=== PATIENT | male | born 1950 | race Caucasian/White ===

== ENCOUNTER 2023-05-09 11:20 | Outpatient (AMB) | payer MEDICARE, SELFPAY ==
--- NOTE | 2023-05-09 11:30 | MHC.PC.OV ---
Vital Signs 05/09/23 11:36 Height 6 ft 3.39 in Weight 189 lb BMI 23.4 BP 140/90 H Blood Pressure Location Lt brachial Position Sitting Pulse 77 Pulse Source Pulse Oximeter Pulse Oximetry (%) 99 Oxygen Delivery Method Room Air Intake Visit Reasons: high bp est. care Intake Note: Patient is a new patient here to establish care for HTN,Paroxysmal atrial fibrillation. Transferring care from Wilman Cramer MD from [facility]. 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: No Accompanied by: Self / Same As Patient Allergies LUCRECIA Inhibitors Allergy (Intermediate, Verified 05/09/23 12:02) Hyperkalemia Medication List - Last Reconciled 05/09/23 by Talha Hanson PA-C albuterol sulfate 90 mcg/actuation (Ventolin HFA) 2 puffs inhalation Q6H PRN 30 days aspirin (Adult Aspirin Regimen) 81 mg PO DAILY 90 days cholecalciferol (vitamin D3) 250 mcg PO DAILY ezetimibe (Zetia) 10 mg PO DAILY magnesium oxide 500 mg PO BID omega-3 fatty acids 1,000 mg PO BID rosuvastatin 10 mg PO DAILY 90 days telmisartan 80 mg PO DAILY 90 days ursodiol (BASIA Forte) 500 mg PO BEDTIME Tobacco use date assessed: 05/09/23 Fall risk assessment: No Falls in past year Last assessed Fall Risk: 05/09/23 Dental Screening Dental Screen Date: 05/09/23 Did you have a dental visit in the last 12 months?: Yes Did you have a dental problem in the last 6 months where you did not have access to dental care?: No Was dental information given to patient?: Patient has dentist HPI high bp est. care HPI Details Patient is a 73-year-old male here today for a new patient establish care visit./ Patient has a past medical history significant for hypertension, Congestive heart failure, asthma, hyperlipidemia Patient's previous PCP was Rub[facility]. He would like to establish care with local structural steel erector due to his dilated aorta and atherosclerotic heart disease. He continues on statin therapy and totally certain all for blood pressure control. Blood pressure slightly elevated today in office any attributes this to his recently traveling internationally. He otherwise denies any chest discomfort, palpitations. Does report mild headache at times. [facility] Medical History (Updated 05/09/23 @ 12:14 by Talha Hanson PA-C) Chronic prostatitis Social History Housing: House Patient Tobacco Use Status: Never used Tobacco e-Cigarette/Vaping Use: Never Used service: No Current occupational status: retired Current occupation: Cognitive needs: No Hearing needs: No Vision needs: No Questionnaire PHQ-9 Over the last 2 weeks, how often have you been bothered by any of the following problems? 1. Little interest or pleasure in doing things: not at all 2. Feeling down, depressed, or hopeless: not at all 3. Trouble falling or staying asleep, or sleeping too much: not at all 4. Feeling tired or having little energy: not at all 5. Poor appetite or overeating: not at all 6. Feeling bad about yourself - or that you are a failure or have let yourself or your family down: not at all 7. Trouble concentrating on things, such as reading the newspaper or watching television: not at all 8. Moving or speaking so slowly that other people could have noticed. Or the opposite - being so fidgety or restless that you have been moving around a lot more than usual: not at all 9. Thoughts that you would be better off or of hurting yourself in some way: not at all Total score: 0 Depression Screening Interpretation: Negative Depression Screening Done: Yes 60066 - PHQ-9 Billing: Yes Source: Developed by Drs. Mario Lee, Annabella Toscano, Gage Roberts and colleagues, with an educational malcolm from [employer]. Thrive Questionnaire Date Thrive assessed: 05/09/23 I am a: Patient What is your living situation today?: I have a steady place to live Within the past 12 months, did the food you bought not last and you didn't have the money to get more?: Never true Within the past 12 months, did you worry whether your food would run out before you got money to buy more?: Never true Do you have trouble paying for medicines?: No Do you have trouble getting transportation to medical appointments?: No Do you have trouble paying your heating and electricity bill?: No Do you have trouble taking care of your child, family member or friend?: No Do you have trouble with day-to-day activities such as bathing, preparing meals, shopping, managing finances, etc.?: No Are you currently unemployed and looking for a job?: No Are you interested in more education?: No Please select the resources that you would like help with: None Currently or been in a relationship where the following occur: no concerns reported AUDIT C Alcohol Use Questionnaire (AUDIT-C) 1. How often do you have a drink containing alcohol?: 2-3 times a week 2. How many drinks containing alcohol do you have on a typical day when you are drinking?: 1 or 2 3. How often do you have six or more drinks on one occasion?: Never Total Score: 3 NEMO-7 AMB Questionnaire NEMO-7 Date NEMO - 7 assessed: 05/09/23 Feeling nervous, anxious, or on edge: 0 = Not at all Not being able to stop or control worryin = Not at all Worrying too much about different things: 0 = Not at all Trouble relaxin = Not at all Being so restless that it is hard to sit still: 0 = Not at all Becoming easily annoyed or irritable: 0 = Not at all Feeling afraid as if something awful might happen: 0 = Not at all Total NEMO-7 score (0-4 normal; 5-9 mild; 10-14 moderate; 15-21 severe): 0 Source: Developed by Drs. Mario Lee, Annabella Toscano, Gage Roberts and colleagues, with an educational malcolm from [employer]. NEMO-7 Assessment Billing NEMO-7 Assessment Tool: NEMO-7 Assessment 99658 Review of Systems Const Denies headache(s) Eyes Denies loss of vision ENT Denies vertigo, Denies dizziness, Denies headache(s) and Denies sore throat Card Denies chest pain, Denies leg edema and Denies lightheadedness Resp Denies cough, Denies hemoptysis and Denies wheezing GI Denies abdominal pain, Denies melena, Denies constipation, Denies diarrhea and Denies vomiting Denies dysuria, Denies urinary frequency and Denies urinary urgency Musc Denies arthralgias, Denies joint swelling, Denies numbness and Denies tingling Neuro Denies Abnormal speech present, Denies behavioral changes, Denies vertigo, Denies dizziness, Denies headache(s), Denies loss of vision, Denies memory loss, Denies numbness and Denies tingling Psych Denies anxiety, Denies behavioral changes, Denies depression, Denies memory loss and Denies panic attacks Constantine/Lymph Denies easy bleeding and Denies easy bruising Aller/Immun Denies wheezing Physical exam (Primary Care) Vital Signs: Last Vital Signs Pulse 77 05/09/23 11:36 BP 140/90 H 05/09/23 11:36 Pulse Ox 99 05/09/23 11:36 Oxygen Delivery Method Room Air 05/09/23 11:36 BMI result Body Mass Index 23.4 Tobacco/Smoking Status: Tobacco use Status Tobacco use date assessed 05/09/23 05/09/23 11:52 Patient Tobacco Use Status Never used Tobacco 05/09/23 11:52 e-Cigarette/Vaping Use Never Used 05/09/23 11:52 PHQ-9: PHQ-9 Score PHQ-9: Total score 0 05/09/23 12:22 Depression Screening Interpretation: Negative Thrive Assessment: Date of Thrive Assessment Date Thrive assessed 05/09/23 05/09/23 11:52 Currently or been in a relationship where the following occur: no concerns reported Const General: healthy appearing, no acute distress, alert and awake Nutritional Appearance: well nourished Orientation/consciousness: oriented to person, oriented to place and oriented to time HENMT Ears: TM's normal bilaterally General nose exam: Normal nasal mucous membranes and turbinates present Eyes Conjunctivae: conjunctivae normal Sclerae: sclerae normal Pupils: Equal, round and reactive pupils present Neck Neck: Yes no lymphadenopathy and Yes no JVD Thyroid: Thyroid normal Carotids: no bruits Resp Effort & Inspection: normal respiratory effort and not tachypneic Auscultation: no crackles, no rales, no rhonchi and no wheezes Cardio Rate: regular rate Rhythm: regular rhythm Heart sounds: no murmurs and normal S1 and S2 GI Palpation (GI): Soft to palpation, nontender, no hepatomegaly and no splenomegaly Auscultation: normal bowel sounds Skin General skin exam: no rashes or lesions noted and dry skin Neuro General: oriented to person, oriented to place and oriented to time Cranial nerves: Yes Equal, round and reactive pupils present Speech: No Abnormal speech present Gait exam (Neuro): Normal gait present Motor exam (neuro): no tremor noted Extrem Right upper extremity: full ROM Left upper extremity: full ROM Right lower extremity: full ROM; no edema Left lower extremity: full ROM; no edema Psych Mental Status: mental status grossly normal Speech and movement: Normal speech and movement present Affect: normal affect Attitude: cooperative Thought process: Normal thought process present Office Procedures Flu Questionnaire Does the patient have a severe egg allergy?: No Does the patient have severe life threatening allergies?: No Does the patient have a fever or illness today?: No Has the patient ever had Guillain-[place] Syndrome?: No Has the patient ever had any past reaction to a flu shot?: No Immunizations flu vacc [id number] 6mos up(PF) 60 mcg(15 mcgx4)/0.5 mL IM syringe Performing Provider: Talha Hanson PA-C Performing Location: [facility] Administered by: ANDREZ Becerra on 05/09/23 12:22 Dose Route Admin Location Dispensed Lot Number Expiration Date NDC Brass Pickler 0.5 mL IM Left Deltoid 0.5 mL [id number] 12/23/23 [id number] De Correspondent VIS Given Date VIS Provided VIS Publication Date 05/09/23 Single Vaccine 21 Eligibility Eligibility Date Funding Source Not [facility] Eligible 05/09/23 Private Assessment and Plan Assessment & Plan (1) Atherosclerotic heart disease: Comment: CT angio August 2022 Code(s): I25.10 - Atherosclerotic heart disease of [place] coronary artery without angina pectoris Qualifiers: Associated angina: without angina Coronary Disease-Associated Artery/Lesion type: [place] artery [place] vs. transplanted heart: transplanted heart Qualified Code(s): I25.811 - Atherosclerosis of [place] coronary artery of transplanted heart without angina pectoris Plan: Was followed by Cardiology and the primary care while in [facility]. Would like to reestablish care with local structural steel erector. (2) Ascending aorta dilatation: Code(s): I77.810 - Thoracic aortic ectasia Plan: Was followed her ascending aorta lesion. Has been on beta-blockers does experience side effects. Was getting CT angiograms and a annual basis. Would like to establish care with Cardiology. (3) Hypertension: Code(s): I10 - Essential (primary) hypertension Qualifiers: Hypertension type: primary hypertension Qualified Code(s): I10 - Essential (primary) hypertension Plan: Patient's blood pressure elevated today in office. Continues on telimasartan 80 mg daily. 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 It was thought that this liver disease attributed to his atherosclerotic heart disease. (5) Asthma: Code(s): J45.909 - Unspecified asthma, uncomplicated Qualifiers: Asthma complication type: uncomplicated Asthma persistence: intermittent Asthma severity: mild Qualified Code(s): J45.20 - Mild intermittent asthma, uncomplicated Plan: Reports his asthma is fairly well controlled with only p.r.n. use of his albuterol inhaler. Denies any nighttime awakenings with asthma symptoms or recent exacerbations. (6) Hypercholesterolemia: Code(s): E78.00 - Pure hypercholesterolemia, unspecified Plan: Continues on statin therapy. Will recheck fasting lipid panel to assure LDL appropriate optimally below 70 Orders: Orders Lipid Panel 05/09/23 I25.811 - Atherosclerosis of [place] coronary artery of transplanted heart without angina pectoris Prostate Specific Antigen Scr 05/09/23 I10 - Essential (primary) hypertension, Z12.5 - Encounter for screening for malignant neoplasm of prostate Influenza [id number] Immunization 05/09/23 Z23 - Encounter for immunization Comprehensive [place]. Panel Fast 05/09/23 I25.811 - Atherosclerosis of [place] coronary artery of transplanted heart without angina pectoris Complete Blood Count no Diff 05/09/23 I25.811 - Atherosclerosis of [place] coronary artery of transplanted heart without angina pectoris Microalbumin, Random (w Creat) 05/09/23 I10 - Essential (primary) hypertension Referrals Cardiology Referral I77.810 - Thoracic aortic ectasia Medications: New telmisartan 80 mg PO DAILY 90 days 90 tabs 1RF I10 - Essential (primary) hypertension Changed From albuterol sulfate 90 mcg/actuation (Ventolin HFA) 2 puffs inhalation Q6H PRN 8.5 grams 0RF shortness of breath or wheezing J45.20 - Mild intermittent asthma, uncomplicated To albuterol sulfate 90 mcg/actuation (Ventolin HFA) 2 puffs inhalation Q6H 30 days PRN 8.5 grams 1RF shortness of breath or wheezing J45.20 - Mild intermittent asthma, uncomplicated From aspirin (Adult Aspirin Regimen) 81 mg PO DAILY 30 tabs 0RF I25.811 - Atherosclerosis of [place] coronary artery of transplanted heart without angina pectoris To aspirin (Adult Aspirin Regimen) 81 mg PO DAILY 90 days 90 tabs 1RF I25.811 - Atherosclerosis of [place] coronary artery of transplanted heart without angina pectoris From rosuvastatin 10 mg PO DAILY 30 tabs 0RF I25.811 - Atherosclerosis of [place] coronary artery of transplanted heart without angina pectoris To rosuvastatin 10 mg PO DAILY 90 days 90 tabs 1RF I25.811 - Atherosclerosis of [place] coronary artery of transplanted heart without angina pectoris From ursodiol (BASIA Forte) 500 mg PO BEDTIME E80.4 - Gilbert syndrome To ursodiol (BASIA Forte) 500 mg PO DAILY 90 days 90 tabs 1RF E80.4 - Gilbert syndrome From magnesium oxide 500 mg PO BID E80.4 - Gilbert syndrome To magnesium oxide 500 mg PO DAILY 90 days 90 tabs 1RF E80.4 - Gilbert syndrome Refilled ezetimibe (Zetia) 10 mg PO DAILY 90 tabs 1RF I25.811 - Atherosclerosis of [place] coronary artery of transplanted heart without angina pectoris Coding Level of Care Code New Pt Level 4 (58187) Diagnoses Atherosclerosis of [place] coronary artery of transplanted heart without angina pectoris I25.811 Associated angina: without angina Coronary Disease-Associated Artery/Lesion type: [place] artery [place] vs. transplanted heart: transplanted heart Ascending aorta dilatation I77.810 Primary hypertension I10 Hypertension type: primary hypertension Gilbert's disease E80.4 Mild intermittent asthma without complication J45.20 Asthma complication type: uncomplicated Asthma persistence: intermittent Asthma severity: mild Hypercholesterolemia E78.00 Additional Codes NEMO-7 Assessment Billing - NEMO-7 Assessment Tool: NEMO-7 Assessment 23234 ([id number])
[2023-05-09 11:36] VITALS: BP 140/90; PULSE 77; O2SAT 99; BMI 23.4
== END 2023-05-09 12:40 | disposition home or self-care (01) ==
PROVIDERS: PCP Internal Medicine; Visit Provider Physician Assistant
DX: Z23 Encounter for immunization (principal)
CPT/HCPCS: 90471; 90686; 99204

== ENCOUNTER 2023-05-09 12:46 | Outpatient (REF) | payer MEDICARE, SELFPAY ==
[2023-05-09 13:40] LABS: Hemoglobin 13.2 g/dl (14.0-18.0); Mean Corpuscular HGB Conc 32.2 g/dl (31.0-36.0); Mean Corpuscular Hemoglobin 30.1 pg (27.0-33.0); Mean Corpuscular Volume 93.6 fL (80.0-98.0); Mean Platelet Volume 10.2 fL (9.4-12.4); Platelet Count 266 X10*3/uL (160-400); Red Blood Count 4.38 X10*6/uL (4.60-5.80); Red Cell Distribution Width 12.1 % (11.0-16.0); White Blood Count 5.2 X10*3/uL (4.8-10.8)
[2023-05-09 14:52] LABS: Creatinine Urine 131.68 mg/dL; Microalbum/Creatinine Ratio Ur 4.5 ug/mg cr (<30)
[2023-05-09 14:54] LABS: Alanine Aminotransferase 12 U/L (0-40); Albumin Level 3.9 g/dL (3.5-5.0); Alkaline Phosphatase 131 U/L (39-117); Anion Gap 8 (12-20); Aspartate Amino Transferase 17 U/L (5-37); Bilirubin Total 1.1 mg/dL (0.0-1.0); Blood Urea Nitrogen 17 mg/dL (9-16); Calcium 8.8 mg/dL (8.4-10.2); Carbon Dioxide 29 mmol/L (22-29); Chloride 109 mmol/L (96-108); Cholesterol 117 mg/dL (<200); Estimated Glomerular Filt Rate > 60; Glucose Fasting 90 mg/dL (60-99); HDL Cholesterol 50 mg/dL (>40); LDL Cholesterol Calculated 58 mg/dL (<100); Potassium 4.2 mmol/L (3.3-5.1); Sodium 142 mmol/L (135-145); Total Protein 6.9 g/dL (6.5-8.0); Triglycerides 47 mg/dL (<150)
[2023-05-09 15:11] LABS: Prostate Specific Antigen Scr 0.76 ng/mL (<0.05-4.0)
== END 2023-05-09 12:47 | disposition home or self-care (01) ==
LOC: HO.LAB 12:46
PROVIDERS: Absent Provider Internal Medicine Cardiovascular Disease; PCP Internal Medicine; Visit Provider Physician Assistant
DX: I25.811 Atherosclerosis of native coronary artery of transplanted heart without angina pectoris (principal); I10 Essential (primary) hypertension; Z12.5 Encounter for screening for malignant neoplasm of prostate
CPT/HCPCS: 36415; 80053; 80061; 82043; 82570; 84153; 85027

== ENCOUNTER 2023-07-10 13:55 | Outpatient (AMB) | payer MEDICARE, SELFPAY ==
--- NOTE | 2023-07-10 13:57 | MHC.OFFVIS ---
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: No Allergies LUCRECIA Inhibitors Allergy (Intermediate, Verified 05/09/23 12:02) Hyperkalemia Medication List - Last Reconciled 07/10/23 by Waqas De Los Santos MD albuterol sulfate 90 mcg/actuation (Ventolin HFA) 2 puffs inhalation Q6H PRN 30 days aspirin (Adult Aspirin Regimen) 81 mg PO DAILY 90 days carvedilol 12.5 mg PO ONCE cholecalciferol (vitamin D3) 250 mcg PO DAILY ezetimibe (Zetia) 10 mg PO DAILY magnesium oxide 500 mg PO DAILY 90 days omega-3 fatty acids 1,000 mg PO BID rosuvastatin 10 mg PO DAILY 90 days telmisartan 80 mg PO DAILY 90 days ursodiol (BASIA Forte) 500 mg PO DAILY 90 days HPI HPI Comments History of Present Illness Details Thank you for referring Lio in cardiology consultation today for management of his cardiovascular disease. 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 He had multiple workup done in in there. He had 2 ablations starting in 1993, radiofrequency ablation and then in 2017 cryoablation for atrial fibrillation. Symptoms of rapid heart rate, dizziness and shortness of breath. Since then he has had no recurrent episodes. He had a coronary CTA done which showed nonobstructive CAD in all segments. He recalls being told that he had left bundle-branch block although there is no mention in the chart. He does also has history of hypertension with labile blood pressure as per him. He is very functional currently and denies any exertional symptoms. No symptoms of chest pain or shortness of breath. No lightheadedness, syncope. No prolonged irregular heartbeat or palpitations. He is referred here for further management. He currently is not on oral anticoagulation regimen and also on carvedilol only once a day therapy. He is also on low-dose statin and ezetimibe therapy. His last LDL was well optimized. He denies any prior history of stroke. He does have history of ascending aortic dilatation although the size is not measured. 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: No Hearing needs: No Vision needs: No Review of Systems Const Denies chills, Denies daytime sleepiness, Denies fatigue, Denies fever(s), Denies frequent falls, Denies poor appetite, Denies snoring, Denies stops breathing during sleep, Denies weakness, Denies weight gain and Denies weight loss Eyes Denies loss of vision ENT Denies dizziness and Denies hearing loss Card Denies chest pain, Denies claudication, Denies leg edema, Denies lightheadedness, Denies palpitations, Denies dyspnea, Denies dyspnea on exertion and Denies orthopnea Resp Denies cough, Denies excessive phlegm production, Denies dyspnea, Denies dyspnea on exertion, Denies snoring and Denies wheezing GI Denies abdominal pain, Denies hematochezia, Denies change in bowel habits, Denies nausea and Denies vomiting Denies dysuria and Denies urinary frequency Musc Denies arthralgias, Denies muscle weakness, Denies numbness and Denies other (frequent falls) Skin/Breast Denies nail changes and Denies rash Neuro Denies Abnormal speech present, Denies dizziness, Denies frequent falls, Denies loss of vision, Denies memory loss, Denies numbness and Denies weakness Psych Denies depression and Denies memory loss Endo Denies fatigue and Denies palpitations Constantine/Lymph Reports easy bruising and Reports other (anemia) Aller/Immun Denies wheezing Physical Exam Vital Signs: Last Vital Signs Pulse 73 07/10/23 14:00 BP 146/80 H 07/10/23 14:00 BMI result Body Mass Index 24.0 Const General: cooperative, comfortable, no acute distress, alert, awake and Physically active Nutritional Appearance: thin Orientation/consciousness: patient oriented x3 Limitations: no limitations HEENT Head: Yes normocephalic and Yes atraumatic Neck Neck: Yes trachea midline, Yes supple and Yes no JVD Resp Effort & Inspection: normal respiratory effort Auscultation: clear to auscultation bilaterally Cardio Jugular venous distension: no JVD Palpation: normal PMI Rate: regular rate Rhythm: regular rhythm Heart sounds: S1 normal heart sound present, S2 normal heart sound present, no click, no gallops, no murmurs and no rubs GI Auscultation: normal bowel sounds Skin General skin exam: no rashes or lesions noted Neuro General: patient oriented x3 and no focal motor deficits Speech: No Abnormal speech present Extrem General: Yes no clubbing, cyanosis or edema Psych Appearance: grossly normal Office Procedures EKG Details: EKG shows normal sinus rhythm with left bundle-branch block at 73 beats per minute [id number], Complete Assessment & Plan Assessment & Plan (1) Paroxysmal atrial fibrillation: Comment: Status post radiofrequency ablation in 1993 and cryoablation in 2016 Code(s): I48.0 - Paroxysmal atrial fibrillation Plan: Patient with prior history of paroxysmal atrial fibrillation status post ablation. Patient was very symptomatic during these episodes. He has had no recurrent events since then. Advised to continue to avoid stimulants. Continue carvedilol therapy but should be twice a day as once a day does not have 24 hour coverage. Discussed with him about need for oral anticoagulation therapy. CHADSVASc score is 3, and aspirin is not adequate protection. This was discussed with him. Discussed to start Eliquis which has similar bleeding risk for better protection. (2) Atherosclerotic heart disease: Comment: CT angio August 2022 Code(s): I25.10 - Atherosclerotic heart disease of [place] coronary artery without angina pectoris Qualifiers: Associated angina: without angina Coronary Disease-Associated Artery/Lesion type: [place] artery [place] vs. transplanted heart: transplanted heart Qualified Code(s): I25.811 - Atherosclerosis of [place] coronary artery of transplanted heart without angina pectoris Plan: CAD by coronary CTA which is nonobstructive. Patient has no current symptoms suggestive of myocardial ischemia. Continue aggressive vascular risk factor modification. Better control blood pressure is necessary with target goal blood pressure less than 130/84. Advised to monitor blood pressure on more regular basis. Low-salt diet was discussed. Will change carvedilol to 6.25 mg b.i.d. and continue Micardis 80 mg daily. He is currently on well optimized LDL regimen of low-dose statin as well as ezetimibe therapy. Continue the same. As he is going to be on full oral anticoagulation would avoid antiplatelet agent to reduce bleeding risk. Advised to call me with any new symptoms. (3) Left bundle branch block: Code(s): I44.7 - Left bundle-branch block, unspecified Plan: Left bundle-branch block which appears to be old. He currently is not having any symptoms related to it. No interventions required. Pathophysiology of left bundle-branch was discussed. One in 6 patients can develop cardiomyopathy. Will assess an echocardiogram in near future to assess for LV systolic function as well as ascending aortic size. Will follow up in the clinic in 6 months time on patient's request. Orders: Orders CA echo transthoracic complete Today I44.7 - Left bundle-branch block, unspecified Medications: New apixaban (Eliquis) 5 mg PO BID 60 tabs 5RF carvedilol (Coreg) must administer with a meal/food 6.25 mg PO Q12H 60 tabs 5RF Discontinued aspirin (Adult Aspirin Regimen) Discontinued Reason: Doctor's Order 81 mg PO DAILY 90 days 90 tabs 1RF I25.811 - Atherosclerosis of [place] coronary artery of transplanted heart without angina pectoris Coding Level of Care Code New Pt Level 4 (37831) Diagnoses Paroxysmal atrial fibrillation I48.0 Atherosclerosis of [place] coronary artery of transplanted heart without angina pectoris I25.811 Associated angina: without angina Coronary Disease-Associated Artery/Lesion type: [place] artery [place] vs. transplanted heart: transplanted heart Left bundle branch block I44.7 CPT Codes EKG - CPT: 06286-[id number], Complete ([id number])
[2023-07-10 14:00] VITALS: BP 146/80; PULSE 73; BMI 24.0
== END 2023-07-10 14:50 | disposition home or self-care (01) ==
PROVIDERS: PCP Internal Medicine; Visit Provider Internal Medicine Cardiovascular Disease
DX: I48.0 Paroxysmal atrial fibrillation (principal); I25.811 Atherosclerosis of native coronary artery of transplanted heart without angina pectoris; I44.7 Left bundle-branch block, unspecified
CPT/HCPCS: 93010; 99204

== ENCOUNTER → 2023-07-10 13:55 | Outpatient (BNVA) | payer MEDICARE, SELFPAY | PROVIDERS: PCP Internal Medicine; Visit Provider Internal Medicine Cardiovascular Disease | DX: I48.0 Paroxysmal atrial fibrillation (principal); I25.811 Atherosclerosis of native coronary artery of transplanted heart without angina pectoris; I44.7 Left bundle-branch block, unspecified; Z79.899 Other long term (current) drug therapy | CPT/HCPCS: 93005; 99202 ==

== ENCOUNTER → 2023-07-30 08:39 | Outpatient (REF) | payer MEDICARE, SELFPAY ==
--- NOTE | 2023-07-30 08:43 | CA_ITS ---
Transthoracic Echocardiogram Patient (Last, First, Middle): Lio Briggs C Gender: Male Date of : 1950 Age: 73 Procedure Date: 07/30/2023 Procedure Type: Transthoracic Echocardiogram Location: OP Height: 193.04 cm Weight: 86.18 kg BSA: 2.17 m2 Heart Rate: bpm BP: 115 / 75 mmHg Print Machine Operator: JEANMARIE Referring MD: Waqas De Los Santos MD Symptoms: I44.7 - Left bundle-branch block, unspecified Study Quality: Fair ECG Rhythm: Left bundle-branch block Conclusions: - The left ventricular systolic function is mildly decreased. The calculated ejection fraction is 51% by biplane method. - There is mild calcification of the aortic valve. - There is mild dilatation of the ascending aorta measuring 4.40 cm. Findings Left Ventricle Normal left ventricular cavity size. The left ventricular systolic function is mildly decreased. The calculated ejection fraction is 51% by biplane method. There is no evidence of regional wall motion abnormalities. Evidence suggests grade I (mild) diastolic dysfunction. There is mild septal and mild basal asymmetric hypertrophy. Right Ventricle Normal right ventricular cavity size and systolic function. Atria Both atria are normal in size. Aortic Valve There is a normal trileaflet aortic valve. There is mild calcification of the aortic valve. There is no aortic valve stenosis. There is no aortic valve regurgitation. Mitral Valve The mitral valve appears normal. There is trace mitral valve regurgitation. There is no mitral valve stenosis. Pulmonic Valve The pulmonic valve is likely normal. Tricuspid Valve There is trace tricuspid valve regurgitation. There is no evidence of pulmonary hypertension. Great Vessels There is mild dilatation of the ascending aorta measuring 4.40 cm. Venous The inferior vena cava was not well visualized. The inferior vena cava is normal in size. Pericardium/Pleural There is no evidence of pericardial effusion. Prior Study Comparison No prior study available for comparison. Measurements 2D Linear Measurements IVSd: 1.09 0.6-0.9/0.6-1.0 cm LVIDd: 4.75 3.9-5.3/4.2-5.9 cm LVIDd Index: 2.19 2.4-3.2/2.2-3.1 cm/m2 LVIDs: 3.64 2.0-3.6 cm LVPWd: 1.00 0.7-1.1 cm LA Diam: 3.00 2.7-3.8/3.0-4.0 cm LAIDs Index: 1.38 1.5-2.3 cm/m2 LV Mass: 221.36 67-162/88-224 g LV Mass Index: 102.01 43-95/49-115 g/m2 LVOT Diam: 1.90 3.0+(-)1.3 cm 2D Systolic Function EF 4C: 52.20 >55% EF 2C: 49.80 >55% EF BiP: 51.10 >55% Mitral Valve MV Pk E: 0.73 MV PK A: 0.86 MV Decel Time: 255.00 E/A: 0.80 E'Lateral: 5.87 E'Medial: 4.24 E/E' Med: 17.20 E/E' Lat: 12.40 PHT: 75.00 MVA PHT: 2.93 Decel Carroll: 2.85 Aortic Valve AoV Pk Manjeet: 1.31 AoV Mn Manjeet: 0.97 AoV VTI: 0.28 AoV Pk Grad: 7.00 Aov Mn Grad: 4.00 LUCINA Cont.VTI: 2.29 LVOT LVOT Pk Manjeet: 1.02 LVOT Mn Manjeet: 0.74 LVOT VTI: 0.23 LVOT Pk Grad: 4.00 LVOT Mn Grad: 2.00 LVOT Diam: 1.90 LVOT Area: 2.84 Diastolic Function MV Pk E: 0.73 MV Pk A: 0.86 E/A: 0.80 E'Medial: 4.24 E/E' Med: 17.20 E' Laterial: 5.87 E/E' Lat: 12.40 Right Ventricle TAPSE (mm): 17.80 TVS' Manjeet: 10.80 Tricuspid Valve TR Pk Manjeet: 1.65 TR Pk Grad: 11.00 Great Vessels Aorta Sinus of Valsalva: 4.00 2.0-3.5 cm Ao Asc: 4.40 2.1-3.4 cm Pulmonary Valve PV Pk Manjeet: 1.01 Peak PV Grad: 4.00 Updated in Other Vendor System with Status of Final Honorio Coe MD electronically signed on 07/30/2023 8:10:29 AM with status of Final
== END ==
LOC: HO.CARD 08:39
PROVIDERS: PCP Internal Medicine; Visit Provider Internal Medicine Cardiovascular Disease
DX: I44.7 Left bundle-branch block, unspecified (principal)
CPT/HCPCS: 93306

== ENCOUNTER → 2023-07-30 08:43 | Outpatient (BNV) | payer MEDICARE, SELFPAY | PROVIDERS: PCP Internal Medicine; Visit Provider Internal Medicine | DX: I35.8 Other nonrheumatic aortic valve disorders (principal) | CPT/HCPCS: 93306 ==

== ENCOUNTER 2023-08-24 13:31 | Outpatient (AMB) | payer MEDICARE, SELFPAY ==
[2023-08-24 13:34] VITALS: BP 160/90; PULSE 66; O2SAT 100; BMI 23.1
--- NOTE | 2023-08-24 13:34 | MHC.PC.OV ---
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 Allergies LUCRECIA Inhibitors Allergy (Intermediate, Verified 08/24/23 13:39) Hyperkalemia Medication List - Last Reconciled 08/24/23 by Shira Yusuf MD albuterol sulfate 90 mcg/actuation (Ventolin HFA) 2 puffs inhalation Q6H PRN apixaban (Eliquis) 5 mg PO BID 90 days carvedilol (Coreg) 6.25 mg PO Q12H 90 days cholecalciferol (vitamin D3) 250 mcg PO DAILY cyanocobalamin (vitamin B-12) 1,000 mcg PO DAILY ezetimibe (Zetia) 10 mg PO DAILY glucosamine HCl 500 mg PO DAILY lactobacillus combination no.4 (Probiotic) 3,000 mmu cells PO DAILY magnesium oxide 500 mg PO DAILY 90 days multivitamin 1 tab PO DAILY omega-3 fatty acids 1,000 mg PO BID polyvinyl alcohol 1.4% (Artificial Tears (polyvinyl alcohol)) 1 drp ophthalmic (eye) BID-QID PRN rosuvastatin 10 mg PO DAILY 90 days telmisartan 80 mg PO DAILY 90 days ursodiol (BASIA Forte) 500 mg PO DAILY Tobacco use date assessed: 08/24/23 Fall risk assessment: No Falls in past year Last assessed Fall Risk: 08/24/23 Dental Screening Dental Screen Date: 08/24/23 Did you have a dental visit in the last 12 months?: Yes Did you have a dental problem in the last 6 months where you did not have access to dental care?: No Was dental information given to patient?: Patient has dentist HPI Est care HPI Details 73-year-old male with multiple medical problems. Coronary artery disease atrial fibrillation hypertension hypercholesterolemia ascending aorta dilatation. Patient is being followed up by Cardiology and had an echocardiogram left ventricular ejection fraction 51% mild calcification of the aortic valve mild dilatation of the ascending aorta 4.4 cm this was done in July 2023 patient has met with Cardiology in June 2023 atrial fibrillation(2 ablations 1993 then radiofrequency and cryoablation 2016) nonobstructive coronary artery disease(CT August 2022). Patient is advised to be on anticoagulation. Blood pressure target f 130/84 advised to change carvedilol to 6.25 twice a day and continue Micardis 80 mg once a day [facility] Medical History (Updated 08/24/23 @ 14:24 by Shira Yusuf MD) Left bundle branch block Paroxysmal atrial fibrillation Chronic prostatitis Surgical History (Updated 08/24/23 @ 14:14 by Shira Yusuf MD) History of cataract surgery History of lumbar surgery Social History (Updated 08/24/23 @ 14:05 by Shira Yusuf MD) Housing: House Alcohol intake: current Comment: 1-2 glasses of wine QD Patient Tobacco Use Status: Never used Tobacco e-Cigarette/Vaping Use: Never Used service: No 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 1. Little interest or pleasure in doing things: not at all 2. Feeling down, depressed, or hopeless: not at all 3. Trouble falling or staying asleep, or sleeping too much: not at all 4. Feeling tired or having little energy: not at all 5. Poor appetite or overeating: not at all 6. Feeling bad about yourself - or that you are a failure or have let yourself or your family down: not at all 7. Trouble concentrating on things, such as reading the newspaper or watching television: not at all 8. Moving or speaking so slowly that other people could have noticed. Or the opposite - being so fidgety or restless that you have been moving around a lot more than usual: not at all 9. Thoughts that you would be better off or of hurting yourself in some way: not at all Total score: 0 Depression Screening Interpretation: Negative Depression Screening Done: Yes Source: Developed by Drs. Mario Lee, Annabella Toscano, Gage Roberts and colleagues, with an educational malcolm from [employer]. Thrive Questionnaire Date Thrive assessed: 08/24/23 I am a: Patient What is your living situation today?: I have a steady place to live Within the past 12 months, did the food you bought not last and you didn't have the money to get more?: Never true Within the past 12 months, did you worry whether your food would run out before you got money to buy more?: Never true Do you have trouble paying for medicines?: No Do you have trouble getting transportation to medical appointments?: No Do you have trouble paying your heating and electricity bill?: No Do you have trouble taking care of your child, family member or friend?: No Do you have trouble with day-to-day activities such as bathing, preparing meals, shopping, managing finances, etc.?: No Are you currently unemployed and looking for a job?: No Are you interested in more education?: No Please select the resources that you would like help with: None THRIVE Score: 0 AUDIT C Alcohol Use Questionnaire (AUDIT-C) 1. How often do you have a drink containing alcohol?: 2-3 times a week 2. How many drinks containing alcohol do you have on a typical day when you are drinking?: 1 or 2 3. How often do you have six or more drinks on one occasion?: Never Total Score: 3 NEMO-7 AMB Questionnaire NEMO-7 Date NEMO - 7 assessed: 08/24/23 Feeling nervous, anxious, or on edge: 0 = Not at all Not being able to stop or control worryin = Not at all Worrying too much about different things: 0 = Not at all Trouble relaxin = Not at all Being so restless that it is hard to sit still: 0 = Not at all Becoming easily annoyed or irritable: 0 = Not at all Feeling afraid as if something awful might happen: 0 = Not at all Total NEMO-7 score (0-4 normal; 5-9 mild; 10-14 moderate; 15-21 severe): 0 Source: Developed by Drs. Mario Lee, Annabella Toscano, Gage Roberts and colleagues, with an educational malcolm from [employer]. Physical exam (Primary Care) Vital Signs: Last Vital Signs Pulse 66 08/24/23 13:34 BP 160/90 H 08/24/23 13:34 Pulse Ox 100 08/24/23 13:34 Oxygen Delivery Method Room Air 08/24/23 13:34 BMI result Body Mass Index 23.1 Tobacco/Smoking Status: Tobacco use Status Tobacco use date assessed 08/24/23 08/24/23 13:35 Patient Tobacco Use Status Never used Tobacco 08/24/23 14:05 e-Cigarette/Vaping Use Never Used 08/24/23 14:05 PHQ-9: PHQ-9 Score PHQ-9: Total score 0 08/24/23 14:30 Depression Screening Interpretation: Negative Thrive Assessment: Date of Thrive Assessment Date Thrive assessed 08/24/23 08/24/23 13:35 Const General: alert; No acute distress Eyes Conjunctivae: conjunctivae normal Resp Auscultation: clear to auscultation bilaterally Cardio Rate: regular rate Rhythm: regular rhythm GI Inspection: Yes normal to inspection Extrem General: Yes normal to inspection and No edema Immunizations pneumoc 20-kian conj-dip cr(PF) 0.5 mL IM syringe Performing Provider: Shira Yusuf MD [place] [facility] [place] [facility] Administered by: SAMEER Yi on 08/24/23 14:30 Dose Route Admin Location Dispensed Lot Number Expiration Date popexpert Sheet Finisher 0.5 mL IM Right Deltoid 0.5 mL [id number] 08/23/24 1209-5493-40 WYETH/PFIZER VIS Given Date VIS Provided VIS Publication Date 08/24/23 Single Vaccine 21 Eligibility Eligibility Date Funding Source Not VFC Eligible 08/24/23 Private tetanus-diphtheria toxoids-Td 2 Lf unit-2 Lf unit/0.5 mL IM suspension Performing Provider: Shira Yusuf MD [place]forming [place] [facility] [facility] Administered by: SAMEER Yi on 08/24/23 14:30 Dose Route Admin Location Dispensed Lot Number Expiration Date [employer] Sheet Finisher 0.5 mL IM Left Deltoid 0.5 mL [id number] 07/26/24 [address]-0 [employer] VIS Given Date VIS Provided VIS Publication Date 08/24/23 Single Vaccine 21 Eligibility Eligibility Date Funding Source Not VFC Eligible 08/24/23 State funds Assessment and Plan Assessment & Plan (1) Atherosclerotic heart disease: Comment: CT angio August 2022, echocardiogram July 2023 51% Code(s): I25.10 - Atherosclerotic heart disease of [place] coronary artery without angina pectoris Qualifiers: Associated angina: without angina Coronary Disease-Associated Artery/Lesion type: [place] artery [place] vs. transplanted heart: transplanted heart Qualified Code(s): I25.811 - Atherosclerosis of [place] coronary artery of transplanted heart without angina pectoris Plan: Control the cholesterol, weight, blood pressure, diabetes patient has been started on anticoagulation (2) Ascending aorta dilatation: Comment: 4.4 cm July 2023 Code(s): I77.810 - Thoracic aortic ectasia Plan: Discussed about the size and concerns. (3) Hypertension: Code(s): I10 - Essential (primary) hypertension Qualifiers: Hypertension type: primary hypertension Qualified Code(s): I10 - Essential (primary) hypertension Plan: Continue with blood pressure medication. Decrease salt intake and exercise changed carvedilol to 6.25 mg twice a day and telmisartan 80 mg once a day. check BP at home and is good averaging 135/80 (4) Hypercholesterolemia: Code(s): E78.00 - Pure hypercholesterolemia, unspecified Plan: Avoid fried foods, chicken skin, eggs, butter margarine, pastries and meat. Be it pork or beef they have a lot of cholesterol LDL goal of less than 70 and triglyceride of less than 150. Patient's last blood work April 2023 at goal. (5) Paroxysmal atrial fibrillation: Comment: Status post radiofrequency ablation in 1993 and cryoablation in 2016 Code(s): I48.0 - Paroxysmal atrial fibrillation Plan: Patient has spoken to Cardiology and started on an anticoagulation (6) Asthma: Code(s): J45.909 - Unspecified asthma, uncomplicated Qualifiers: Asthma complication type: uncomplicated Asthma persistence: intermittent Asthma severity: mild Qualified Code(s): J45.20 - Mild intermittent asthma, uncomplicated Plan: Continue with the inhaler as needed (7) Colon cancer screening: Code(s): Z12.11 - Encounter for screening for malignant neoplasm of colon (8) Lumbar degenerative disc disease: Comment: s/p Surgery L5 -Si 2004 JApan Code(s): M51.36 - Other intervertebral disc degeneration, lumbar region (9) Erectile dysfunction: Code(s): N52.9 - Male erectile dysfunction, unspecified (10) Frequency of micturition: Code(s): R35.0 - Frequency of micturition (11) Dry eye: Code(s): H04.129 - Dry eye syndrome of unspecified lacrimal gland Orders: Orders Thyroid Stimulating Hormone 3 Months I48.0 - Paroxysmal atrial fibrillation Free T4 (Free Thyroxine) 3 Months I48.0 - Paroxysmal atrial fibrillation IRON PROFILE 3 Months I48.0 - Paroxysmal atrial fibrillation Vitamin B12 and Folate 3 Months I48.0 - Paroxysmal atrial fibrillation US bladder Today R35.0 - Frequency of micturition Pneumococcal 20 Immunization Today Z23 - Encounter for immunization Comprehensive Met. Panel 3 Months I48.0 - Paroxysmal atrial fibrillation Complete Blood Count Auto Diff 3 Months I48.0 - Paroxysmal atrial fibrillation Reticulocyte Count 3 Months I48.0 - Paroxysmal atrial fibrillation Ferritin 3 Months I48.0 - Paroxysmal atrial fibrillation Vitamin D 25-OH Total 3 Months I48.0 - Paroxysmal atrial fibrillation UA w Microscopic Today R35.0 - Frequency of micturition Td State Immunization Today Z23 - Encounter for immunization Referrals Chiropractic Referral M51.36 - Other intervertebral disc degeneration, lumbar region Gastroenterology Referral Z12.11 - Encounter for screening for malignant neoplasm of colon Medications: New polyvinyl alcohol 1.4% (Artificial Tears (polyvinyl alcohol)) 1 drp ophthalmic (eye) BID-QID PRN 15 mL 2RF dry eye(s) H04.129 - Dry eye syndrome of unspecified lacrimal gland Changed From albuterol sulfate 90 mcg/actuation (Ventolin HFA) 2 puffs inhalation Q6H 30 days PRN 8.5 grams 1RF shortness of breath or wheezing J45.20 - Mild intermittent asthma, uncomplicated To albuterol sulfate 90 mcg/actuation (Ventolin HFA) 2 puffs inhalation Q6H PRN J45.20 - Mild intermittent asthma, uncomplicated From ursodiol (BASIA Forte) 500 mg PO DAILY 90 days 90 tabs 1RF E80.4 - Gilbert syndrome To ursodiol (BASIA Forte) 500 mg PO DAILY E80.4 - Gilbert syndrome From carvedilol (Coreg) must administer with a meal/food 6.25 mg PO Q12H 60 tabs 5RF I48.0 - Paroxysmal atrial fibrillation To carvedilol (Coreg) must administer with a meal/food 6.25 mg PO Q12H 180 tabs 2RF 90 days I48.0 - Paroxysmal atrial fibrillation From apixaban (Eliquis) 5 mg PO BID 60 tabs 5RF I48.0 - Paroxysmal atrial fibrillation To apixaban (Eliquis) 5 mg PO BID 180 tabs 2RF 90 days I48.0 - Paroxysmal atrial fibrillation Coding Level of Care Code Est Pt Level 4 (17402) Diagnoses Atherosclerosis of [place] coronary artery of transplanted heart without angina pectoris I25.811 Associated angina: without angina Coronary Disease-Associated Artery/Lesion type: [place] artery [place] vs. transplanted heart: transplanted heart Ascending aorta dilatation I77.810 Primary hypertension I10 Hypertension type: primary hypertension Hypercholesterolemia E78.00 Paroxysmal atrial fibrillation I48.0 Mild intermittent asthma without complication J45.20 Asthma complication type: uncomplicated Asthma persistence: intermittent Asthma severity: mild Colon cancer screening Z12.11 Lumbar degenerative disc disease M51.36 Erectile dysfunction N52.9 Frequency of micturition R35.0 Dry eye H04.129
== END 2023-08-24 14:44 | disposition home or self-care (01) ==
PROVIDERS: PCP Internal Medicine; Visit Provider Internal Medicine
DX: I25.811 Atherosclerosis of native coronary artery of transplanted heart without angina pectoris (principal); I77.810 Thoracic aortic ectasia; I48.0 Paroxysmal atrial fibrillation; Z23 Encounter for immunization; I10 Essential (primary) hypertension; E78.00 Pure hypercholesterolemia, unspecified; J45.20 Mild intermittent asthma, uncomplicated; Z12.11 Encounter for screening for malignant neoplasm of colon; M51.36 Other intervertebral disc degeneration, lumbar region; N52.9 Male erectile dysfunction, unspecified; R35.0 Frequency of micturition; H04.129 Dry eye syndrome of unspecified lacrimal gland
CPT/HCPCS: 90471; 90677; 90714; 99214

== ENCOUNTER 2023-09-12 10:45 | Outpatient (REF) | payer MEDICARE, SELFPAY ==
--- NOTE | ~2023-09-12 | US_ITS ---
EXAMINATION: US PELVIS LIMITED (BLADDER) CLINICAL INFORMATION: Frequency of micturition. COMPARISON: None available. TECHNIQUE: Real-time imaging of the bladder. FINDINGS: The bladder is well distended. There appears to be mild trabeculation of the bladder wall diffusely. Bilateral ureteral jets are demonstrated. Prevoid bladder volume is 161.8 mL. Postvoid bladder volume is 57.6 mL. PROSTATE GLAND: 4.6 x 4.8 x 3.5 cm, volume 41 mL. Coarse calcifications are noted within the prostate gland. US/US bladder IMPRESSION: 1. Prominent post void bladder residual of 52 mL. 2. Mild trabeculation of the bladder wall diffusely.
== END 2023-09-12 10:46 | disposition home or self-care (01) ==
LOC: HO.US 10:45
PROVIDERS: PCP Internal Medicine; Visit Provider Internal Medicine
DX: R35.0 Frequency of micturition (principal)
CPT/HCPCS: 76857

== ENCOUNTER 2023-11-16 12:58 | Outpatient (AMB) | payer MEDICARE, SELFPAY ==
--- NOTE | 2023-11-16 13:17 | A.OFFVIS_ITS ---
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 Accompanied by: Self / Same As Patient Allergies LUCRECIA Inhibitors Allergy (Intermediate, Verified 12/05/23 10:42) Hyperkalemia Medication List - Last Reconciled 11/16/23 by Arcenio Garcia MD albuterol sulfate 90 mcg/actuation (Ventolin HFA) 2 puffs inhalation Q6H PRN apixaban (Eliquis) 5 mg PO BID 90 days carvedilol (Coreg) 6.25 mg PO Q12H 90 days cholecalciferol (vitamin D3) 250 mcg PO DAILY cyanocobalamin (vitamin B-12) 1,000 mcg PO DAILY doxycycline hyclate 200 mg (2 x 100 mg) PO ONCE ezetimibe (Zetia) 10 mg PO DAILY glucosamine HCl 500 mg PO DAILY lactobacillus combination no.4 (Probiotic) 3,000 mmu cells PO DAILY magnesium oxide 500 mg PO DAILY 90 days multivitamin 1 tab PO DAILY omega-3 fatty acids 1,000 mg PO BID polyvinyl alcohol 1.4% (Artificial Tears (polyvinyl alcohol)) 1 drp ophthalmic (eye) BID-QID PRN rosuvastatin 10 mg PO DAILY 90 days tamsulosin 0.4 mg PO BEDTIME telmisartan 80 mg PO DAILY 90 days terazosin 10 mg PO BEDTIME 30 days ursodiol (BASIA Forte) 500 mg PO DAILY HPI Comments Details: Lio is a pleasant male. He is a patient of Dr. Yusuf. He has seen for the following urologic conditions - lower urinary tract symptoms Lower urinary tract symptoms Progressive Primarily weakness of stream with difficulty emptying Trial of terazosin Follow-up cystoscopy [facility] Medical History (Updated 12/05/23 @ 11:14 by Shira Yusuf MD) Left bundle branch block Paroxysmal atrial fibrillation Chronic prostatitis Surgical History (Updated 08/24/23 @ 14:14 by Shira Yusuf MD) History of cataract surgery History of lumbar surgery Social History (Updated 08/24/23 @ 14:05 by Shira Yusuf MD) Housing: House Alcohol intake: current Comment: 1-2 glasses of wine QD Patient Tobacco Use Status: Never used Tobacco e-Cigarette/Vaping Use: Never Used service: No 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: No Hearing needs: No Vision needs: No Review of Systems Const Denies chills and Denies fever(s) Card Reports no additional complaints and Denies syncope Resp Denies cough GI Denies abdominal pain and Denies heartburn Reports as per HPI and Denies change in libido Neuro Denies syncope Psych Denies change in libido Endo Denies change in libido Physical Exam Const General: cooperative, healthy appearing, comfortable and no acute distress Orientation/consciousness: patient oriented x3 HEENT Face and sinus: Yes normal facial exam Mouth: moist mucous membranes Neck Neck: Yes normal visual inspection, Yes full ROM and Yes trachea midline Chest Chest palpation & inspection: normal inspection of the chest Resp Effort & Inspection: normal respiratory effort, able to speak in complete sentences and no respiratory distress GI Inspection: Yes normal to inspection Back/Spine/Pelvis Cervical Spine: normal cervical lordosis Thoracic/Lumbar Spine: thoracic and lumbar spine normal to inspection Skin General skin exam: no rashes or lesions noted Neuro General: patient oriented x3, gait normal, tone normal and moves all extremities Extrem General: Yes normal to inspection and Yes capillary refill normal Office Procedures Post Void Residual Post Residual Void Post Void Residual (PVR): 23 [id number] Void Residual by ultrasound Assessment & Plan Assessment & Plan (1) BPH (benign prostatic hyperplasia): Code(s): N40.0 - Benign prostatic hyperplasia without lower urinary tract symptoms Category: Medical Plan Trial terazosin Orders: Orders US bladder 11/16/23 R39.12 - Poor urinary stream, N40.0 - Benign prostatic hyperplasia without lower urinary tract symptoms AMB Urinalysis Automated 11/16/23 Z13.9 - Encounter for screening, unspecified AMB Post Void Residual by ultrasound 11/16/23 N39.8 - Other specified disorders of urinary system Medications: New terazosin 10 mg PO BEDTIME 30 caps 1RF 30 days N40.0 - Benign prostatic hyperplasia without lower urinary tract symptoms, N40.1 - Benign prostatic hyperplasia with lower urinary tract symptoms, N13.8 - Other obstructive and reflux uropathy Patient Instructions: Imaging studies, laboratory and physical exam results were discussed and reviewed in detail. No major barriers to patient understanding were identified. An opportunity to ask questions regarding the treatment plan was provided. All questions were answered. The patient expressed understanding and agreement with the above treatment plan. The patient is aware they should contact our office by phone for worsening of their current condition or the appearance of new urologic symptoms. Compliance is encouraged with any medications and followup testing that is ordered. It is a privilege to participate in the urologic care of your patient. If you have any questions or concerns regarding treatment for the above conditions, or other urologic issues, please do not hesitate to contact me. The office telephone contact is [phone]. This note is constructed using voice recognition software. While every effort has been made to ensure accuracy drilling engineer errors may have been included. Yours sincerely, Dr Arcenio Garcia MD, [facility] - Urology Providers of Expert, Compassionate Care for the Genitourinary System Coding Level of Care Code New Pt Level 4 (06321) Diagnoses BPH (benign prostatic hyperplasia) N40.0 CPT Codes Post Residual Void - PVR CPT Code: 31585-Abdz Void Residual by ultrasound ([id number])
== END 2023-11-16 14:28 | disposition home or self-care (01) ==
PROVIDERS: PCP Internal Medicine; Visit Provider Urology
DX: N40.0 Benign prostatic hyperplasia without lower urinary tract symptoms (principal)
CPT/HCPCS: 99204

== ENCOUNTER → 2023-11-16 12:58 | Outpatient (BNVA) | payer MEDICARE, SELFPAY | PROVIDERS: PCP Internal Medicine; Visit Provider Urology | DX: N40.0 Benign prostatic hyperplasia without lower urinary tract symptoms (principal) | CPT/HCPCS: 51798; 99202 ==

== ENCOUNTER 2023-12-01 09:56 | Outpatient (REF) | payer MEDICARE, SELFPAY ==
[2023-12-01 10:06] LABS: MANUAL DIFF FLAG NO
[2023-12-01 10:23] LABS: Basophils Percent Auto 0.5 % (0-2); Eosinophils Absolute Auto 0.1 X10*3/uL (0.0-0.4); Eosinophils Percent Auto 2.7 % (0-4); Hematocrit 38.4 % (42.0-52.0); Hemoglobin 12.8 g/dl (14.0-18.0); Imm Gran Abs Auto 0.01 X10*3/uL (0.00-0.03); Imm Gran Pct Auto 0.2 % (0.0-0.4); Immature Retic Fraction 10.3 % (2.3-13.4); Lymphocytes Absolute Auto 1.2 X10*3/uL (1.2-4.9); Lymphocytes Percent Auto 26.4 % (20-40); Mean Corpuscular HGB Conc 33.3 g/dl (31.0-36.0); Mean Corpuscular Hemoglobin 31.3 pg (27.0-33.0); Mean Corpuscular Volume 93.9 fL (80.0-98.0); Mean Platelet Volume 9.9 fL (9.4-12.4); Monocytes Absolute Auto 0.5 X10*3/uL (0.1-1.2); Monocytes Percent Auto 11.1 % (2-11); Neutrophils Absolute Auto 2.6 x10*3/uL (2.0-8.3); Neutrophils Percent Auto 59.1 % (45-73); Platelet Count 234 X10*3/uL (160-400); Red Blood Count 4.09 X10*6/uL (4.60-5.80); Red Cell Distribution Width 11.9 % (11.0-16.0); Retic HGB Equivalent 34.3 pg (30.0-35.0); Reticulocyte Percent 1.1 % (0.5-1.8); Reticulocytes Absolute 0.043 X10*6/uL (0.026-0.095); White Blood Count 4.4 X10*3/uL (4.8-10.8)
[2023-12-01 10:42] LABS: Appearance Urine Clear; Color Urine Yellow; Glucose Urine UA Negative (Negative); Leukocyte Esterase Urine Trace (Negative); Nitrite Urine Negative (Negative); PH 5.5 (5.0-9.0); UMIC TRIGGER UA YES; Urine Blood Negative (Negative); Urine Ketones Negative (Negative); Urine Protein Negative (Neg-Trace)
[2023-12-01 10:45] LABS: Bacteria Urine None Seen (None Seen); Hyaline Casts Urine 0-2 /LPF (0-2); RBC Urine 0-2 /HPF (0-2); Squamous Epithelial Cell Urine 0-2 /HPF (0-2); WBC Urine 0-5 /HPF (0-5)
[2023-12-01 10:51] LABS: Alanine Aminotransferase 10 U/L (0-40); Albumin Level 3.9 g/dL (3.5-5.0); Alkaline Phosphatase 111 U/L (39-117); Anion Gap 9 (12-20); Aspartate Amino Transferase 14 U/L (5-37); Bilirubin Total 1.5 mg/dL (0.0-1.0); Blood Urea Nitrogen 21 mg/dL (9-16); Calcium 8.9 mg/dL (8.4-10.2); Carbon Dioxide 27 mmol/L (22-29); Chloride 109 mmol/L (96-108); Cholesterol 99 mg/dL (<200); Estimated Glomerular Filt Rate > 60; Glucose Random 99 mg/dL (60-115); HDL Cholesterol 44 mg/dL (>40); Iron 94 mcg/dL (45-160); LDL Cholesterol Calculated 43 mg/dL (<100); Percent Iron Saturation 32 % (15-50); Potassium 4.3 mmol/L (3.3-5.1); Sodium 141 mmol/L (135-145); Total Iron Binding Capacity 291 mcg/dL (228-428); Total Protein 6.9 g/dL (6.5-8.0); Triglycerides 64 mg/dL (<150); Unsaturated Iron Binding 197 ug/dL
[2023-12-01 11:09] LABS: Ferritin 56 ng/mL (20-250); Thyroid Stimulating Hormone 1.52 uIU/mL (0.32-4.0); Vitamin D 25-OH Total 54.7 ng/mL (>30)
[2023-12-01 11:22] LABS: Folate 14.2 ng/mL (> or = 4.0); Prostate Specific Antigen Scr 1.59 ng/mL (<0.05-4.0); Vitamin B12 > 2000 pg/mL (200-900)
[2023-12-03 21:54] LABS: Lyme Abs Screen <0.90 index
== END 2023-12-01 09:57 | disposition home or self-care (01) ==
LOC: HO.LAB 09:56
PROVIDERS: PCP Internal Medicine; Visit Provider Internal Medicine
DX: I48.0 Paroxysmal atrial fibrillation (principal); R35.0 Frequency of micturition; E78.00 Pure hypercholesterolemia, unspecified; I25.811 Atherosclerosis of native coronary artery of transplanted heart without angina pectoris; N40.0 Benign prostatic hyperplasia without lower urinary tract symptoms; Z12.5 Encounter for screening for malignant neoplasm of prostate
CPT/HCPCS: 36415; 80053; 80061; 81001; 82306; 82607; 82728; 82746; 83540; 84153; 84439; 84443; 85025; 85045; 86617; 86618

== ENCOUNTER 2023-12-05 10:03 | Outpatient (AMB) | payer MEDICARE, SELFPAY ==
[2023-12-05 10:41] VITALS: BP 142/70; PULSE 73; O2SAT 98; BMI 23.5
--- NOTE | 2023-12-05 10:41 | A.OFFPC_ITS ---
Vital Signs 12/05/23 10:41 Height 6 ft 3 in Weight 188 lb BMI 23.5 BP 142/70 H Blood Pressure Location Lt brachial Position Sitting Pulse 73 Pulse Source Pulse Oximeter Pulse Oximetry (%) 98 Oxygen Delivery Method Room Air Intake Visit Reasons: Multiple Concerns Allergies LUCRECIA Inhibitors Allergy (Intermediate, Verified 12/05/23 10:42) Hyperkalemia Tobacco use date assessed: 08/24/23 Fall risk assessment: No Falls in past year Last assessed Fall Risk: 12/05/23 Dental Screening Dental Screen Date: 08/24/23 HPI Multiple Concerns HPI Details 73-year-old male with coronary artery di sease ascending aorta dilatation hypertension hypercholesterolemia atrial fibrillation asthma coming in for follow-up. Last seen in 09/12/2023. Review of the notes has seen Urology on tamsulosin advised ultrasound of the bladder and has been placed on terazosin. noted BP at that time . 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 1. Little interest or pleasure in doing things: not at all 2. Feeling down, depressed, or hopeless: not at all 3. Trouble falling or staying asleep, or sleeping too much: not at all 4. Feeling tired or having little energy: not at all 5. Poor appetite or overeating: not at all 6. Feeling bad about yourself - or that you are a failure or have let yourself or your family down: not at all 7. Trouble concentrating on things, such as reading the newspaper or watching television: not at all 8. Moving or speaking so slowly that other people could have noticed. Or the opposite - being so fidgety or restless that you have been moving around a lot more than usual: not at all 9. Thoughts that you would be better off or of hurting yourself in some way: not at all Total score: 0 Depression Screening Interpretation: Negative Depression Screening Done: Yes Source: Developed by Drs. Mario Lee, Annabella Toscano, Gage Roberts and colleagues, with an educational malcolm from [employer]. Thrive Questionnaire Date Thrive assessed: 08/24/23 AUDIT C Alcohol Use Questionnaire (AUDIT-C) 1. How often do you have a drink containing alcohol?: 2-3 times a week 2. How many drinks containing alcohol do you have on a typical day when you are drinking?: 1 or 2 3. How often do you have six or more drinks on one occasion?: Never Total Score: 3 NEMO-7 AMB Questionnaire NEMO-7 Date NEMO - 7 assessed: 08/24/23 Source: Developed by Drs. Mario Lee, Annabella Toscano, Gage Roberts and colleagues, with an educational malcolm from [employer]. Physical exam (Primary Care) Vital Signs: Last Vital Signs Pulse 73 12/05/23 10:41 BP 142/70 H 12/05/23 10:41 Pulse Ox 98 12/05/23 10:41 Oxygen Delivery Method Room Air 12/05/23 10:41 BMI result Body Mass Index 23.5 Tobacco/Smoking Status: Tobacco use Status Tobacco use date assessed 08/24/23 12/05/23 10:48 Patient Tobacco Use Status Never used Tobacco 12/05/23 10:48 e-Cigarette/Vaping Use Never Used 12/05/23 10:48 PHQ-9: PHQ-9 Score PHQ-9: Total score 0 12/05/23 10:48 Depression Screening Interpretation: Negative Thrive Assessment: Date of Thrive Assessment Date Thrive assessed 08/24/23 12/05/23 10:48 Const General: alert; No acute distress Eyes Conjunctivae: conjunctivae normal Resp Auscultation: clear to auscultation bilaterally Cardio Rate: regular rate Rhythm: regular rhythm GI Inspection: Yes normal to inspection Extrem General: Yes normal to inspection and No edema Assessment and Plan Assessment & Plan (1) Paroxysmal atrial fibrillation: Comment: Status post radiofrequency ablation in 1993 and cryoablation in 2017 Code(s): I48.0 - Paroxysmal atrial fibrillation Plan: Continue with anticoagulation with Eliquis semiannual renal function test (2) Hypertension: Code(s): I10 - Essential (primary) hypertension Qualifiers: Hypertension type: primary hypertension Qualified Code(s): I10 - Essential (primary) hypertension Plan: Continue with blood pressure medication. Decrease salt intake and exercise on telmisartan 80 mg once a day carvedilol 6.25 mg twice a day (3) Hypercholesterolemia: Code(s): E78.00 - Pure hypercholesterolemia, unspecified Plan: Avoid fried foods, chicken skin, eggs, butter margarine, pastries and meat. Be it pork or beef they have a lot of cholesterol LDL goal of less than 70 and triglyceride of less than 150 on Zetia 10 mg once a day and rosuvastatin 10 mg once a day (4) Ascending aorta dilatation: Comment: 4.4 cm July 2023 Code(s): I77.810 - Thoracic aortic ectasia Plan: Continuing to monitor 08/14/2023 last echocardiogram. (5) Atherosclerotic heart disease: Comment: CT angio August 2022, echocardiogram July 2023 51% Code(s): I25.10 - Atherosclerotic heart disease of [place] coronary artery without angina pectoris Qualifiers: Coronary Disease-Associated Artery/Lesion type: [place] artery [place] vs. transplanted heart: transplanted heart Associated angina: without angina Qualified Code(s): I25.811 - Atherosclerosis of [place] coronary artery of transplanted heart without angina pectoris Plan: Control the cholesterol, weight, blood pressure, presently on anticoagulation (6) Asthma: Code(s): J45.909 - Unspecified asthma, uncomplicated Qualifiers: Asthma severity: mild Asthma persistence: intermittent Asthma complication type: uncomplicated Qualified Code(s): J45.20 - Mild intermittent asthma, uncomplicated Plan: Continue with the inhaler (7) BPH (benign prostatic hyperplasia): Code(s): N40.0 - Benign prostatic hyperplasia without lower urinary tract symptoms (8) Constipation: Code(s): K59.00 - Constipation, unspecified (9) Peripheral neuropathy: Code(s): G62.9 - Polyneuropathy, unspecified Plan: decline nerve test for now - advised avoid crossing legs for the moment and call if worsening Medications: New psyllium husk (Metamucil) 0.8 grams (2 x 0.4 gram) PO BEDTIME PRN 60 caps 6RF co nstipation K59.00 - Constipation, unspecified Changed From telmisartan 80 mg PO DAILY 90 days 90 tabs 1RF I10 - Essential (primary) hypertension To telmisartan 40 mg PO DAILY 90 days 90 tabs 1RF I10 - Essential (primary) hypertension Refilled tamsulosin 0.4 mg PO BEDTIME 90 caps 1RF N40.0 - Benign prostatic hyperplasia without lower urinary tract symptoms Coding Level of Care Code Est Pt Level 4 (20874) Diagnoses Paroxysmal atrial fibrillation I48.0 Primary hypertension I10 Hypertension type: primary hypertension Hypercholesterolemia E78.00 Ascending aorta dilatation I77.810 Atherosclerosis of [place] coronary artery of transplanted heart without angina pectoris I25.811 Coronary Disease-Associated Artery/Lesion type: [place] artery [place] vs. transplanted heart: transplanted heart Associated angina: without angina Mild intermittent asthma without complication J45.20 Asthma severity: mild Asthma persistence: intermittent Asthma complication type: uncomplicated BPH (benign prostatic hyperplasia) N40.0 Constipation K59.00 Peripheral neuropathy G62.9
== END 2023-12-05 11:20 | disposition home or self-care (01) ==
PROVIDERS: PCP Internal Medicine; Visit Provider Internal Medicine
DX: I48.0 Paroxysmal atrial fibrillation (principal); I10 Essential (primary) hypertension; E78.00 Pure hypercholesterolemia, unspecified; I77.810 Thoracic aortic ectasia; I25.811 Atherosclerosis of native coronary artery of transplanted heart without angina pectoris; J45.20 Mild intermittent asthma, uncomplicated; N40.0 Benign prostatic hyperplasia without lower urinary tract symptoms; K59.00 Constipation, unspecified; G62.9 Polyneuropathy, unspecified
CPT/HCPCS: 99214

== ENCOUNTER 2023-12-17 10:48 | Outpatient (REF) | payer MEDICARE, SELFPAY ==
--- NOTE | ~2023-12-17 | US_ITS ---
EXAMINATION: US PELVIS LIMITED (BLADDER) CLINICAL INFORMATION: Poor urinary stream. COMPARISON: Ultrasound bladder 09/12/2023. TECHNIQUE: Real-time imaging of the bladder. FINDINGS: BLADDER: The bladder is well distended. Minimal irregularity of the bladder wall. Bilateral ureteral jets are demonstrated. Prevoid bladder volume is 463 mL. Postvoid bladder volume is 315 mL. ADDITIONAL FINDINGS: Prostate volume 23.4 mL. Coarse calcifications within the prostate. Please note that previous prostate gland volume reported as 41 mL and differences in prostate measurements could be attributable to difficulty in obtaining precise measurements due to limited visualization. US/US bladder IMPRESSION: 1. Minimal irregularity of the bladder wall. 2. Postvoid bladder volume is 315 mL. 3. Prostate volume 23.4 mL. Coarse calcifications within the prostate. Please note that previous prostate gland volume reported as 41 mL and differences in prostate measurements could be attributable to difficulty in obtaining precise measurements due to limited visualization.
== END 2023-12-17 10:49 | disposition home or self-care (01) ==
LOC: HO.US 10:48
PROVIDERS: PCP Internal Medicine; Visit Provider Urology
DX: R39.12 Poor urinary stream (principal); N40.0 Benign prostatic hyperplasia without lower urinary tract symptoms
CPT/HCPCS: 76857

== ENCOUNTER 2023-12-28 12:45 | Outpatient (AMB) | payer MEDICARE, SELFPAY ==
--- NOTE | 2023-12-28 13:11 | A.OFFVIS_ITS ---
Intake Visit Reasons: cysto/US(set) Intake Note: Patient is present for Cystoscopy/US Urology Medication:TERAZOSIN,TAMSULOSIN Antibiotic Allergy:NONE Blood Thinner:APIXABAN Lot: Exp: Supervisor Brine Required: No Allergies LUCRECIA Inhibitors Allergy (Intermediate, Verified 12/28/23 13:12) Hyperkalemia Medication List - Last Reconciled 12/28/23 by Arcenio Garcia MD albuterol sulfate 90 mcg/actuation (Ventolin HFA) 2 puffs inhalation Q6H PRN apixaban (Eliquis) 5 mg PO BID 90 days carvedilol (Coreg) 6.25 mg PO Q12H 90 days cholecalciferol (vitamin D3) 250 mcg PO DAILY cyanocobalamin (vitamin B-12) 1,000 mcg PO DAILY doxycycline hyclate 200 mg (2 x 100 mg) PO ONCE ezetimibe (Zetia) 10 mg PO DAILY glucosamine HCl 500 mg PO DAILY lactobacillus combination no.4 (Probiotic) 3,000 mmu cells PO DAILY magnesium oxide 500 mg PO DAILY 90 days multivitamin 1 tab PO DAILY omega-3 fatty acids 1,000 mg PO BID polyvinyl alcohol 1.4% (Artificial Tears (polyvinyl alcohol)) 1 drp ophthalmic (eye) BID-QID PRN psyllium husk (Metamucil) 0.8 grams (2 x 0.4 gram) PO BEDTIME PRN tamsulosin 0.4 mg PO BEDTIME terazosin 10 mg PO BEDTIME 30 days trimethoprim 100 mg PO DAILY 90 days ursodiol (BASIA Forte) 500 mg PO DAILY HPI Comments Details: Lio is a pleasant male. He is a patient of Dr. Yusuf. He has seen for the following urologic conditions - lower urinary tract symptoms Follow-up Trial terazosin Plan cystoscopy - glomerulation. Subclinical interstitial cystitis versus chronic cystitis. - treat 3 months trimethoprim Lower urinary tract symptoms Progressive Primarily weakness of stream with difficulty emptying Nocturia x2 Current therapy terazosin PFSH Medical History (Updated 12/28/23 @ 13:37 by Arcenio Garcia MD) Left bundle branch block Paroxysmal atrial fibrillation Chronic prostatitis Surgical History (Updated 08/24/23 @ 14:14 by Shira Yusuf MD) History of cataract surgery History of lumbar surgery Social History (Updated 08/24/23 @ 14:05 by Shira Yusuf MD) Housing: House Alcohol intake: current Comment: 1-2 glasses of wine QD Patient Tobacco Use Status: Never used Tobacco e-Cigarette/Vaping Use: Never Used service: No 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: No Hearing needs: No Vision needs: No Review of Systems Const Denies chills and Denies fever(s) Card Reports no additional complaints and Denies syncope Resp Denies cough GI Denies abdominal pain and Denies heartburn Reports as per HPI and Denies change in libido Neuro Denies syncope Psych Denies change in libido Endo Denies change in libido Physical Exam Const General: cooperative, healthy appearing, comfortable and no acute distress Orientation/consciousness: patient oriented x3 HEENT Face and sinus: Yes normal facial exam Mouth: moist mucous membranes Neck Neck: Yes normal visual inspection, Yes full ROM and Yes trachea midline Chest Chest palpation & inspection: normal inspection of the chest Resp Effort & Inspection: normal respiratory effort, able to speak in complete sentences and no respiratory distress GI Inspection: Yes normal to inspection Back/Spine/Pelvis Cervical Spine: normal cervical lordosis Thoracic/Lumbar Spine: thoracic and lumbar spine normal to inspection Skin General skin exam: no rashes or lesions noted Neuro General: patient oriented x3, gait normal, tone normal and moves all extremities Extrem General: Yes normal to inspection and Yes capillary refill normal Office Procedures Cystoscopy Consent Discussed risk and benefit or proposed procedure with the patient. Information consent for procedure given to the patient. Discussed technical aspects, risks, benefits and alternatives in full. Addressed all of the patient's questions and concerns regarding the procedure. The patient demonstrated knowledge and understanding. They wish to proceed with this procedure. Preparation The patient was prepped in the usual manner. A manager change was present and in the room. Genitalia was prepped with betadine solution in a sterile manner. Lidocaine Jelly 2% was placed into the urethra and 16Fr flexible Olympus cystoscope was inserted into the meatus after adequate lubrication. Procedure Cystoscopy performed using a disposable appsFreedomvue digital 16 [place] cystoscope. Meatus circumcised Urethra anterior and posterior urethra normal Prostatic Urethra unremarkable with a few submucosal cysts Bladder examination with retroflexion of cystoscope Bladder Orifices normal shape and position - trigone irritation Bladder Capacity - Trabeculations grade 1 Cellule Formation - Diverticulum Formation - Mucosal Erythema glomerulation Bladder Tumor - [id number] DISPOSABLE SCOPE URO-G FLEXIBLE SCOPE Procedure code (CPT) selection complete Office Meds lidocaine HCl 2 % mucosal jelly in applicator Performing Provider: Arcenio Garcia MD Performing Location: [facility] [place] [facility] Administered by: Daniel Meredith LPN on 12/28/23 13:21 Dose Route Admin Location Dispensed Lot Number Expiration Date [facility] Signal Operator Linguist 10 mL intra-urethral 10 mL nitrofurantoin monohydrate/macrocrystals 100 mg capsule Performing Provider: Arcenio Garcia MD Performing Location: [facility] [place] [facility] Administered by: Daniel Meredith LPN on 12/28/23 13:21 Dose Route Admin Location Dispensed Lot Number Expiration Date [place] Signal Operator Linguist 100 mg PO 1 cap naproxen 500 mg tablet Performing Provider: Arcenio Garcia MD Performing Location: [facility] [place] [facility] Administered by: Daniel Meredith LPN on 12/28/23 13:21 Dose Route Admin Location Dispensed Lot Number Expiration Date [place] Signal Operator Linguist 500 mg PO 1 tab Results AMB Urinalysis, Automated UA Leukoctes 15 Willa/uL Last Edit by ANDREZ Gray on 12/28/23 13:22 UA Nitrite Negative Last Edit by ANDREZ Gray on 12/28/23 13:22 UA Urobilinogen 0.2 mg/dL Last Edit by ANDREZ Gray on 12/28/23 13:2 2 UA Protein 15 mg/dL Last Edit by ANDREZ Gray on 12/28/23 13:22 UA pH 6.0 Last Edit by ANDREZ Gray on 12/28/23 13:22 UA Blood 0 Dion/uL Last Edit by ANDREZ Gray on 12/28/23 13:22 UA Specific [place] 1.020 Last Edit by ANDREZ Gray on 12/28/23 13: 22 UA Ketone Negative Last Edit by ANDREZ Gray on 12/28/23 13:22 UA Bilirubin 0 mg/dL Last Edit by ANDREZ Gray on 12/28/23 13:22 UA Glucose 0 mg/dL Last Edit by ANDREZ Gray on 12/28/23 13:22 Results Reviewed Results Reviewed: Laboratory Last Values Urine pH (Auto) 6.0 12/28/23 13:18 Specific [place] (Auto) 1.020 12/28/23 13:18 Urine Protein (Auto) 15 mg/dL 12/28/23 13:18 Glucose (UA)(Auto) 0 mg/dL 12/28/23 13:18 Urine Ketones (Auto) Negative 12/28/23 13:18 Urine Blood (Auto) 0 Dion/uL 12/28/23 13:18 Urine Nitrite (Auto) Negative 12/28/23 13:18 Urine Bilirubin (Auto) 0 mg/dL 12/28/23 13:18 Urine Urobilinogen (Auto) 0.2 mg/dL 12/28/23 13:18 Leukocyte Esterase (Auto) 15 Willa/uL 12/28/23 13:18 Assessment & Plan Assessment & Plan (1) Cystitis: Code(s): N30.90 - Cystitis, unspecified without hematuria Category: Medical (2) BPH (benign prostatic hyperplasia): Code(s): N40.0 - Benign prostatic hyperplasia without lower urinary tract symptoms Category: Medical Plan Three-month follow-up UA Three-month trimethoprim Orders: Orders AMB Cystoscopy Today N40.0 - Benign prostatic hyperplasia without lower urinary tract symptoms AMB Urinalysis Automated Today Z13.9 - Encounter for screening, unspecified Medications: New trimethoprim 100 mg PO DAILY 90 tabs 0RF 90 days N30.90 - Cystitis, unspecified without hematuria, R33.9 - Retention of urine, unspecified Patient Instructions: Imaging studies, laboratory and physical exam results were discussed and reviewed in detail. No major barriers to patient understanding were identified. An opportunity to ask questions regarding the treatment plan was provided. All questions were answered. The patient expressed understanding and agreement with the above treatment plan. The patient is aware they should contact our office by phone for worsening of their current condition or the appearance of new urologic symptoms. Compliance is encouraged with any medications and followup testing that is ordered. It is a privilege to participate in the urologic care of your patient. If you have any questions or concerns regarding treatment for the above conditions, or other urologic issues, please do not hesitate to contact me. The office telephone contact is [phone]. This note is constructed using voice recognition software. While every effort has been made to ensure accuracy director search marketing strategies errors may have been included. Yours sincerely, Dr Arcenio Garcia MD, [facility] - Urology Providers of Expert, Compassionate Care for the Genitourinary System Coding Level of Care Code Est Pt Level 4 (73362) Diagnoses Cystitis N30.90 BPH (benign prostatic hyperplasia) N40.0 CPT Codes Cystoscopy - CPT: [id number] ([id number])
== END 2023-12-28 13:46 | disposition home or self-care (01) ==
PROVIDERS: PCP Internal Medicine; Visit Provider Urology
DX: N30.90 Cystitis, unspecified without hematuria (principal); N40.0 Benign prostatic hyperplasia without lower urinary tract symptoms; Z13.9 Encounter for screening, unspecified
CPT/HCPCS: 52000; 99214

== ENCOUNTER → 2023-12-28 12:45 | Outpatient (BNVA) | payer MEDICARE, SELFPAY | PROVIDERS: PCP Internal Medicine; Visit Provider Urology | DX: N30.90 Cystitis, unspecified without hematuria (principal); N40.1 Benign prostatic hyperplasia with lower urinary tract symptoms; R35.1 Nocturia; R39.12 Poor urinary stream | CPT/HCPCS: 52000; 81003; 99212 ==

== ENCOUNTER 2024-01-15 09:06 | Outpatient (AMB) | payer MEDICARE, SELFPAY ==
[2024-01-15 09:20] VITALS: BP 120/72; PULSE 68; BMI 23.1
--- NOTE | 2024-01-15 09:20 | A.OFFVIS_ITS ---
Vital Signs 01/15/24 09:20 Height 6 ft 3 in Weight 185 lb 3.013 oz BMI 23.1 BP 120/72 Blood Pressure Location Lt brachial Position Sitting Pulse 68 Intake Visit Reasons: 6 mth f/up s/p echo Intake Note: 6 month follow-up after echo feeling good Training Intern Required: No Allergies LUCRECIA Inhibitors Allergy (Intermediate, Verified 12/28/23 13:12) Hyperkalemia Medication List - Last Reconciled 01/15/24 by Waqas De Los Santos MD albuterol sulfate 90 mcg/actuation (Ventolin HFA) 2 puffs inhalation Q6H PRN apixaban (Eliquis) 5 mg PO BID 90 days carvedilol (Coreg) 6.25 mg PO Q12H 90 days cholecalciferol (vitamin D3) 250 mcg PO DAILY cyanocobalamin (vitamin B-12) 1,000 mcg PO DAILY ezetimibe (Zetia) 10 mg PO DAILY glucosamine HCl 500 mg PO DAILY lactobacillus combination no.4 (Probiotic) 3,000 mmu cells PO DAILY magnesium oxide 500 mg PO DAILY 90 days multivitamin 1 tab PO DAILY omega-3 fatty acids 1,000 mg PO BID polyvinyl alcohol 1.4% (Artificial Tears (polyvinyl alcohol)) 1 drp ophthalmic (eye) BID-QID PRN psyllium husk (Metamucil) 0.8 grams (2 x 0.4 gram) PO BEDTIME PRN tamsulosin 0.4 mg PO BEDTIME terazosin 10 mg PO BEDTIME 30 days trimethoprim 100 mg PO DAILY 90 days ursodiol (BASIA Forte) 500 mg PO DAILY HPI Comments Details: Lio comes for follow-up. Patient says lightheaded and syncopal episodes have dissipated since stopping his angiotensin receptor teresa. His blood pressure at home have been generally well controlled with most of the blood p ressure readings less than systolic 130. 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 Denies any prolonged palpitation irregular heartbeat. He says that his stools have change consistency since starting new medications but overall does not have much diarrhea. Has had GI appointment which is currently pending. No bleeding episodes or neurologic events. 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: No Hearing needs: No Vision needs: No Review of Systems Const Denies chills, Denies fatigue, Denies fever(s), Denies frequent falls, Denies weakness, Denies weight gain and Denies weight loss ENT Denies dizziness Card Denies chest pain, Denies leg edema, Denies lightheadedness, Denies palpitations, Denies dyspnea, Denies dyspnea on exertion, Denies orthopnea and Denies other (loss of consciousness) Resp Denies cough, Denies dyspnea and Denies dyspnea on exertion GI Denies hematochezia and Denies change in stool character Musc Denies abnormal gait, Denies muscle weakness, Denies numbness, Denies radiating pain into limb and Denies tingling Neuro Denies Abnormal speech present, Denies abnormal gait, Denies dizziness, Denies frequent falls, Denies numbness, Denies tingling and Denies weakness Endo Denies fatigue and Denies palpitations Physical Exam Vital Signs: Last Vital Signs Pulse 68 01/15/24 09:20 BP 120/72 01/15/24 09:20 BMI result Body Mass Index 23.1 Const General: cooperative, comfortable, no acute distress, alert, awake and Physically active Nutritional Appearance: thin Orientation/consciousness: patient oriented x3 Limitations: no limitations HEENT Head: Yes normocephalic and Yes atraumatic Neck Neck: Yes trachea midline, Yes supple and Yes no JVD Resp Effort & Inspection: normal respiratory effort Auscultation: clear to auscultation bilaterally Cardio Jugular venous distension: no JVD Palpation: normal PMI Rate: regular rate Rhythm: regular rhythm Heart sounds: S1 normal heart sound present, S2 normal heart sound present, no click, no gallops, no murmurs and no rubs GI Auscultation: normal bowel sounds Skin General skin exam: no rashes or lesions noted Neuro General: patient oriented x3 and no focal motor deficits Speech: No Abnormal speech present Extrem General: Yes no clubbing, cyanosis or edema Psych Appearance: grossly normal Assessment & Plan Assessment & Plan (1) Paroxysmal atrial fibrillation: Comment: Status post radiofrequency ablation in 1993 and cryoablation in 2016 Code(s): I48.0 - Paroxysmal atrial fibrillation Category: Medical Plan: Paroxysmal atrial fibrillation without any obvious clinical recurrence at this point time. Continue current regimen. Continue carvedilol therapy. No indication for antiarrhythmic drug therapy. Continue full oral anticoagulation, currently on Eliquis 5 mg b.i.d.. CHADSVASc score of at least 3. Semi annual renal function test should be pursued, being pursue through your office (2) Left bundle branch block: Code(s): I44.7 - Left bundle-branch block, unspecified Category: Medical Plan: Left bundle-branch block which is stable. No interventions required. Follow-up EKGs annually. Follow-up echocardiogram is indicated although he will probably require annual echocardiogram for his ascending thoracic aneurysm. No interve ntions required per se for left bundle-branch block. Last LVEF of 51% (3) Hypertension: Code(s): I10 - Essential (primary) hypertension Category: Medical Qualifiers: Hypertension type: primary hypertension Qualified Code(s): I10 - Essential (primary) hypertension Plan: Labile blood pressure with significant hypotension with angiotensin receptor teresa which has been discontinued. Since then he has been monitoring his blood pressure at home and has been really well controlled overall. Advised to continue monitor blood pressure at home. Stress mitigation strategies pursued. Avoidance of salt loading was discussed. (4) Atherosclerotic heart disease: Comment: CT angio August 2022, echocardiogram July 2023 51% Code(s): I25.10 - Atherosclerotic heart disease of [place] coronary artery without angina pectoris Category: Medical Qualifiers: Coronary Disease-Associated Artery/Lesion type: [place] artery [place] vs. transplanted heart: transplanted heart Associated angina: without angina Qualified Code(s): I25.811 - Atherosclerosis of [place] coronary artery of transplanted heart without angina pectoris Plan: CAD with nonobstructive coronary artery disease. Continue aggressive vascular risk factor modification. Currently blood pressure is well optimized. Continue aggressive lipid modification. Should be on statin therapy as well. Target goal LDL less than 70 mg/dL. (5) Ascending aorta dilatation: Comment: 4.4 cm July 2023 Code(s): I77.810 - Thoracic aortic ectasia Category: Medical Plan: Ascending aortic aneurysm which is at 4.4 cm. Will continue monitor annually by echocardiogram. Continue aggressive blood pressure control. Advised to avoid sudden strenuous isometric exercise. Follow up in the clinic in 1 year's time, sooner p.r.n.. Thank you for allowing me to partake in his care Coding Level of Care Code Est Pt Level 4 (18306) Diagnoses Paroxysmal atrial fibrillation I48.0 Left bundle branch block I44.7 Primary hypertension I10 Hypertension type: primary hypertension Atherosclerosis of [place] coronary artery of transplanted heart without angina pectoris I25.811 Coronary Disease-Associated Artery/Lesion type: [place] artery [place] vs. transplanted heart: transplanted heart Associated angina: without angina Ascending aorta dilatation I77.810
== END 2024-01-15 10:11 | disposition home or self-care (01) ==
PROVIDERS: PCP Internal Medicine; Visit Provider Internal Medicine Cardiovascular Disease
DX: I48.0 Paroxysmal atrial fibrillation (principal); I44.7 Left bundle-branch block, unspecified; I10 Essential (primary) hypertension; I25.811 Atherosclerosis of native coronary artery of transplanted heart without angina pectoris; I77.810 Thoracic aortic ectasia
CPT/HCPCS: 99214

== ENCOUNTER → 2024-01-15 09:06 | Outpatient (BNVA) | payer MEDICARE, SELFPAY | PROVIDERS: PCP Internal Medicine; Visit Provider Internal Medicine Cardiovascular Disease | DX: I48.0 Paroxysmal atrial fibrillation (principal); I44.7 Left bundle-branch block, unspecified; I10 Essential (primary) hypertension; I25.811 Atherosclerosis of native coronary artery of transplanted heart without angina pectoris; I77.810 Thoracic aortic ectasia; Z79.01 Long term (current) use of anticoagulants; Z79.899 Other long term (current) drug therapy | CPT/HCPCS: 99212 ==

== ENCOUNTER 2024-02-22 10:49 | Outpatient (AMB) | payer MEDICARE, SELFPAY ==
[2024-02-22 11:07] VITALS: BP 140/80; PULSE 86; O2SAT 97; BMI 22.9
--- NOTE | 2024-02-22 11:07 | MHC.PC.OV ---
Vital Signs 02/22/24 11:07 Height 6 ft 3 in Weight 183 lb 2 oz BMI 22.9 BP 140/80 H Blood Pressure Location Lt brachial Position Sitting Pulse 86 Pulse Source Pulse Oximeter Pulse Oximetry (%) 97 Oxygen Delivery Method Room Air Intake Visit Reasons: Hypertension Intake Note: Patient is here to follow up on HTN. Emergency Room Technician Required: No Supervisor Garment Manufacturing: Not Required per policy Accompanied by: Self / Same As Patient Allergies LUCRECIA Inhibitors Allergy (Intermediate, Verified 02/22/24 11:07) Hyperkalemia Tobacco use date assessed: 02/22/24 Fall risk assessment: No Falls in past year Last assessed Fall Risk: 02/22/24 Dental Screening Dental Screen Date: 08/24/23 HPI Hypertension HPI Details 74-year-old male with atrial fibrillation hypertension hypercholesterolemia ascending aortic dilatation atherosclerotic heart disease asthma BPH and peripheral neuropathy coming in for follow-up. Patient was last seen in November 2023. Review of the notes was seen by Cardiology in December lightheadedness has stopped after stopping the angiotensin receptor teresa.. Atrial fibrillation status post ablation 1993 and cryoablation 2016. Continuing with carvedilol and anticoagulation with Eliquis 5 mg twice a day twice a day year blood work. EF 51% target goal for LDL is 70 with ascending aorta dilatation 08/14/2023 is 4.4 cm. Patient also follows up with urology placed on terazosin subclinical interstitial cystitis versus chronic cystitis. Treatment of trimethoprim. 100 mg once a day. 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 Mario Lee, Annabella Toscano, Gage Roberts and colleagues, with an educational malcolm from [employer]. Physical exam (Primary Care) Vital Signs: Last Vital Signs Pulse 86 02/22/24 11:07 BP 140/80 H 02/22/24 11:07 Pulse Ox 97 02/22/24 11:07 Oxygen Delivery Method Room Air 02/22/24 11:07 BMI result Body Mass Index 22.9 Tobacco/Smoking Status: Tobacco use Status Tobacco use date assessed 02/22/24 02/22/24 11:08 Patient Tobacco Use Status Never used Tobacco 02/22/24 11:08 e-Cigarette/Vaping Use Never Used 02/22/24 11:08 Thrive Assessment: Date of Thrive Assessment Date Thrive assessed 08/24/23 02/22/24 11:08 Const General: alert; No acute distress Eyes Conjunctivae: conjunctivae normal Resp Auscultation: clear to auscultation bilaterally Cardio Rate: regular rate Rhythm: regular rhythm GI Inspection: Yes normal to inspection Extrem General: Yes normal to inspection and No edema Assessment and Plan Assessment & Plan (1) BPH (benign prostatic hyperplasia): Code(s): N40.0 - Benign prostatic hyperplasia without lower urinary tract symptoms Plan: Continue to follow-up with urology placed on tamsulosin and terazosin. Question of chronic cystitis placed on trimethoprim 100 mg q.day for 3 months (2) Paroxysmal atrial fibrillation: Comment: Status post radiofrequency ablation in 1993 and cryoablation in 2017 Code(s): I48.0 - Paroxysmal atrial fibrillation Plan: Continuing with anticoagulation with Eliquis and carvedilol (3) Hypercholesterolemia: Code(s): E78.00 - Pure hypercholesterolemia, unspecified Plan: Avoid fried foods, chicken skin, eggs, butter margarine, pastries and meat. Be it pork or beef they have a lot of cholesterol LDL goal of less than 70 and triglyceride of less than 150 on Zetia? (4) Hypertension: Code(s): I10 - Essential (primary) hypertension Qualifiers: Hypertension type: primary hypertension Qualified Code(s): I10 - Essential (primary) hypertension Plan: Continue with blood pressure medication. Decrease salt intake and exercise continue with carvedilol. (5) Ascending aorta dilatation: Comment: 4.4 cm July 2023 Code(s): I77.810 - Thoracic aortic ectasia Plan: Continuing to monitor. 08/14/2024 next echocardiogram. (6) Atherosclerotic heart disease: Comment: CT angio August 2022, echocardiogram July 2023 51% Code(s): I25.10 - Atherosclerotic heart disease of [place] coronary artery without angina pectoris Qualifiers: Coronary Disease-Associated Artery/Lesion type: [place] artery [place] vs. transplanted heart: transplanted heart Associated angina: without angina Qualified Code(s): I25.811 - Atherosclerosis of [place] coronary artery of transplanted heart without angina pectoris Plan: Control the cholesterol, weight, blood pressure, on anticoagulation (7) Degenerative disc disease, cervical: Code(s): M50.30 - Other cervical disc degeneration, unspecified cervical region (8) Degenerative disc disease, thoracic: Code(s): M51.34 - Other intervertebral disc degeneration, thoracic region (9) Vision changes: Code(s): H53.9 - Unspecified visual disturbance Orders: Orders Vitamin B12 and Folate Today I48.0 - Paroxysmal atrial fibrillation Magnesium Today I48.0 - Paroxysmal atrial fibrillation Complete Blood Count Auto Diff Today I48.0 - Paroxysmal atrial fibrillation Comprehensive Met. Panel Today I48.0 - Paroxysmal atrial fibrillation B Type Natriuretic Peptide Today I48.0 - Paroxysmal atrial fibrillation Free T4 (Free Thyroxine) Today I48.0 - Paroxysmal atrial fibrillation Thyroid Stimulating Hormone Today I48.0 - Paroxysmal atrial fibrillation Lipid Panel Today E78.00 - Pure hypercholesterolemia, unspecified, I48.0 - Paroxysmal atrial fibrillation Referrals Ophthalmology Referral H53.9 - Unspecified visual disturbance Physiatry Referral M50.30 - Other cervical disc degeneration, unspecified cervical region, M51.34 - Other intervertebral disc degeneration, thoracic region, M51.36 - Other intervertebral disc degeneration, lumbar region Coding Level of Care Code Est Pt Level 4 (93000) Diagnoses BPH (benign prostatic hyperplasia) N40.0 Paroxysmal atrial fibrillation I48.0 Hypercholesterolemia E78.00 Primary hypertension I10 Hypertension type: primary hypertension Ascending aorta dilatation I77.810 Atherosclerosis of [place] coronary artery of transplanted heart without angina pectoris I25.811 Coronary Disease-Associated Artery/Lesion type: [place] artery [place] vs. transplanted heart: transplanted heart Associated angina: without angina Degenerative disc disease, cervical M50.30 Degenerative disc disease, thoracic M51.34 Vision changes H53.9
== END 2024-02-22 11:59 | disposition home or self-care (01) ==
PROVIDERS: PCP Internal Medicine; Visit Provider Internal Medicine
DX: N40.0 Benign prostatic hyperplasia without lower urinary tract symptoms (principal); I48.0 Paroxysmal atrial fibrillation; I77.810 Thoracic aortic ectasia; E78.00 Pure hypercholesterolemia, unspecified; I10 Essential (primary) hypertension; I25.811 Atherosclerosis of native coronary artery of transplanted heart without angina pectoris; M50.30 Other cervical disc degeneration, unspecified cervical region; M51.34 Other intervertebral disc degeneration, thoracic region; H53.9 Unspecified visual disturbance
CPT/HCPCS: 99214

== ENCOUNTER 2024-03-07 13:42 | Outpatient (AMB) | payer MEDICARE, SELFPAY ==
--- NOTE | 2024-03-07 13:48 | A.OFFVIS_ITS ---
Vital Signs 03/07/24 14:01 Height 6 ft 3 in Weight 182 lb 15.739 oz BMI 22.9 BP 114/73 Blood Pressure Location Lt brachial Position Sitting Pulse 69 Intake Visit Reasons: colonoscopy screening Intake Note: Lio presents in the office as a colonoscopy screening. CC: No concerns that he can think of at this time. He states that he has had two ablation procedures. Dr Yusuf switched up his meds and he states his stools are more puree than hard. HE states that is just an observation. Equal Opportunity Director Required: No Allergies LUCRECIA Inhibitors Allergy (Intermediate, Verified 03/07/24 14:01) Hyperkalemia HPI Comments Details: 74 y.o M who is here for surveillance colo. Pt himself without GI issues. No diarrhea or bleeding. Younger brother diagnosed with colon cancer in late 50s. Pt last colo was in 2009. 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 Returned to hometown last month. sig PMH includes pAFib - on anticoagulation. Sees with Dr De Los Santos. Preserved EF. Also has 4.4cm AAA which is being surveilled qyearly. Labs reviewed - bicytopenia noted. Normocytic anemia with normal retic count and normal ferritin which argues against anemia of blood loss. 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: No Hearing needs: No Vision needs: No Review of Systems Const All systems reviewed & are unremarkable except as noted in HPI and below Physical Exam Vital Signs: Last Vital Signs Pulse 69 03/07/24 14:01 BP 114/73 03/07/24 14:01 BMI result Body Mass Index 22.9 No apparent distress Nonicteric Abdomen soft, nondistended Alert and oriented x3, normal gait Assessment & Plan Assessment & Plan (1) Anemia: Code(s): D64.9 - Anemia, unspecified Category: Medical (2) Family history of colon cancer: Code(s): Z80.0 - Family history of malignant neoplasm of digestive organs Category: Medical Plan 1. Fam hx of crc Will set him up for a colo. Pt aware that he is at high risk due to fam hx. Plan: - Requests Sutab. - Instructions reviewed - Aware to hold eliquis x2 days 2. Anemia Normocytic anemia with normal retic count and normal ferritin which argues against anemia of blood loss. No B12 and folate deficiency either. Plan: - Referral to heme made. Follow up after colo. Orders: Referrals Hematology & Oncology Referral D64.9 - Anemia, unspecified Medications: New sod sulf-pot chloride-mag sulf 1.479-0.188- 0.225 gram (Sutab) PO PER PKG DIR 1 kit 0RF Coding Level of Care Code New Pt Level 4 (67275) Diagnoses Anemia D64.9 Family history of colon cancer Z80.0
[2024-03-07 14:01] VITALS: BP 114/73; PULSE 69; BMI 22.9
== END 2024-03-07 14:53 | disposition home or self-care (01) ==
PROVIDERS: PCP Internal Medicine; Visit Provider Internal Medicine
DX: D64.9 Anemia, unspecified (principal); Z80.0 Family history of malignant neoplasm of digestive organs
CPT/HCPCS: 99204

== ENCOUNTER → 2024-03-07 13:42 | Outpatient (BNVA) | payer MEDICARE, SELFPAY | PROVIDERS: PCP Internal Medicine; Visit Provider Internal Medicine | DX: Z01.818 Encounter for other preprocedural examination (principal); D64.9 Anemia, unspecified; Z80.0 Family history of malignant neoplasm of digestive organs | CPT/HCPCS: 99202 ==

== ENCOUNTER 2024-04-02 10:22 | Outpatient (AMB) | payer MEDICARE, SELFPAY ==
--- NOTE | 2024-04-02 10:39 | A.OFFVIS_ITS ---
Intake Visit Reasons: 3m/UA Intake Note: Patient is Present for Follow Up Urinalysis Check Urology Medication: Terazosin, Tamsulosin Antibiotic Allergies:None Blood Thinners: Eliquis Recent PSA: 12/01/2023 1.59 Notereader Required: No Accompanied by: Self / Same As Patient Allergies LUCRECIA Inhibitors Allergy (Intermediate, Verified 03/07/24 14:01) Hyperkalemia HPI Comments Details: Lio is a pleasant male. He is a patient of Dr. Yusuf. He has seen for the following urologic conditions - lower urinary tract symptoms Three-month follow-up Completed three-month of trimethoprim for subclinical interstitial cystitis versus chronic cystitis UA today trace leukocytes Has persistent wings of stream Will give another attempt at terazosin 10 mg Would benefit from possible procedure on prostate Office cystoscopy 01/15 - glomerulation. Subclinical interstitial cystitis versus chronic cystitis. 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: No Hearing needs: No Vision needs: No Review of Systems Const Denies chills and Denies fever(s) Card Reports no additional complaints and Denies syncope Resp Denies cough GI Denies abdominal pain and Denies heartburn Reports as per HPI and Denies change in libido Neuro Denies syncope Psych Denies change in libido Endo Denies change in libido Physical Exam Const General: cooperative, healthy appearing, comfortable and no acute distress Orientation/consciousness: patient oriented x3 HEENT Face and sinus: Yes normal facial exam Mouth: moist mucous membranes Neck Neck: Yes normal visual inspection, Yes full ROM and Yes trachea midline Chest Chest palpation & inspection: normal inspection of the chest Resp Effort & Inspection: normal respiratory effort, able to speak in complete sentences and no respiratory distress GI Inspection: Yes normal to inspection Back/Spine/Pelvis Cervical Spine: normal cervical lordosis Thoracic/Lumbar Spine: thoracic and lumbar spine normal to inspection Skin General skin exam: no rashes or lesions noted Neuro General: patient oriented x3, gait normal, tone normal and moves all extremities Extrem General: Yes normal to inspection and Yes capillary refill normal Results AMB Urinalysis, Automated UA Leukoctes 70 Willa/uL Last Edit by Madai Newton [facility] on 04/02/24 10:49 UA Nitrite Negative Last Edit by Madai Newton [facility] on 04/02/24 10:49 UA Urobilinogen 0.2 mg/dL Last Edit by Madai Newton [facility] on 04/02/24 10:4 9 UA Protein 15 mg/dL Last Edit by Madai Newton [facility] on 04/02/24 10:49 UA pH 6.0 Last Edit by Madai Newton [facility] on 04/02/24 10:49 UA Blood 0 Dion/uL Last Edit by Madai Newton [facility] on 04/02/24 10:49 UA Specific [place] 1.020 Last Edit by Madai Newton [facility] on 04/02/24 10: 49 UA Ketone Negative Last Edit by Madai Newton [facility] on 04/02/24 10:49 UA Bilirubin 0 mg/dL Last Edit by Madai Newton [facility] on 04/02/24 10:49 UA Glucose 0 mg/dL Last Edit by Madai Newton [facility] on 04/02/24 10:49 Results Reviewed Results Reviewed: Laboratory Last Values Urine pH (Auto) 6.0 04/02/24 10:42 Specific [place] (Auto) 1.020 04/02/24 10:42 Urine Protein (Auto) 15 mg/dL 04/02/24 10:42 Glucose (UA)(Auto) 0 mg/dL 04/02/24 10:42 Urine Ketones (Auto) Negative 04/02/24 10:42 Urine Blood (Auto) 0 Dion/uL 04/02/24 10:42 Urine Nitrite (Auto) Negative 04/02/24 10:42 Urine Bilirubin (Auto) 0 mg/dL 04/02/24 10:42 Urine Urobilinogen (Auto) 0.2 mg/dL 04/02/24 10:42 Leukocyte Esterase (Auto) 70 Willa/uL 04/02/24 10:42 Assessment & Plan Assessment & Plan (1) BPH (benign prostatic hyperplasia): Code(s): N40.0 - Benign prostatic hyperplasia without lower urinary tract symptoms Category: Medical (2) Erectile dysfunction: Code(s): N52.9 - Male erectile dysfunction, unspecified Category: Medical (3) Weak urinary stream: Code(s): R39.12 - Poor urinary stream Category: Medical Plan Retrial terazosin Three-month follow-up Orders: Orders AMB Urinalysis Automated Today Z13.9 - Encounter for screening, unspecified Medications: Discontinued tamsulosin Discontinued Reason: Patient Completed Course 0.4 mg PO BEDTIME 90 caps 1RF N40.0 - Benign prostatic hyperplasia without lower urinary tract symptoms Patient Instructions: Imaging studies, laboratory and physical exam results were discussed and reviewed in detail. No major barriers to patient understanding were identified. An opportunity to ask questions regarding the treatment plan was provided. All questions were answered. The patient expressed understanding and agreement with the above treatment plan. The patient is aware they should contact our office by phone for worsening of their current condition or the appearance of new urologic symptoms. Compliance is encouraged with any medications and followup testing that is ordered. It is a privilege to participate in the urologic care of your patient. If you have any questions or concerns regarding treatment for the above conditions, or other urologic issues, please do not hesitate to contact me. The office telephone contact is [phone]. This note is constructed using voice recognition software. While every effort has been made to ensure accuracy quiller tender errors may have been included. Yours sincerely, Dr Arcenio Garcia MD, [facility] - Urology Providers of Expert, Compassionate Care for the Genitourinary System Coding Level of Care Code Est Pt Level 3 (98081) Diagnoses BPH (benign prostatic hyperplasia) N40.0 Erectile dysfunction N52.9 Weak urinary stream R39.12
== END 2024-04-02 11:16 | disposition home or self-care (01) ==
PROVIDERS: PCP Internal Medicine; Visit Provider Urology
DX: N40.0 Benign prostatic hyperplasia without lower urinary tract symptoms (principal); N52.9 Male erectile dysfunction, unspecified; R39.12 Poor urinary stream; Z13.9 Encounter for screening, unspecified
CPT/HCPCS: 99213

== ENCOUNTER → 2024-04-02 10:22 | Outpatient (BNVA) | payer MEDICARE, SELFPAY | PROVIDERS: PCP Internal Medicine; Visit Provider Urology | DX: N40.1 Benign prostatic hyperplasia with lower urinary tract symptoms (principal); R39.12 Poor urinary stream; R35.1 Nocturia; N52.9 Male erectile dysfunction, unspecified | CPT/HCPCS: 81003; 99212 ==

== ENCOUNTER 2024-04-22 11:06 | Outpatient (AMB) | payer MEDICARE, SELFPAY ==
[2024-04-22 11:18] VITALS: BP 142/74; PULSE 68; O2SAT 97; BMI 24.2
--- NOTE | 2024-04-22 11:18 | A.OFFPC_ITS ---
Vital Signs 04/22/24 11:18 Height 6 ft 3 in Weight 194 lb BMI 24.2 BP 142/74 H Blood Pressure Location Lt brachial Position Sitting Pulse 68 Pulse Source Pulse Oximeter Pulse Oximetry (%) 97 Oxygen Delivery Method Room Air Intake Visit Reasons: PE Cruise Guide Required: No Allergies LUCRECIA Inhibitors Allergy (Intermediate, Verified 04/22/24 11:18) Hyperkalemia Medication List - Last Reconciled 04/22/24 by Shira Jordan Po, albuterol sulfate 90 mcg/actuation (Ventolin HFA) 2 puffs inhalation Q6H PRN apixaban (Eliquis) 5 mg PO BID 90 days carvedilol (Coreg) 6.25 mg PO Q12H 90 days cholecalciferol (vitamin D3) 250 mcg PO DAILY cyanocobalamin (vitamin B-12) 1,000 mcg PO DAILY ezetimibe (Zetia) 10 mg PO DAILY glucosamine HCl 500 mg PO DAILY lactobacillus combination no.4 (Probiotic) 3,000 mmu cells PO DAILY magnesium oxide 500 mg PO DAILY 90 days multivitamin 1 tab PO DAILY omega-3 fatty acids 1,000 mg PO BID polyvinyl alcohol 1.4% (Artificial Tears (polyvinyl alcohol)) 1 drp ophthalmic (eye) BID-QID PRN psyllium husk (Metamucil) 0.8 grams (2 x 0.4 gram) PO BEDTIME PRN sod sulf-pot chloride-mag sulf 1.479-0.188- 0.225 gram (Sutab) PO PER PKG DIR terazosin 10 mg PO BEDTIME 30 days ursodiol (BASIA Forte) 500 mg PO DAILY Tobacco use date assessed: 02/22/24 Fall risk assessment: No Falls in past year Last assessed Fall Risk: 04/22/24 Dental Screening Dental Screen Date: 08/24/23 HPI PE HPI Details 74-year-old male with BPH atrial fibrill ation hypertension hypercholesterolemia ascending aorta dilatation coronary artery disease cervical and thoracic degenerative disc disease coming in for physical exam last seen in 02/12/2024. Noted 12 lb weight gain. Patient has seen Urology in April 02 on terazosin and tamsulosin for lower urinary tract symptoms. Had chronic cystitis placed on trimethoprim. Discussed about procedure for the prostate. Cystoscopy done December 2023 showing subclinical interstitial cystitis, advised retrial of terazosin.. July 12, 2023 Colon test [facility] Medical History (Updated 04/22/24 @ 18:37 by Shira Yusuf MD) Dry eye Vision changes Cystitis Weak urinary stream Left bundle branch block Paroxysmal atrial fibrillation Chronic prostatitis Surgical History Hx of colonoscopy History of cataract surgery History of lumbar surgery Family History (Updated 04/22/24 @ 12:25 by Shira Yusuf MD) Brother Colon cancer Mother Stomach cancer Father Prostate CA Social History (Updated 04/22/24 @ 12:26 by Shira Yusuf MD) Housing: House Alcohol intake: current Comment: 1-2 glasses of wine QD Patient Tobacco Use Status: Never used Tobacco Years Smoked: marijuana e-Cigarette/Vaping Use: Never Used Second Hand Smoke Exposure: No service: No 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 1. Little interest or pleasure in doing things: not at all 2. Feeling down, depressed, or hopeless: not at all 3. Trouble falling or staying asleep, or sleeping too much: several days 4. Feeling tired or having little energy: several days 5. Poor appetite or overeating: not at all 6. Feeling bad about yourself - or that you are a failure or have let yourself or your family down: not at all 7. Trouble concentrating on things, such as reading the newspaper or watching television: not at all 8. Moving or speaking so slowly that other people could have noticed. Or the opposite - being so fidgety or restless that you have been moving around a lot more than usual: not at all 9. Thoughts that you would be better off or of hurting yourself in some way: not at all Total score: 2 49509 - PHQ-9 Billing: Yes Source: Developed by Drs. Mario Lee, Annabella Toscano, Gage Roberts and colleagues, with an educational malcolm from [employer]. Thrive Questionnaire Date Thrive assessed: 04/22/24 I am a: Patient What is your living situation today?: I have a steady place to live Within the past 12 months, did the food you bought not last and you didn't have the money to get more?: Never true Within the past 12 months, did you worry whether your food would run out before you got money to buy more?: Never true Do you have trouble paying for medicines?: No Do you have trouble getting transportation to medical appointments?: No Do you have trouble paying your heating and electricity bill?: No Do you have trouble taking care of your child, family member or friend?: No Do you have trouble with day-to-day activities such as bathing, preparing meals, shopping, managing finances, etc.?: No Are you currently unemployed and looking for a job?: No Are you interested in more education?: No Please select the resources that you would like help with: None Currently or been in a relationship where the following occur: No concerns reported THRIVE Score: 0 AUDIT C Alcohol Use Questionnaire (AUDIT-C) 1. How often do you have a drink containing alcohol?: 2-3 times a week 2. How many drinks containing alcohol do you have on a typical day when you are drinking?: 1 or 2 3. How often do you have six or more drinks on one occasion?: Never Total Score: 3 NEMO-7 AMB Questionnaire NEMO-7 Date NEMO - 7 assessed: 04/22/24 Feeling nervous, anxious, or on edge: 2 = More than half the days Not being able to stop or control worryin = Several days Worrying too much about different things: 1 = Several days Trouble relaxin = Several days Being so restless that it is hard to sit still: 0 = Not at all Becoming easily annoyed or irritable: 1 = Several days Feeling afraid as if something awful might happen: 0 = Not at all Total NEMO-7 score (0-4 normal; 5-9 mild; 10-14 moderate; 15-21 severe): 6 Source: Developed by Drs. Mario Lee, Annabella Toscano, Gage Roberts and colleagues, with an educational malcolm from [employer]. NEMO-7 Assessment Billing NEMO-7 Assessment Tool: NEMO-7 Assessment 78754 Review of Systems Const Denies poor appetite and Denies weakness Eyes Denies no additional complaints ENT Reports Normal hearing present, Denies dizziness, Denies nasal congestion, Denies tinnitus and Denies sore throat Card Denies chest pain, Denies syncope, Denies rapid heart rate and Denies dyspnea Resp Denies cough and Denies dyspnea GI Denies change in stool character, Reports constipation, Denies diarrhea, Denies nausea and Denies vomiting Denies dysuria and Denies urinary frequency Neuro Reports Normal hearing present, Denies confusion, Denies dizziness, Denies syncope and Denies weakness Psych Denies confusion Physical exam (Primary Care) Vital Signs: Last Vital Signs Pulse 68 04/22/24 11:18 BP 142/74 H 04/22/24 11:18 Pulse Ox 97 04/22/24 11:18 Oxygen Delivery Method Room Air 04/22/24 11:18 BMI result Body Mass Index 24.2 Tobacco/Smoking Status: Tobacco use Status Tobacco use date assessed 02/22/24 04/22/24 11:19 Patient Tobacco Use Status Never used Tobacco 04/22/24 12:26 e-Cigarette/Vaping Use Never Used 04/22/24 12:26 PHQ-9: PHQ-9 Score PHQ-9: Total score 2 04/22/24 12:13 Thrive Assessment: Date of Thrive Assessment Date Thrive assessed 04/22/24 04/22/24 11:35 Currently or been in a relationship where the following occur: No concerns reported Const General: No confusion Orientation/consciousness: No confusion HENWA Head: Yes normocephalic Ears: external ears normal and TM's normal bilaterally Face and sinus: Yes normal facial exam Mouth: moist mucous membranes Throat: Yes tonsils normal Eyes Conjunctivae: conjunctivae normal Pupils: Equal, round and reactive pupils present and Pupil accommodation reflex normal Direct Ophthalmoscopy: normal light reflex Neck Neck: No lymphadenopathy Thyroid: Thyroid normal Chest Chest palpation & inspection: normal inspection of the chest Resp Effort & Inspection: normal respiratory effort and no audible wheezes Auscultation: clear to auscultation bilaterally, no crackles, no wheezes and lung sounds not diminished Cardio Rate: regular rate Rhythm: regular rhythm Peripheral pulses: radial pulses present and dorsalis pedis present GI Palpation (GI): no masses Auscultation: normal bowel sounds and normoactive bowel sounds Rectal Exam - Male: Yes deferred Skin General skin exam: no rashes or lesions noted Rashes: no rashes Neuro General: No confusion Cranial nerves: Yes Equal, round and reactive pupils present and Yes Normal hearing present Cognition (Neuro): normal cognition Gait exam (Neuro): Normal gait present Motor exam (neuro): 5/5 motor strength present throughout Deep tendon reflexes (DTR's): Right brachioradialis reflex intensity grade: 2+, Left brachioradialis reflex intensity grade: 2+, Right patellar reflex intensity grade: 2+ and Left patellar reflex intensity grade: 2+ Extrem General: No edema Office Procedures Flu Questionnaire Does the patient have a severe egg allergy?: No Immunizations Fluarix Triv [id number] (PF) 45 mcg (15 mcg x 3)/0.5 mL IM syringe Performing Provider: Shira Yusuf MD [facility] [place] [facility] Documented (not given) by: ANDREZ Becerra on 04/22/24 11:35 Reason Not Given: Received Previously Coding Level of Care Code Est Pt Prev Care >65y(09863) Diagnoses Annual physical exam Z00.00 Colon cancer screening Z12.11 Atherosclerosis of [place] coronary artery of transplanted heart without angina pectoris I25.811 Associated angina: without angina Coronary Disease-Associated Artery/Lesion type: [place] artery [place] vs. transplanted heart: transplanted heart Ascending aorta dilatation I77.810 Primary hypertension I10 Hypertension type: primary hypertension Hypercholesterolemia E78.00 Paroxysmal atrial fibrillation I48.0 Benign prostatic hyperplasia with urinary frequency N40.1; R35.0 Lower urinary tract symptom presence: symptoms present Lower urinary tract symptom detail: urinary frequency Anemia, unspecified type D64.9 Anemia type: unspecified type Gastroesophageal reflux disease without esophagitis K21.9 Esophagitis presence: without esophagitis Additional Codes NEMO-7 Assessment Billing - NEMO-7 Assessment Tool: NEMO-7 Assessment 48133 ([id number]) Assessment & Plan Assessment & Plan (1) Annual physical exam: Code(s): Z00.00 - Encounter for general adult medical examination without abnormal findings Category: Medical Plan: Patient is advised to eat healthy, keep well hydrated, keep active and have adequate sleep. (2) Colon cancer screening: Code(s): Z12.11 - Encounter for screening for malignant neoplasm of colon Category: Medical Plan: Patient has follow-up with Gastroenterology (3) Atherosclerotic heart disease: Comment: CT angio August 2022, echocardiogram July 2023 51% Code(s): I25.10 - Atherosclerotic heart disease of [place] coronary artery without angina pectoris Category: Medical Qualifiers: Associated angina: without angina Coronary Disease-Associated Artery/Lesion type: [place] artery [place] vs. transplanted heart: transplanted heart Qualified Code(s): I25.811 - Atherosclerosis of [place] coronary artery of transplanted heart without angina pectoris Plan: Control the cholesterol, weight, blood pressure, diabetes on Eliquis 5 mg twice a day (4) Ascending aorta dilatation: Comment: 4.4 cm July 2023 Code(s): I77.810 - Thoracic aortic ectasia Category: Medical Plan: Continue to monitor 08/14/2024 (5) Hypertension: Code(s): I10 - Essential (primary) hypertension Category: Medical Qualifiers: Hypertension type: primary hypertension Qualified Code(s): I10 - Essential (primary) hypertension Plan: Continue with blood pressure medication. Decrease salt intake and exercise patient is on carvedilol 6.25 mg twice a day (6) Hypercholesterolemia: Code(s): E78.00 - Pure hypercholesterolemia, unspecified Category: Medical Plan: Avoid fried foods, chicken skin, eggs, butter margarine, pastries and meat. Be it pork or beef they have a lot of cholesterol LDL goal of less than 70 and triglyceride of less than 150 on Zetia only (7) Paroxysmal atrial fibrillation: Comment: Status post radiofrequency ablation in 1993 and cryoablation in 2016 Code(s): I48.0 - Paroxysmal atrial fibrillation Category: Medical Plan: Continue with anticoagulation and carvedilol (8) BPH (benign prostatic hyperplasia): Code(s): N40.0 - Benign prostatic hyperplasia without lower urinary tract symptoms Category: Medical Qualifiers: Lower urinary tract symptom presence: symptoms present Lower urinary tract symptom detail: urinary frequency Qualified Code(s): N40.1 - Benign prostatic hyperplasia with lower urinary tract symptoms; R35.0 - Frequency of micturition Plan: Patient follows up with urology has been given terazosin (9) Anemia: Code(s): D64.9 - Anemia, unspecified Category: Medical Qualifiers: Anemia type: unspecified type Qualified Code(s): D64.9 - Anemia, unspecified Plan: Patient has seen gastroenterology planned colonoscopy and referred to Hematology Oncology (10) GERD (gastroesophageal reflux disease): Code(s): K21.9 - Gastro-esophageal reflux disease without esophagitis Category: Medical Qualifiers: Esophagitis presence: without esophagitis Qualified Code(s): K21.9 - Gastro-esophageal reflux disease without esophagitis Plan: Avoid the foods that causes that usually spicy foods, tomato products, juices, coffee, soda and foods that your sensitive to. After eating do not lie down, allow 3-4 hours before in lie down. And keep the head of bed above 30 degrees to avoid the acid from going up. Orders: Orders Ferritin Today D64.9 - Anemia, unspecified Thyroid Stimulating Hormone Today D64.9 - Anemia, unspecified Prostate Specific Antigen Scr Today D64.9 - Anemia, unspecified Influenza [id number] Immunization Today Z23 - Encounter for immunization Complete Blood Count Auto Diff Today D64.9 - Anemia, unspecified Comprehensive Met. Panel Today D64.9 - Anemia, unspecified Free T4 (Free Thyroxine) Today D64.9 - Anemia, unspecified IRON PROFILE Today D64.9 - Anemia, unspecified Lipid Panel Today D64.9 - Anemia, unspecified, E78.00 - Pure hypercholesterolemia, unspecified Reticulocyte Count Today D64.9 - Anemia, unspecified Vitamin B12 and Folate Today D64.9 - Anemia, unspecified Medications: Changed From carvedilol (Coreg) must administer with a meal/food 6.25 mg PO Q12H 90 days 180 tabs 2RF I48.0 - Paroxysmal atrial fibrillation To carvedilol must administer with a meal/food 12.5 mg PO Q12H 180 tabs 2RF 90 days I48.0 - Paroxysmal atrial fibrillation Refilled apixaban (Eliquis) 5 mg PO BID 180 tabs 2RF 90 days I48.0 - Paroxysmal atrial fibrillation ezetimibe (Zetia) 10 mg PO DAILY 90 tabs 3RF I25.811 - Atherosclerosis of [place] coronary artery of transplanted heart without angina pectoris
== END 2024-04-22 12:49 | disposition home or self-care (01) ==
LOC: HO.HMCH 11:07
PROVIDERS: PCP Internal Medicine; Visit Provider Internal Medicine
DX: Z00.00 Encounter for general adult medical examination without abnormal findings (principal); I77.810 Thoracic aortic ectasia; I48.0 Paroxysmal atrial fibrillation; Z12.11 Encounter for screening for malignant neoplasm of colon; I25.811 Atherosclerosis of native coronary artery of transplanted heart without angina pectoris; I10 Essential (primary) hypertension; E78.00 Pure hypercholesterolemia, unspecified; N40.1 Benign prostatic hyperplasia with lower urinary tract symptoms; R35.0 Frequency of micturition; D64.9 Anemia, unspecified; K21.9 Gastro-esophageal reflux disease without esophagitis

== ENCOUNTER → 2024-04-22 11:06 | Outpatient (BNVA) | payer MEDICARE, SELFPAY | PROVIDERS: PCP Internal Medicine; Visit Provider Internal Medicine | DX: Z00.01 Encounter for general adult medical examination with abnormal findings (principal); I25.811 Atherosclerosis of native coronary artery of transplanted heart without angina pectoris; I77.810 Thoracic aortic ectasia; I10 Essential (primary) hypertension; I48.0 Paroxysmal atrial fibrillation; E78.00 Pure hypercholesterolemia, unspecified; N40.1 Benign prostatic hyperplasia with lower urinary tract symptoms; R35.0 Frequency of micturition; D64.9 Anemia, unspecified; K21.9 Gastro-esophageal reflux disease without esophagitis | CPT/HCPCS: 90471; 96127; 99397 ==

== ENCOUNTER 2024-05-09 14:11 | Outpatient (REF) | payer MEDICARE, SELFPAY ==
[2024-05-09 14:29] LABS: MANUAL DIFF FLAG NO
[2024-05-09 14:51] LABS: Basophils Percent Auto 0.6 % (0-2); Eosinophils Absolute Auto 0.2 X10*3/uL (0.0-0.4); Hematocrit 41.1 % (42.0-52.0); Hemoglobin 13.5 g/dl (14.0-18.0); Imm Gran Abs Auto 0.01 X10*3/uL (0.00-0.03); Imm Gran Pct Auto 0.2 % (0.0-0.4); Immature Retic Fraction 6.7 % (2.3-13.4); Lymphocytes Absolute Auto 1.5 X10*3/uL (1.2-4.9); Lymphocytes Percent Auto 27.5 % (20-40); Mean Corpuscular HGB Conc 32.8 g/dl (31.0-36.0); Mean Corpuscular Hemoglobin 30.8 pg (27.0-33.0); Mean Corpuscular Volume 93.8 fL (80.0-98.0); Mean Platelet Volume 9.8 fL (9.4-12.4); Monocytes Absolute Auto 0.6 X10*3/uL (0.1-1.2); Monocytes Percent Auto 10.7 % (2-11); Neutrophils Absolute Auto 3.1 x10*3/uL (2.0-8.3); Platelet Count 254 X10*3/uL (160-400); Red Blood Count 4.38 X10*6/uL (4.60-5.80); Red Cell Distribution Width 12.4 % (11.0-16.0); Retic HGB Equivalent 33.9 pg (30.0-35.0); Reticulocyte Percent 1.2 % (0.5-1.8); Reticulocytes Absolute 0.051 X10*6/uL (0.026-0.095); White Blood Count 5.3 X10*3/uL (4.8-10.8)
[2024-05-09 15:12] LABS: Alanine Aminotransferase 22 U/L (0-40); Albumin Level 3.7 g/dL (3.5-5.0); Anion Gap 12 (12-20); Aspartate Amino Transferase 24 U/L (5-37); Blood Urea Nitrogen 19 mg/dL (9-16); Calcium 9.2 mg/dL (8.4-10.2); Carbon Dioxide 28 mmol/L (22-29); Chloride 105 mmol/L (96-108); Cholesterol 163 mg/dL (<200); Estimated Glomerular Filt Rate > 60; Glucose Random 107 mg/dL (60-115); HDL Cholesterol 52 mg/dL (>40); Iron 77 mcg/dL (45-160); LDL Cholesterol Calculated 94 mg/dL (<100); Percent Iron Saturation 23 % (15-50); Potassium 4.9 mmol/L (3.3-5.1); Sodium 140 mmol/L (135-145); Total Iron Binding Capacity 330 mcg/dL (228-428); Total Protein 6.8 g/dL (6.5-8.0); Triglycerides 86 mg/dL (<150); Unsaturated Iron Binding 253 ug/dL
[2024-05-09 15:22] LABS: Alkaline Phosphatase 116 U/L (39-117)
[2024-05-09 15:35] LABS: Ferritin 25 ng/mL (20-250); Free T4 (Free Thyroxine) 1.07 ng/dL (0.71-1.85); Thyroid Stimulating Hormone 1.41 uIU/mL (0.32-4.0)
[2024-05-09 15:54] LABS: Folate 14.3 ng/mL (> or = 4.0); Vitamin B12 1248 pg/mL (200-900)
== END 2024-05-09 14:12 | disposition home or self-care (01) ==
LOC: HO.LAB 14:11
PROVIDERS: PCP Internal Medicine; Visit Provider Internal Medicine
DX: D64.9 Anemia, unspecified (principal); E78.00 Pure hypercholesterolemia, unspecified; Z12.5 Encounter for screening for malignant neoplasm of prostate
CPT/HCPCS: 36415; 80053; 80061; 82607; 82728; 82746; 83540; 84153; 84439; 84443; 85025; 85045

== ENCOUNTER → 2024-06-20 09:56 | Outpatient (BNV) | payer MEDICARE, SELFPAY | PROVIDERS: PCP Internal Medicine; Visit Provider Internal Medicine Medical Oncology | DX: D64.9 Anemia, unspecified (principal) | CPT/HCPCS: 99204 ==

== ENCOUNTER 2024-07-02 12:51 | Outpatient (AMB) | payer MEDICARE, SELFPAY ==
[2024-07-02 12:58] VITALS: BP 144/88; PULSE 73; O2SAT 97; BMI 25.0
--- NOTE | 2024-07-02 12:58 | MHC.PC.OV ---
Vital Signs 07/02/24 12:58 Height 6 ft 3 in Weight 200 lb BMI 25.0 BP 144/88 H Blood Pressure Location Lt brachial Position Sitting Pulse 73 Pulse Source Pulse Oximeter Pulse Oximetry (%) 97 Oxygen Delivery Method Room Air Intake Visit Reasons: Side effects to med Allergies LUCRECIA Inhibitors Allergy (Intermediate, Verified 07/02/24 12:58) Hyperkalemia Tobacco use date assessed: 07/02/24 Fall risk assessment: No Falls in past year Last assessed Fall Risk: 07/02/24 Dental Screening Dental Screen Date: 07/02/24 Did you have a dental visit in the last 12 months?: Yes Did you have a dental problem in the last 6 months where you did not have access to dental care?: No Was dental information given to patient?: Patient has dentist HPI Side effects to med HPI Details The patient is a 74-year-old male presenting with medication management and evaluation of side effects. The patient has a known history of hyperlipidemia and has previously been on Zetia, which led to gastrointestinal side effects including nausea, vomiting, and diarrhea. The patient was also on rosuvastatin with a prior history of discontinuation despite effective cholesterol control due to an unclear reason. The patient has congestive heart failure and hypertension, managed with carvedilol, which the patient believes contributes significantly to erectile dysfunction experienced post-ablation procedure in 2017. The patient admitted frustration with the impact of medications on his quality of life, especially regarding erectile dysfunction. His prior use of rosuvastatin effectively managed low-density lipoprotein levels, but his recent reintroduction of Zetia resulted in gastrointestinal complaints. His prostate issues have been managed with medication; however, surgical intervention has been suggested but not yet pursued. The patient also has an ongoing concern about prostate enlargement and is monitored for iron deficiency anemia, with a blood count of 14.1 indicating resolution. Additionally, he has Gilbert's syndrome, contributing to specific liver function test results but currently asymptomatic. [facility] Medical History (Updated 06/20/24 @ 11:47 by Sushant Marti MD) Dry eye Vision changes Cystitis Weak urinary stream Left bundle branch block Paroxysmal atrial fibrillation Chronic prostatitis Surgical History (Updated 06/20/24 @ 11:47 by Sushant Marti MD) Hx of colonoscopy History of cataract surgery History of lumbar surgery Family History (Updated 06/20/24 @ 10:39 by Juan C Bennett) Brother Colon cancer Non-small cell lung cancer Mother Stomach cancer Father Prostate CA Social History (Updated 06/20/24 @ 10:39 by Juan C Bennett) Household Members: None Housing: House Alcohol intake: current Comment: 1-2 glasses of wine QD Patient Tobacco Use Status: Never used Tobacco Tobacco use type: Cigarette Years Smoked: marijuana e-Cigarette/Vaping Use: Never Used Second Hand Smoke Exposure: No service: No 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 1. Little interest or pleasure in doing things: not at all 2. Feeling down, depressed, or hopeless: not at all 3. Trouble falling or staying asleep, or sleeping too much: several days 4. Feeling tired or having little energy: several days 5. Poor appetite or overeating: not at all 6. Feeling bad about yourself - or that you are a failure or have let yourself or your family down: not at all 7. Trouble concentrating on things, such as reading the newspaper or watching television: not at all 8. Moving or speaking so slowly that other people could have noticed. Or the opposite - being so fidgety or restless that you have been moving around a lot more than usual: not at all 9. Thoughts that you would be better off or of hurting yourself in some way: not at all Total score: 2 25517 - PHQ-9 Billing: Yes Source: Developed by Drs. Mario Lee, Annabella Toscano, Gage Roberts and colleagues, with an educational malcolm from [employer]. Thrive Questionnaire Date Thrive assessed: 07/02/24 I am a: Patient What is your living situation today?: I have a steady place to live Within the past 12 months, did the food you bought not last and you didn't have the money to get more?: Never true Within the past 12 months, did you worry whether your food would run out before you got money to buy more?: Never true Do you have trouble paying for medicines?: No Do you have trouble getting transportation to medical appointments?: No Do you have trouble paying your heating and electricity bill?: No Do you have trouble taking care of your child, family member or friend?: No Do you have trouble with day-to-day activities such as bathing, preparing meals, shopping, managing finances, etc.?: No Are you currently unemployed and looking for a job?: No Are you interested in more education?: No Please select the resources that you would like help with: None Currently or been in a relationship where the following occur: No concerns reported THRIVE Score: 0 AUDIT C Alcohol Use Questionnaire (AUDIT-C) 2. How many drinks containing alcohol do you have on a typical day when you are drinking?: 1 or 2 3. How often do you have six or more drinks on one occasion?: Never Total Score: 0 NEMO-7 AMB Questionnaire NEMO-7 Date NEMO - 7 assessed: 07/02/24 Feeling nervous, anxious, or on edge: 2 = More than half the days Not being able to stop or control worryin = Several days Worrying too much about different things: 1 = Several days Trouble relaxin = Several days Being so restless that it is hard to sit still: 0 = Not at all Becoming easily annoyed or irritable: 1 = Several days Feeling afraid as if something awful might happen: 0 = Not at all Total NEMO-7 score (0-4 normal; 5-9 mild; 10-14 moderate; 15-21 severe): 6 Source: Developed by Drs. Mario Lee, Annabella Toscano, Gage Roberts and colleagues, with an educational malcolm from [employer]. NEMO-7 Assessment Billing NEMO-7 Assessment Tool: NEMO-7 Assessment 84726 Physical exam (Primary Care) Vital Signs: Last Vital Signs Pulse 73 07/02/24 12:58 BP 144/88 H 07/02/24 12:58 Pulse Ox 97 07/02/24 12:58 Oxygen Delivery Method Room Air 07/02/24 12:58 BMI result Body Mass Index 25.0 Tobacco/Smoking Status: Tobacco use Status Tobacco use date assessed 07/02/24 07/02/24 13:04 Patient Tobacco Use Status Never used Tobacco 07/02/24 13:04 Tobacco use type Cigarette 07/02/24 13:04 e-Cigarette/Vaping Use Never Used 07/02/24 13:04 PHQ-9: PHQ-9 Score PHQ-9: Total score 2 07/02/24 13:04 Thrive Assessment: Date of Thrive Assessment Date Thrive assessed 07/02/24 07/02/24 13:04 Currently or been in a relationship where the following occur: No concerns reported Const General: alert; No acute distress Eyes Conjunctivae: conjunctivae normal Resp Auscultation: clear to auscultation bilaterally Cardio Rate: regular rate Rhythm: regular rhythm GI Inspection: Yes normal to inspection Extrem General: Yes normal to inspection and No edema Coding Level of Care Code Est Pt Level 4 (70774) Complex EM visit Add On G2211 Diagnoses 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 transplanted heart: transplanted heart Associated angina: without angina Ascending aorta dilatation I77.810 Primary hypertension I10 Hypertension type: primary hypertension Hypercholesterolemia E78.00 Mild intermittent asthma without complication J45.20 Asthma severity: mild Asthma persistence: intermittent Asthma complication type: uncomplicated Paroxysmal atrial fibrillation I48.0 Benign prostatic hyperplasia with urinary frequency N40.1; R35.0 Lower urinary tract symptom presence: symptoms present Lower urinary tract symptom detail: urinary frequency Gastroesophageal reflux disease without esophagitis K21.9 Esophagitis presence: without esophagitis Normochromic normocytic anemia D64.9 Additional Codes NEMO-7 Assessment Billing - NEMO-7 Assessment Tool: NEMO-7 Assessment [id number] ([id number]) PHQ-9 - 38531 - PHQ-9 Billing: Yes ([id number]) Assessment & Plan Assessment & Plan (1) Atherosclerotic heart disease: Comment: CT angio August 2022, echocardiogram July 2023 51% Code(s): I25.10 - Atherosclerotic heart disease of [place] coronary artery without angina pectoris Category: Medical Qualifiers: Coronary Disease-Associated Artery/Lesion type: [place] artery [place] vs. 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 (2) Ascending aorta dilatation: Comment: 4.4 cm July 2023 Code(s): I77.810 - Thoracic aortic ectasia Category: Medical (3) Hypertension: Code(s): I10 - Essential (primary) hypertension Category: Medical Qualifiers: Hypertension type: primary hypertension Qualified Code(s): I10 - Essential (primary) hypertension Plan: BP list 117 - 151/ 70-94 BP mostly controlled (4) Hypercholesterolemia: Code(s): E78.00 - Pure hypercholesterolemia, unspecified Category: Medical Plan: place back rosuvastatin and taken off zetia (5) Asthma: Code(s): J45.909 - Unspecified asthma, uncomplicated Category: Medical Qualifiers: Asthma severity: mild Asthma persistence: intermittent Asthma complication type: uncomplicated Qualified Code(s): J45.20 - Mild intermittent asthma, uncomplicated (6) Paroxysmal atrial fibrillation: Comment: Status post radiofrequency ablation in 1993 and cryoablation in 2017 Code(s): I48.0 - Paroxysmal atrial fibrillation Category: Medical (7) BPH (benign prostatic hyperplasia): Code(s): N40.0 - Benign prostatic hyperplasia without lower urinary tract symptoms Category: Medical Qualifiers: Lower urinary tract symptom presence: symptoms present Lower urinary tract symptom detail: urinary frequency Qualified Code(s): N40.1 - Benign prostatic hyperplasia with lower urinary tract symptoms; R35.0 - Frequency of micturition (8) GERD (gastroesophageal reflux disease): Code(s): K21.9 - Gastro-esophageal reflux disease without esophagitis Category: Medical Qualifiers: Esophagitis presence: without esophagitis Qualified Code(s): K21.9 - Gastro-esophageal reflux disease without esophagitis (9) Normochromic normocytic anemia: Code(s): D64.9 - Anemia, unspecified Category: Medical Plan - Rosuvastatin will be reinstated for hyperlipidemia management to aim for LDL below 70 mg/dL. - Zetia will be discontinued due to adverse gastrointestinal effects; monitor cholesterol levels. - Continue carvedilol for hypertension and heart failure management, acknowledging the side effect of erectile dysfunction. - Referral to urology for further evaluation of erectile dysfunction, with a follow-up appointment already scheduled. - Monitor blood pressure regularly to assess control and make necessary adjustments to the hypertensive regimen. - Implement lifestyle modifications including hydration and gradual movements to counteract dizziness with carvedilol use. - Address prostate enlargement management and revisit the discussion on surgical intervention at the next urology consultation. - Maintain iron supplementation if needed and monitor blood work periodically to ensure normal hemoglobin levels. - Acknowledge Gilbert's Syndrome; no immediate intervention required, continue routine monitoring. - Lifestyle advice provided for regular physical activity and dietary adjustments to support cardiovascular health. - Recommend COVID vaccination and annual influenza vaccination due to increased risk from existing heart condition. Orders: Orders Comprehensive Met. 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
== END 2024-07-02 13:39 | disposition home or self-care (01) ==
PROVIDERS: PCP Internal Medicine; Visit Provider Internal Medicine
DX: I25.811 Atherosclerosis of native coronary artery of transplanted heart without angina pectoris (principal); I77.810 Thoracic aortic ectasia; I48.0 Paroxysmal atrial fibrillation; I10 Essential (primary) hypertension; E78.00 Pure hypercholesterolemia, unspecified; J45.20 Mild intermittent asthma, uncomplicated; N40.1 Benign prostatic hyperplasia with lower urinary tract symptoms; R35.0 Frequency of micturition; K21.9 Gastro-esophageal reflux disease without esophagitis; D64.9 Anemia, unspecified

== ENCOUNTER → 2024-07-02 12:51 | Outpatient (BNVA) | payer MEDICARE, SELFPAY | PROVIDERS: PCP Internal Medicine; Visit Provider Internal Medicine | DX: E78.5 Hyperlipidemia, unspecified (principal); I25.811 Atherosclerosis of native coronary artery of transplanted heart without angina pectoris; I77.810 Thoracic aortic ectasia; I10 Essential (primary) hypertension; E78.00 Pure hypercholesterolemia, unspecified; J45.20 Mild intermittent asthma, uncomplicated; I48.0 Paroxysmal atrial fibrillation; N40.1 Benign prostatic hyperplasia with lower urinary tract symptoms; R35.0 Frequency of micturition; K21.9 Gastro-esophageal reflux disease without esophagitis; D64.9 Anemia, unspecified | CPT/HCPCS: 96127; 99212 ==

== ENCOUNTER 2024-07-04 09:20 | Outpatient (AMB) | payer MEDICARE, SELFPAY ==
--- NOTE | 2024-07-04 09:23 | A.OFFVIS_ITS ---
Intake Visit Reasons: 3M UA/PVR/Med Review(Terazosin) Intake Note: Pt presents to the office today for a 3 month UA/PVR/Med review. PVR-13mL Allergies LUCRECIA Inhibitors Allergy (Intermediate, Verified 07/04/24 09:34) Hyperkalemia HPI Comments Details: Lio is a pleasant male. He is a patient of Dr. Yusuf. He has seen for the following urologic conditions - lower urinary tract symptoms Bladder Has stabilize Completed three-month of trimethoprim for subclinical interstitial cystitis versus chronic cystitis UA today shows no evidence of leukocytes PVR low Interested in erectile dysfunction medications Prescription for 20 mg tadalafil provided Office cystoscopy 01/15 - glomerulation. Subclinical interstitial cystitis versus chronic cystitis. Lower urinary tract symptoms Progressive Primarily weakness of stream with difficulty emptying Nocturia x2 Current therapy terazosin PSA 05/18 0.9 PFSH Medical History Dry eye Vision changes Cystitis Weak urinary stream Left bundle branch block Paroxysmal atrial fibrillation Chronic prostatitis Surgical History Hx of colonoscopy History of cataract surgery History of lumbar surgery Family History Brother Colon cancer Non-small cell lung cancer Mother Stomach cancer Father Prostate CA Social History Household Members: None Housing: House Alcohol intake: current Comment: 1-2 glasses of wine QD Patient Tobacco Use Status: Never used Tobacco Tobacco use type: Cigarette Years Smoked: marijuana e-Cigarette/Vaping Use: Never Used Second Hand Smoke Exposure: No service: No 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: No Hearing needs: No Vision needs: No Review of Systems Const Denies chills and Denies fever(s) Card Reports no additional complaints and Denies syncope Resp Denies cough GI Denies abdominal pain and Denies heartburn Reports as per HPI and Denies change in libido Neuro Denies syncope Psych Denies change in libido Endo Denies change in libido Physical Exam Const General: cooperative, healthy appearing, comfortable and no acute distress Orientation/consciousness: patient oriented x3 HEENT Face and sinus: Yes normal facial exam Mouth: moist mucous membranes Neck Neck: Yes normal visual inspection, Yes full ROM and Yes trachea midline Chest Chest palpation & inspection: normal inspection of the chest Resp Effort & Inspection: normal respiratory effort, able to speak in complete sentences and no respiratory distress GI Inspection: Yes normal to inspection Back/Spine/Pelvis Cervical Spine: normal cervical lordosis Thoracic/Lumbar Spine: thoracic and lumbar spine normal to inspection Skin General skin exam: no rashes or lesions noted Neuro General: patient oriented x3, gait normal, tone normal and moves all extremities Extrem General: Yes normal to inspection and Yes capillary refill normal Office Procedures Post Void Residual Post Residual Void Post Void Residual (PVR): 13 30353-Hbnd Void Residual by ultrasound Results AMB Urinalysis, Automated UA Leukoctes 0 Willa/uL Last Edit by Jordyn Varma CMA on 07/04/24 09:42 UA Nitrite Negative Last Edit by Jordyn Varma CMA on 07/04/24 09:42 UA Urobilinogen 0.2 mg/dL Last Edit by Jordyn Varma CMA on 07/04/24 09:42 UA Protein 15 mg/dL Last Edit by Jordyn Varma CMA on 07/04/24 09:42 UA pH 6.0 Last Edit by Jordyn Varma CMA on 07/04/24 09:42 UA Blood 0 Dion/uL Last Edit by Jordyn Varma CMA on 07/04/24 09:42 UA Specific [place] 1.025 Last Edit by Jordyn Varma CMA on 07/04/24 09:42 UA Ketone Negative Last Edit by Jordyn Varma CMA on 07/04/24 09:42 UA Bilirubin 0 mg/dL Last Edit by Jordyn Varma CMA on 07/04/24 09:42 UA Glucose 0 mg/dL Last Edit by Jordyn Varma CMA on 07/04/24 09:42 Results Reviewed Results Reviewed: Laboratory Last Values Urine pH (Auto) 6.0 07/04/24 09:35 Specific [place] (Auto) 1.025 07/04/24 09:35 Urine Protein (Auto) 15 mg/dL 07/04/24 09:35 Glucose (UA)(Auto) 0 mg/dL 07/04/24 09:35 Urine Ketones (Auto) Negative 07/04/24 09:35 Urine Blood (Auto) 0 Dion/uL 07/04/24 09:35 Urine Nitrite (Auto) Negative 07/04/24 09:35 Urine Bilirubin (Auto) 0 mg/dL 07/04/24 09:35 Urine Urobilinogen (Auto) 0.2 mg/dL 07/04/24 09:35 Leukocyte Esterase (Auto) 0 Willa/uL 07/04/24 09:35 Assessment & Plan Assessment & Plan (1) Erectile dysfunction: Code(s): N52.9 - Male erectile dysfunction, unspecified Category: Medical (2) BPH (benign prostatic hyperplasia): Code(s): N40.0 - Benign prostatic hyperplasia without lower urinary tract symptoms Category: Medical Qualifiers: Lower urinary tract symptom presence: symptoms present Lower urinary tract symptom detail: urinary frequency Qualified Code(s): N40.1 - Benign prostatic hyperplasia with lower urinary tract symptoms; R35.0 - Frequency of micturition Plan Six-month follow-up PVR orifice Orders: Orders AMB Urinalysis Automated Today R35.0 - Frequency of micturition AMB Post Void Residual by ultrasound Today R35.0 - Frequency of micturition Medications: New tadalafil On demand medication take 60 minutes before intended activity 20 mg PO ONCE 30 days PRN 30 tabs 0RF sexual activity N52.9 - Male erectile dysfunction, unspecified Patient Instructions: Imaging studies, laboratory and physical exam results were discussed and reviewed in detail. No major barriers to patient understanding were identified. An opportunity to ask questions regarding the treatment plan was provided. All questions were answered. The patient expressed understanding and agreement with the above treatment plan. The patient is aware they should contact our office by phone for worsening of their current condition or the appearance of new urologic symptoms. Compliance is encouraged with any medications and followup testing that is ordered. It is a privilege to participate in the urologic care of your patient. If you have any questions or concerns regarding treatment for the above conditions, or other urologic issues, please do not hesitate to contact me. The office telephone contact is [phone]. This note is constructed using voice recognition software. While every effort has been made to ensure accuracy cone machine feeder errors may have been included. Yours sincerely, Dr Arcenio Garcia MD, [facility] - Urology Providers of Expert, Compassionate Care for the Genitourinary System Coding Level of Care Code Est Pt Level 4 (70431) Diagnoses Erectile dysfunction N52.9 Benign prostatic hyperplasia with urinary frequency N40.1; R35.0 Lower urinary tract symptom presence: symptoms present Lower urinary tract symptom detail: urinary frequency CPT Codes Post Residual Void - PVR CPT Code: 82118-Ibzg Void Residual by ultrasound ([id number])
== END 2024-07-04 09:58 | disposition home or self-care (01) ==
PROVIDERS: PCP Internal Medicine; Visit Provider Urology
DX: N52.9 Male erectile dysfunction, unspecified (principal); N40.1 Benign prostatic hyperplasia with lower urinary tract symptoms; R35.0 Frequency of micturition
CPT/HCPCS: 99214

== ENCOUNTER → 2024-07-04 09:20 | Outpatient (BNVA) | payer MEDICARE, SELFPAY | PROVIDERS: PCP Internal Medicine; Visit Provider Urology | DX: N52.9 Male erectile dysfunction, unspecified (principal); N40.1 Benign prostatic hyperplasia with lower urinary tract symptoms; R35.0 Frequency of micturition | CPT/HCPCS: 51798; 81003; 99212 ==

== ENCOUNTER 2024-07-10 08:43 | Day surgery (SDC) | payer MEDICARE, SELFPAY ==
[2024-07-08 08:19] VITALS: BMI 22.7
--- NOTE | 2024-07-09 08:58 | HO.ANESPROP2 ---
HPI - Anesthesia Eval Consult details Narrative: 74yo M for Colonoscopy Eliquis for afib PMFSH Active Problems Active Problems: All Active Problems Normochromic normocytic anemia (Acute) GERD (gastroesophageal reflux disease) (Acute) Annual physical exam (Acute) Family history of colon cancer (Acute) Anemia (Acute) Peripheral neuropathy (Acute) Constipation (Acute) BPH (benign prostatic hyperplasia) (Acute) Frequency of micturition (Acute) Erectile dysfunction (Acute) Lumbar degenerative disc disease (Acute) Colon cancer screening (Acute) Left bundle branch block (Acute) Paroxysmal atrial fibrillation (Acute) Asthma (Acute) Gilbert's disease (Acute) Hypercholesterolemia (Acute) Hypertension (Acute) Degenerative disc disease, thoracic (Acute) Degenerative disc disease, cervical (Acute) Ascending aorta dilatation (Acute) Atherosclerotic heart disease (Acute) Past Medical History Medical History Dry eye Vision changes Cystitis Weak urinary stream Left bundle branch block Paroxysmal atrial fibrillation Chronic prostatitis Family History Family History Brother Colon cancer Non-small cell lung cancer Mother Stomach cancer Father Prostate CA Surgical History Surgical History Hx of colonoscopy History of cataract surgery History of lumbar surgery Social History Social History Household Members: None Housing: House Alcohol intake: current Comment: 1-2 glasses of wine QD Patient Tobacco Use Status: Never used Tobacco Tobacco use type: Cigarette Years Smoked: marijuana e-Cigarette/Vaping Use: Never Used Second Hand Smoke Exposure: No service: No 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: No Hearing needs: No Vision needs: No Meds Allergies Allergy/AdvReac Type Severity Reaction Status Date / Time LUCRECIA Inhibitors Allergy Intermediate Hyperkalemi Verified 07/04/24 09:34 a Home Medications ?Medication ?Instructions ?Recorded ?Confirmed ?Last Taken ?Type cholecalciferol (vitamin D3) 250 250 mcg PO DAILY 05/09/23 06/20/24 Unknown History mcg (10,000 unit) capsule omega-3 fatty acids 1,000 mg 1,000 mg PO BID 05/09/23 06/20/24 Unknown History capsule albuterol sulfate 90 mcg/actuation 2 puff inhalation Q6H PRN 08/24/23 06/20/24 Unknown History aerosol inhaler (Ventolin HFA) shortness of breath or wheezing cyanocobalamin (vitamin B-12) 1,000 mcg PO DAILY 08/24/23 06/20/24 Unknown History 1,000 mcg capsule glucosamine HCl 500 mg tablet 500 mg PO DAILY 08/24/23 06/20/24 Unknown History lactobacillus combination no.4 3 3,000 mmu cells PO DAILY 08/24/23 06/20/24 Unknown History billion cell capsule (Probiotic) multivitamin 1 tab PO DAILY 08/24/23 06/20/24 Unknown History ursodiol 500 mg tablet (BASIA Forte) 500 mg PO DAILY 08/24/23 06/20/24 Unknown History Exam Height,Weight and Vital Signs: Height 6 ft 3 in Weight 82.554 kg Pertinent Lab Results Pertinent Lab Results: Laboratory Tests 06/20/24 11:34 WBC 5.6 Hgb 14.1 Hct 43.7 Plt Count 226 Sodium 140 Potassium 4.6 Chloride 105 Carbon Dioxide 31 H BUN 17 H Creatinine 0.82 Narrative Narrative: ECHO 2023 Conclusions: - The left ventricular systolic function is mildly decreased. The calculated ejection fraction is 51% by biplane method. - There is mild calcification of the aortic valve. - There is mild dilatation of the ascending aorta measuring 4.40 cm. EKG 06/2023 Details: EKG shows normal sinus rhythm with left bundle-branch block at 73 beats per minute Assessment and Plan Assessment Anesthesia Assessment: Chart Reviewed
--- NOTE | 2024-07-10 09:18 | MHC.SHP ---
Pre-Procedural Eval Section A - 24 Hr Update-Section A only Date of Service: 07/10/24 Section B - Complete if H&P > 30 days Chief Complaint: Family history of malignant neoplasm of digestive Details of Present Illness: Left bundle branch block Paroxysmal atrial fibrillation Chronic prostatitis Surgical History Hx of colonoscopy History of cataract surgery History of lumbar surgery Allergies: Allergies Allergy/AdvReac Type Severity Reaction Status Date / Time LUCRECIA Inhibitors Allergy Intermediate Hyperkalemi Verified 07/04/24 09:34 a Review of Systems Review of Systems Comment: Ten point ROS negative Exam Exam Comment: Gen appear: No acute distress HEENT: no icterus Chest: No overt resp distress Abd: soft, nontender, nondistended Psych: Stable affect, answering questions appropriately Neuro: A/Ox3 noted to move all extremities spontaneously Ext: no peripheral edema Plan Diagnosis/Plan: Unchanged I have reviewed the history and physical and performed a pertinent physical examination on my patient. No changes have occurred unless specified. Time Spent With Patient Time: Total time managing care of this patient today ____ minutes.
[2024-07-10 09:35] VITALS: BP 135/96; PULSE 71; RESP 12; TEMP 37; O2SAT 96; BMI 24.6
--- NOTE | 2024-07-10 09:35 | HO.ANESPROP2 ---
[facility] Active Problems Active Problems: All Active Problems Normochromic normocytic anemia (Acute) GERD (gastroesophageal reflux disease) (Acute) Annual physical exam (Acute) Family history of colon cancer (Acute) Anemia (Acute) Peripheral neuropathy (Acute) Constipation (Acute) BPH (benign prostatic hyperplasia) (Acute) Frequency of micturition (Acute) Erectile dysfunction (Acute) Lumbar degenerative disc disease (Acute) Colon cancer screening (Acute) Left bundle branch block (Acute) Paroxysmal atrial fibrillation (Acute) Asthma (Acute) Gilbert's disease (Acute) Hypercholesterolemia (Acute) Hypertension (Acute) Degenerative disc disease, thoracic (Acute) Degenerative disc disease, cervical (Acute) Ascending aorta dilatation (Acute) Atherosclerotic heart disease (Acute) Past Medical History Medical History Dry eye Vision changes Cystitis Weak urinary stream Left bundle branch block Paroxysmal atrial fibrillation Chronic prostatitis Functional capacity: independent ambulation Family History Family History Brother Colon cancer Non-small cell lung cancer Mother Stomach cancer Father Prostate CA Family history of problems with anesthesia: No Surgical History Surgical History Hx of colonoscopy History of cataract surgery History of lumbar surgery History of Problems with Anesthesia: No Social History Social History Household Members: None Housing: House Alcohol intake: current Comment: 1-2 glasses of wine QD Patient Tobacco Use Status: Never used Tobacco Tobacco use type: Cigarette Years Smoked: marijuana e-Cigarette/Vaping Use: Never Used Second Hand Smoke Exposure: No Advance Directives: No Advance Directives Information Provided: Yes service: No 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: No Hearing needs: No Vision needs: No Meds Allergies Allergy/AdvReac Type Severity Reaction Status Date / Time LUCRECIA Inhibitors Allergy Intermediate Hyperkalemi Verified 07/10/24 09:19 a Active Medications: Current Medications Lactated Ringer's (Lr) 1,000 mls @ 100 mls/hr IVCONT .Q10H SERGIO Home Medications ?Medication ?Instructions ?Recorded ?Confirmed ?Last Taken ?Type cholecalciferol (vitamin D3) 250 250 mcg PO DAILY 05/09/23 06/20/24 Unknown History mcg (10,000 unit) capsule omega-3 fatty acids 1,000 mg 1,000 mg PO BID 05/09/23 06/20/24 Unknown History capsule albuterol sulfate 90 mcg/actuation 2 puff inhalation Q6H PRN 08/24/23 06/20/24 Unknown History aerosol inhaler (Ventolin HFA) shortness of breath or wheezing cyanocobalamin (vitamin B-12) 1,000 mcg PO DAILY 08/24/23 06/20/24 Unknown History 1,000 mcg capsule glucosamine HCl 500 mg tablet 500 mg PO DAILY 08/24/23 06/20/24 Unknown History lactobacillus combination no.4 3 3,000 mmu cells PO DAILY 08/24/23 06/20/24 Unknown History billion cell capsule (Probiotic) multivitamin 1 tab PO DAILY 08/24/23 06/20/24 Unknown History ursodiol 500 mg tablet (BASIA Forte) 500 mg PO DAILY 08/24/23 06/20/24 Unknown History Exam Height,Weight and Vital Signs: Height 6 ft 3 in Weight 82.554 kg Airway Mallampati Class: II TM Dist: >3cm Neck ROM: Full Heart: RRR Lungs: CTA Assessment and Plan Assessment Anesthesia Assessment: Anesthesia Plan Discussed and Chart Reviewed Final Anesthetic Review Family History of Problems with Anesthesia: No History of Problems with Anesthesia: No NPO: Yes ASA Class: II Final Preanesthetic Review: Meds/Allgs Chart Reviewed, Consent Obtained/Reviewed and Anes Risks/Benef Reviewed Patient Risk: Low Procedure Risk: Low Anesthetic Plan Anesthetic Plan: MAC: Disposition: Standard PACU
[2024-07-10] MEDS: Lactated Ringers 1,000 ML 100 ML IVCONT (09:39)
--- NOTE | 2024-07-10 10:24 | P.OPN-COLO_ITS ---
Colonoscopy Operative Note Operative Note Date of Service: 07/10/24 Narrative: Procedure: Colonoscopy Indication: Fam hx of CRC Endoscopist: Thania Rodas MD Anesthesia Provider: Beata Galeas MD Anesthesia type: MAC Instrument: Olympus [id number]-H190L Consent: Indication, risks vs benefits, and alternatives were discussed with the patient who gave written informed consent to proceed. EKG, pulse, pulse oximetry and blood pressure were monitored throughout the procedure. Please see anesthesia flowsheet. Procedure: The patient was brought to the procedure room and placed in the left lateral decubitus position. IV medications were administered by the anesthesia provider in attendance. A digital rectal exam was performed which was normal. A distal attachment cap was affixed to the tip of the colonoscope which was then inserted through the anus and advanced through the colon to the cecum at 75 cm,and terminal ileum. Appendiceal orifice and ileocecal valve were identified. Mucosa was carefully examined under high definition white light as the instrument was slowly withdrawn in a retrograde panoramic fashion. Retroflexion was performed in ascending colon and rectum. The procedure was not difficult. There were no immediate obvious complications. The quality of the prep was BBPS: 2+3+2 = adequate Withdrawal time 8 minutes. Limitations: No limitations. Findings: Mucosa: Normal to cecum and terminal ileum. Protruding lesions: * Medium internal hemorrhoids without stigmata of recent bleeding. Excavated lesions: * Mild diverticulosis of sigmoid colon. Impression: 1. Normal colon and terminal ileum mucosa 2. Diverticulosis 3. Internal hemorrhoids Recommendations: - Repeat colonoscopy in 5 years due to fam hx of CRC - Follow up in GI office PRN.
[2024-07-10 10:30] VITALS: BP 100/57; PULSE 62; RESP 16; TEMP 36.6; O2SAT 92
[2024-07-10 10:45] VITALS: BP 139/76; PULSE 62; RESP 16; O2SAT 92
--- NOTE | 2024-07-10 11:02 | HO.POSTANES ---
Post Anesthesia Evaluation Post Anesthesia Evaluation Date of Service: 07/10/24 Vital Signs: Vital Signs Temp Pulse Resp BP Pulse Ox O2 Del Method 07/10/24 10:45 62 16 139/76 92 Room Air 07/10/24 10:30 98 F 62 16 100/57 L 92 Room Air 07/10/24 09:35 98.6 F 71 12 135/96 H 96 Room Air Anesthesia: Monitored Mental Status: Awake Pain Control: Satisfactory Nausea/Vomiting: None Hydration: Adequate Anesthesia-Related Issues: No Anes. Related Issues
== END 2024-07-10 11:47 | disposition home or self-care (01) ==
PROVIDERS: PCP Internal Medicine; Visit Provider Internal Medicine
PROC: 0DJD8ZZ Inspection of Lower Intestinal Tract, Via Natural or Artificial Opening Endoscopic (ICD-10-PCS; CPT 45378; principal; 2024-07-10 11:00)
DX: Z12.11 Encounter for screening for malignant neoplasm of colon (principal); Z80.0 Family history of malignant neoplasm of digestive organs; K57.30 Diverticulosis of large intestine without perforation or abscess without bleeding; K64.8 Other hemorrhoids; D64.9 Anemia, unspecified; N41.1 Chronic prostatitis; I44.7 Left bundle-branch block, unspecified; I48.0 Paroxysmal atrial fibrillation; I71.40 Abdominal aortic aneurysm, without rupture, unspecified; D75.9 Disease of blood and blood-forming organs, unspecified; Z79.01 Long term (current) use of anticoagulants; Z88.8 Allergy status to other drugs, medicaments and biological substances; Z98.890 Other specified postprocedural states
CPT/HCPCS: G0105; J2003; J2704

== ENCOUNTER → 2024-07-10 08:43 | Outpatient (BNV) | payer MEDICARE, SELFPAY | PROVIDERS: PCP Internal Medicine; Visit Provider Internal Medicine | DX: Z12.11 Encounter for screening for malignant neoplasm of colon (principal); Z80.0 Family history of malignant neoplasm of digestive organs; K57.30 Diverticulosis of large intestine without perforation or abscess without bleeding; K64.8 Other hemorrhoids | CPT/HCPCS: G0105 ==

== ENCOUNTER 2024-10-08 09:59 | Outpatient (AMB) | payer MEDICARE, SELFPAY ==
[2024-10-08 10:02] VITALS: BP 138/78; PULSE 75; O2SAT 97; BMI 25.9
--- NOTE | 2024-10-08 10:02 | A.OFFPC_ITS ---
Vital Signs 10/08/24 10:02 Height 6 ft 3 in Weight 207 lb BMI 25.9 BP 138/78 Blood Pressure Location Lt brachial Position Sitting Pulse 75 Pulse Source Pulse Oximeter Pulse Oximetry (%) 97 Oxygen Delivery Method Room Air Intake Visit Reasons: 3mth f/u Intake Note: Tingling in toes, nausea, dizziness since starting eliquis and carvedilol. Allergies LUCRECIA Inhibitors Allergy (Intermediate, Verified 10/08/24 10:03) Hyperkalemia Medication List - Last Reconciled 10/08/24 by Shira Yusuf MD albuterol sulfate 90 mcg/actuation (Ventolin HFA) 2 puffs inhalation Q6H PRN apixaban (Eliquis) 5 mg PO BID 90 days carvedilol 6.25 mg PO Q12H 90 days cholecalciferol (vitamin D3) 250 mcg PO DAILY cyanocobalamin (vitamin B-12) 1,000 mcg PO DAILY glucosamine HCl 500 mg PO DAILY lactobacillus combination no.4 (Probiotic) 3,000 mmu cells PO DAILY magnesium oxide 500 mg PO DAILY 90 days multivitamin 1 tab PO DAILY omega-3 fatty acids 1,000 mg PO BID polyvinyl alcohol 1.4% (Artificial Tears (polyvinyl alcohol)) 1 drp ophthalmic (eye) BID-QID PRN psyllium husk (Metamucil) 0.8 grams (2 x 0.4 gram) PO BEDTIME PRN rosuvastatin 10 mg PO DAILY sod sulf-pot chloride-mag sulf 1.479-0.188- 0.225 gram (Sutab) PO PER PKG DIR tadalafil 20 mg PO ONCE PRN 30 days terazosin 10 mg PO BEDTIME 30 days ursodiol (BASIA Forte) 500 mg PO DAILY Tobacco use date assessed: 07/02/24 Fall risk assessment: No Falls in past year Last assessed Fall Risk: 10/08/24 Dental Screening Dental Screen Date: 07/02/24 [facility] Medical History Dry eye Vision changes Cystitis Weak urinary stream Left bundle branch block Paroxysmal atrial fibrillation Chronic prostatitis Surgical History Hx of colonoscopy History of cataract surgery History of lumbar surgery Family History Brother Colon cancer Non-small cell lung cancer Mother Stomach cancer Father Prostate CA Social History Household Members: None Housing: House Are you a primary direct care specialist to a significant other at home: No Do you presently have visiting nurse or other home services: No Alcohol intake: current Alcohol intake frequency: 0-2 drinks per day Comment: 1-2 glasses of wine QD Patient Tobacco Use Status: Never used Tobacco Tobacco use type: Cigarette Years Smoked: marijuana e-Cigarette/Vaping Use: Never Used Second Hand Smoke Exposure: No service: No 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 Mario Lee, Annabella Toscano, Gage Roberts and colleagues, with an educational malcolm from [employer]. Physical exam (Primary Care) Vital Signs: Last Vital Signs Pulse 75 10/08/24 10:02 BP 138/78 10/08/24 10:02 Pulse Ox 97 10/08/24 10:02 Oxygen Delivery Method Room Air 10/08/24 10:02 BMI result Body Mass Index 25.9 Tobacco/Smoking Status: Tobacco use Status Tobacco use date assessed 07/02/24 10/08/24 10:04 Patient Tobacco Use Status Never used Tobacco 10/08/24 10:04 Tobacco use type Cigarette 10/08/24 10:04 e-Cigarette/Vaping Use Never Used 10/08/24 10:04 Thrive Assessment: Date of Thrive Assessment Date Thrive assessed 07/02/24 10/08/24 10:04 Const General: alert; No acute distress Eyes Conjunctivae: conjunctivae normal Resp Auscultation: clear to auscultation bilaterally Cardio Rate: regular rate Rhythm: regular rhythm GI Inspection: Yes normal to inspection Extrem General: Yes normal to inspection and No edema Coding Level of Care Code Est Pt Level 4 (40534) Complex EM visit Add On G2211 Diagnoses Atherosclerosis of [place] coronary artery of transplanted heart without angina pectoris I25.811 Associated angina: without angina Coronary Disease-Associated Artery/Lesion type: [place] artery [place] vs. transplanted heart: transplanted heart Ascending aorta dilatation I77.810 Primary hypertension I10 Hypertension type: primary hypertension Hypercholesterolemia E78.00 Paroxysmal atrial fibrillation I48.0 Mild intermittent asthma without complication J45.20 Asthma complication type: uncomplicated Asthma persistence: intermittent Asthma severity: mild Benign prostatic hyperplasia with urinary frequency N40.1; R35.0 Lower urinary tract symptom detail: urinary frequency Lower urinary tract symptom presence: symptoms present Gastroesophageal reflux disease without esophagitis K21.9 Esophagitis presence: without esophagitis Assessment & Plan Assessment & Plan (1) Atherosclerotic heart disease: Comment: CT angio August 2022, echocardiogram July 2023 51% Code(s): I25.10 - Atherosclerotic heart disease of [place] coronary artery without angina pectoris Category: Medical Qualifiers: Associated angina: without angina Coronary Disease-Associated Artery/Lesion type: [place] artery [place] vs. transplanted heart: transplanted heart Qualified Code(s): I25.811 - Atherosclerosis of [place] coronary artery of transplanted heart without angina pectoris Plan: Control the cholesterol, weight, blood pressure, patient on anticoagulation with Eliquis last blood work was in May (2) Ascending aorta dilatation: Comment: 4.4 cm July 2023 Code(s): I77.810 - Thoracic aortic ectasia Category: Medical Plan: Control the blood pressure and cholesterol patient is on carvedilol rosuvastatin (3) Hypertension: Code(s): I10 - Essential (primary) hypertension Category: Medical Qualifiers: Hypertension type: primary hypertension Qualified Code(s): I10 - Essential (primary) hypertension Plan: Continue with blood pressure medication. Decrease salt intake and exercise on carvedilol 6.25 mg twice a day (4) Hypercholesterolemia: Code(s): E78.00 - Pure hypercholesterolemia, unspecified Category: Medical Plan: Avoid fried foods, chicken skin, eggs, butter margarine, pastries and meat. Be it pork or beef they have a lot of cholesterol with atherosclerosis LDL goal of less than 70 on rosuvastatin will need retesting (5) Paroxysmal atrial fibrillation: Comment: Status post radiofrequency ablation in 1993 and cryoablation in 2016 Code(s): I48.0 - Paroxysmal atrial fibrillation Category: Medical Plan: Continue with anticoagulation with Eliquis (6) Asthma: Code(s): J45.909 - Unspecified asthma, uncomplicated Category: Medical Qualifiers: Asthma complication type: uncomplicated Asthma persistence: intermittent Asthma severity: mild Qualified Code(s): J45.20 - Mild intermittent asthma, uncomplicated Plan: Patient on albuterol inhaler as needed (7) BPH (benign prostatic hyperplasia): Code(s): N40.0 - Benign prostatic hyperplasia without lower urinary tract symptoms Category: Medical Qualifiers: Lower urinary tract symptom detail: urinary frequency Lower urinary tract symptom presence: symptoms present Qualified Code(s): N40.1 - Benign prostatic hyperplasia with lower urinary tract symptoms; R35.0 - Frequency of micturition Plan: Follows up with urology on terazosin (8) GERD (gastroesophageal reflux disease): Code(s): K21.9 - Gastro-esophageal reflux disease without esophagitis Category: Medical Qualifiers: Esophagitis presence: without esophagitis Qualified Code(s): K21.9 - Gastro-esophageal reflux disease without esophagitis Plan: Avoid the foods that causes that usually spicy foods, tomato products, juices, coffee, soda and foods that your sensitive to. After eating do not lie down, allow 3-4 hours before in lie down. And keep the head of bed above 30 degrees to avoid the acid from going up. Plan History of Present Illness The patient is a 74-year-old male presenting for follow-up of his chronic medical conditions. Chief concerns include symptom management related to his antihypertensive regimen, including altered sensation in his extremities that he associates with newer cardiovascular medications, specifically apixaban and carvedilol. A consistent blood pressure regimen with carvedilol at 6.25 mg BID has been implemented due to hypertension controls. An LDL cholesterol level was previously reported at 94 mg/dL in April, with an objective to lower it further on rosuvastatin therapy. He has suggested an adverse physiological response including insomnia and soft stools, possibly due to his current m edication regimen. Despite adjustments and adherence to diet, he experiences frequent nocturnal awakenings for micturition. These challenges have emerged in the context of prior medical history that includes gastrointestinal and cardiac diagnoses. Follow-ups have been scheduled for cardiovascular and urological assessments to address these evolving issues. Health Maintenance - Colonoscopy results from June indicated normal colonic mucosa with internal hemorrhoids, no findings suggestive of malignancy. - LDL cholesterol management aimed at reducing levels to below 70 mg/dL with rosuvastatin. - Scheduled urology follow-up for interstitial cystitis management. - Monitoring of ascending aorta dilation, currently measuring 4.4 cm, with upcoming ultrasound. - Advised discontinuation of non-essential supplements: magnesium, probiotics, and omega-3 fish oil. Social History - Reports dietary habits include a mix of eggs, granola, and salads with limited intake of high-sugar or processed foods. - Substantial weight increase from 193 to 207 lbs over six months. Review of Systems - Cardiovascular: Reports intermittent blood pressure variations. - Neurological: Reports tingling sensation and numbness in toes and feet. - Gastrointestinal: Reports periodic diarrhea and consistently soft stools; denies nausea and vomiting. - Genitourinary: Reports nocturia, waking 4 times overnight. - Psychological: Reports significant sleep disturbances, specifically insomnia. Physical Exam - Cardiovascular- Palpable peripheral pulses in lower extremities indicate good perfusion. Results - Labs: Normal complete blood count, electrolytes, and renal function from May. - Cholesterol: LDL measured at 94 mg/dL in April. Plan The current treatment plan includes ongoing management of cardiovascular risk factors through carvedilol for hypertension and rosuvastatin for hypercholesterolemia. Blood pressure should be closely monitored, ensuring values remain within target range. To address nocturia and sleep disturbances, the patient was advised to limit fluid intake before bed. It was suggested to discontinue magnesium, probiotics, and omega-3 fish oil to determine their impact on gastrointestinal symptoms. An ultrasound has been planned to monitor the dilation of the ascending aorta. Collaborations with specialists will determine strategies to mitigate adverse effects from cardiovascular medications, particularly apixaban. Nerve testing will investigate extremity neuropathy, potentially linked to pharmacotherapy. Blood work will be conducted to evaluate overall health and lipid levels. These steps are part of a comprehensive effort to optimize health outcomes. Patient was informed and verbally consented to the use of an ambient scribe for clinic note documentation during this visit. Discussion Notes During this consultation, I discussed the patient's ongoing management of chronic conditions focusing on controlling cardiovascular risk factors and addressing side effects associated with prescribed medications. We explored potential gastrointestinal and neurological manifestations that may be linked to apixaban and carvedilol, considering their continued necessity given the patient's cardiac history. The patient was educated on narrowing unnecessary dietary supplements and the need for regular follow-ups to monitor his aortic dilation and overall cardiovascular status. Planned neurological testing will provide insights into sensory complaints. The proposed modifications to his medication regimen and lifestyle adjustments aim to address his symptoms while safeguarding against adverse cardiovascular events. Lab testing will continue to track treatment efficacy and adjust as needed, with collaborative efforts from his payroll coordinator and urologist. Patient Instructions - Continue taking prescribed carvedilol and rosuvastatin as directed. - Limit fluid intake at night to decrease nocturia. - Discontinue magnesium, probiotics, and omega-3 supplements to observe any changes in gastrointestinal symptoms. - Schedule and attend follow-up ultrasound for aortic dilation. - Prepare for nerve testing to investigate lower extremity sensations. - Monitor blood pressure at home and report any significant changes. - Discuss any concerns about medication side effects with your payroll coordinator. - Maintain a balanced diet and report weight changes. - Return for any worsening symptoms or new concerns. Orders: Orders NE nerve conduction velocity Today G62.9 - Polyneuropathy, unspecified NE electromyogram (EMG) Today G62.9 - Polyneuropathy, unspecified Medications: Discontinued magnesium oxide Discontinued Reason: Doctor's Order 500 mg PO DAILY 90 days 90 tabs 1RF E80.4 - Gilbert syndrome
== END 2024-10-08 11:02 | disposition home or self-care (01) ==
LOC: HO.HMCH 09:59
PROVIDERS: PCP Internal Medicine; Visit Provider Internal Medicine
DX: I25.811 Atherosclerosis of native coronary artery of transplanted heart without angina pectoris (principal); I77.810 Thoracic aortic ectasia; I48.0 Paroxysmal atrial fibrillation; I10 Essential (primary) hypertension; E78.00 Pure hypercholesterolemia, unspecified; J45.20 Mild intermittent asthma, uncomplicated; N40.1 Benign prostatic hyperplasia with lower urinary tract symptoms; R35.0 Frequency of micturition; K21.9 Gastro-esophageal reflux disease without esophagitis

== ENCOUNTER → 2024-10-08 09:59 | Outpatient (BNVA) | payer MEDICARE, SELFPAY | PROVIDERS: PCP Internal Medicine; Visit Provider Internal Medicine | DX: I25.811 Atherosclerosis of native coronary artery of transplanted heart without angina pectoris (principal); I77.810 Thoracic aortic ectasia; I10 Essential (primary) hypertension; E78.00 Pure hypercholesterolemia, unspecified; I48.0 Paroxysmal atrial fibrillation; J45.20 Mild intermittent asthma, uncomplicated; N40.1 Benign prostatic hyperplasia with lower urinary tract symptoms; R35.0 Frequency of micturition; K21.9 Gastro-esophageal reflux disease without esophagitis; Z79.01 Long term (current) use of anticoagulants; Z79.899 Other long term (current) drug therapy | CPT/HCPCS: 99212 ==

== ENCOUNTER 2024-10-21 08:10 | Outpatient (REF) | payer MEDICARE, SELFPAY ==
--- NOTE | 2024-10-21 08:13 | EMG_ITS ---
Bilateral tibial and peroneal motor studies were performed. Bilateral superficial peroneal, sural, and median and lateral plantar mixed sensory studies were performed. Tibial H reflexes were obtained, and paraspinal muscles were tested with a needle. 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 MD NETO Llanes/LARRY / [id number]
== END 2024-10-21 08:11 | disposition home or self-care (01) ==
LOC: HO.NEURO 08:10
PROVIDERS: PCP Internal Medicine; Visit Provider Internal Medicine
DX: G62.9 Polyneuropathy, unspecified (principal); M79.672 Pain in left foot; M79.671 Pain in right foot
CPT/HCPCS: 95886; 95913

== ENCOUNTER → 2024-11-05 09:47 | Outpatient (REF) | payer MEDICARE, SELFPAY ==
--- NOTE | 2024-11-05 09:49 | CA_ITS ---
Transthoracic Echocardiogram Patient (Last, First, Middle): Lio Briggs C Gender: Male Date of : 1950 Age: 74 Procedure Date: 11/05/2024 Procedure Type: Transthoracic Echocardiogram Location: OP Height: 190.5 cm Weight: 90.72 kg BSA: 2.19 m2 Heart Rate: bpm BP: 130 / 80 mmHg Tool/Die Maker: TO Referring MD: Waqas De Los Santos MD Adjunct Instructor Chemistry: Waqas De Los Santos MD Symptoms: I77.810 - Thoracic aortic ectasia Study Quality: Fair/Contrast ECG Rhythm: Sinus Conclusions: - 1. Low normal LV ejection fraction 50-55% with impaired relaxation filling pattern 2. Mildly dilated left atrium 3. Normal cardiac valvular Dopplers 4. Normal RV systolic pressure 5. Moderately dilated ascending aorta 6. No pericardial effusion Findings Procedure Information Contrast agent, definity, is being given per protocol without apparent complications. Left Ventricle Normal left ventricular cavity size. There is normal left ventricular wall thickness. The left ventricular systolic function is low normal. The visually estimated ejection fraction is between 50-55%. Spectral Doppler is indicative of an impaired relaxation filling pattern. E/E prime ratio is between 8 and 15 consistent with indeterminate filling pressures. Right Ventricle Normal right ventricular cavity size and systolic function. Atria The left atrium is mildly dilated. There is no evidence of interatrial shunt. The right atrium is normal in size. Aortic Valve Normal aortic valve structure and function. There is no aortic valve stenosis. There is no aortic valve regurgitation. Mitral Valve Normal mitral valve structure and function. There is trace mitral valve regurgitation. There is no mitral valve stenosis. Pulmonic Valve The pulmonic valve is likely normal. Tricuspid Valve Normal tricuspid valve structure. There is trace tricuspid valve regurgitation. The right ventricular systolic pressure is normal. The right ventricular systolic pressure is 16 mmHg. Normal right atrial pressure. There is no evidence of pulmonary hypertension. Great Vessels The pulmonary artery was not well visualized. There is moderate dilatation of the ascending aorta measuring 4.60 cm. Venous The inferior vena cava is normal in size and collapses greater than 50% with inspiration. Pericardium/Pleural There is no evidence of pericardial effusion. Prior Study Comparison Changes noted compared to prior study dated: 07/30/2023. ascending aorta is mildly enlarged to 4.6 cm Measurements 2D Linear Measurements IVSd: 1.01 0.6-0.9/0.6-1.0 cm LVIDd: 5.29 3.9-5.3/4.2-5.9 cm LVIDd Index: 2.42 2.4-3.2/2.2-3.1 cm/m2 LVIDs: 3.84 2.0-3.6 cm LVPWd: 0.97 0.7-1.1 cm LA Diam: 3.70 2.7-3.8/3.0-4.0 cm LAIDs Index: 1.69 1.5-2.3 cm/m2 LV Mass: 245.82 67-162/88-224 g LV Mass Index: 112.25 43-95/49-115 g/m2 LVOT Diam: 2.50 3.0+(-)1.3 cm 2D Systolic Function EF 4C: 56.30 >55% EF 2C: 50.50 >55% EF BiP: 52.10 >55% Mitral Valve MV Pk E: 0.52 MV PK A: 0.65 MV Decel Time: 229.00 E/A: 0.80 E'Lateral: 6.64 E'Medial: 3.81 E/E' Med: 13.60 E/E' Lat: 7.80 PHT: 67.00 MVA PHT: 3.28 Decel [place]: 2.26 Aortic Valve AoV Pk Manjeet: 1.09 AoV Mn Manjeet: 0.78 AoV VTI: 0.26 AoV Pk Grad: 5.00 Aov Mn Grad: 3.00 LUCINA Cont.VTI: 3.91 LVOT LVOT Pk Manjeet: 0.87 LVOT Mn Manjeet: 0.58 LVOT VTI: 0.21 LVOT Pk Grad: 3.00 LVOT Mn Grad: 2.00 LVOT Diam: 2.50 LVOT Area: 4.91 Diastolic Function MV Pk E: 0.52 MV Pk A: 0.65 E/A: 0.80 E'Medial: 3.81 E/E' Med: 13.60 E' Laterial: 6.64 E/E' Lat: 7.80 Right Ventricle TAPSE (mm): 18.70 TVS' Manjeet: 9.63 Tricuspid Valve TR Pk Manjeet: 1.79 TR Pk Grad: 13.00 RA Press: 3.00 RVSP: 16.00 Great Vessels Aorta Sinus of Valsalva: 4.16 2.0-3.[address] [place]: 3.52 1.7-3.4 cm Ao Asc: 4.60 2.1-3.4 cm Updated in Other Vendor System with Status of Final Waqas De Los Santos MD electronically signed on 11/06/2024 2:59:43 PM with status of Final
== END ==
LOC: HO.CARD 09:47
PROVIDERS: PCP Internal Medicine; Visit Provider Internal Medicine Cardiovascular Disease
DX: I77.810 Thoracic aortic ectasia (principal)
CPT/HCPCS: 93306; Q9957

== ENCOUNTER → 2024-11-05 09:49 | Outpatient (BNV) | payer MEDICARE, SELFPAY | PROVIDERS: PCP Internal Medicine; Visit Provider Internal Medicine Cardiovascular Disease | DX: I34.0 Nonrheumatic mitral (valve) insufficiency (principal); I77.810 Thoracic aortic ectasia | CPT/HCPCS: 93306 ==

== ENCOUNTER 2024-11-12 10:04 | Outpatient (REF) | payer MEDICARE, SELFPAY ==
[2024-11-12 11:29] LABS: MANUAL DIFF FLAG NO
[2024-11-12 11:37] LABS: Basophils Percent Auto 0.4 % (0-2); Eosinophils Absolute Auto 0.1 X10*3/uL (0.0-0.4); Eosinophils Percent Auto 2.4 % (0-4); Hematocrit 43.2 % (42.0-52.0); Hemoglobin 13.9 g/dl (14.0-18.0); Imm Gran Abs Auto 0.01 X10*3/uL (0.00-0.03); Imm Gran Pct Auto 0.2 % (0.0-0.4); Lymphocytes Absolute Auto 1.1 X10*3/uL (1.2-4.9); Lymphocytes Percent Auto 24.7 % (20-40); Mean Corpuscular HGB Conc 32.2 g/dl (31.0-36.0); Mean Corpuscular Hemoglobin 29.8 pg (27.0-33.0); Mean Corpuscular Volume 92.7 fL (80.0-98.0); Monocytes Absolute Auto 0.5 X10*3/uL (0.1-1.2); Monocytes Percent Auto 11.8 % (2-11); Neutrophils Absolute Auto 2.7 x10*3/uL (2.0-8.3); Neutrophils Percent Auto 60.5 % (45-73); Platelet Count 228 X10*3/uL (160-400); Red Blood Count 4.66 X10*6/uL (4.60-5.80); Red Cell Distribution Width 12.4 % (11.0-16.0); White Blood Count 4.5 X10*3/uL (4.8-10.8)
[2024-11-12 11:43] LABS: Estimated Average Glucose 108 mg/dL; Hemoglobin A1C 131.4109 umol/L; Hemoglobin A1c % 5.4 % (<6.0); Total Hemoglobin (HGBA1C) 3671.2874 umol/L
[2024-11-12 12:10] LABS: B Type Natriuretic Peptide 104 pg/mL (<100)
[2024-11-12 12:41] LABS: Erythrocyte Sedimentation Rate 8 MM/HR (0-15)
[2024-11-12 13:54] LABS: Folate 13.6 ng/mL (> or = 4.0); Vitamin B12 696 pg/mL (200-900)
[2024-11-12 13:59] LABS: Rheumatoid Factor < 13.0 IU/mL (<15.0)
[2024-11-12 14:45] LABS: Anion Gap 11 (12-20); Blood Urea Nitrogen 19 mg/dL (9-16); Calcium 8.9 mg/dL (8.4-10.2); Carbon Dioxide 27 mmol/L (22-29); Chloride 106 mmol/L (96-108); Estimated Glomerular Filt Rate > 60; Glucose Random 94 mg/dL (60-115); Potassium 4.7 mmol/L (3.3-5.1); Sodium 139 mmol/L (135-145)
[2024-11-12 14:54] LABS: Free T4 (Free Thyroxine) 1.01 ng/dL (0.71-1.85)
[2024-11-12 15:11] LABS: Alanine Aminotransferase 20 U/L (0-40); Alkaline Phosphatase 114 U/L (39-117); Anion Gap 11 (12-20); Aspartate Amino Transferase 23 U/L (5-37); Bilirubin Total 1.8 mg/dL (0.0-1.0); Blood Urea Nitrogen 19 mg/dL (9-16); Calcium 8.7 mg/dL (8.4-10.2); Carbon Dioxide 28 mmol/L (22-29); Chloride 107 mmol/L (96-108); Cholesterol 121 mg/dL (<200); Estimated Glomerular Filt Rate > 60; Glucose Random 93 mg/dL (60-115); HDL Cholesterol 50 mg/dL (>40); LDL Cholesterol Calculated 55 mg/dL (<100); Magnesium 2.1 mg/dL (1.6-2.6); Potassium 4.7 mmol/L (3.3-5.1); Sodium 141 mmol/L (135-145); Total Protein 7.2 g/dL (6.5-8.0); Triglycerides 84 mg/dL (<150)
[2024-11-12 15:22] LABS: Ferritin 48 ng/mL (20-250); Thyroid Stimulating Hormone 1.94 uIU/mL (0.32-4.0)
[2024-11-13 04:30] LABS: HBS Num1 0.29 mIU/mL (0-7.99); HBc Num1 0.09 S/CO (0.00-0.79); HBsAGNum1 0.38 S/CO (0.00-0.99); HIV AB/AG Nonreactive (Nonreactive); HIV Num 1 0.09 S/CO (0.00-0.99); Hepatitis B Core Antibody Nonreactive (Nonreactive); Hepatitis B Surface Antigen Negative (Negative); ~HepC Num1 0.13 S/CO (0.00-0.79); ~Hepatitis B Surface Antibody NONREACTIVE (Nonreactive); ~Hepatitis C Antibody Nonreactive (Nonreactive)
[2024-11-13 18:37] LABS: Lyme Abs Screen <0.90 index
[2024-11-13 19:04] LABS: Homocysteine 7.7 umol/L (< or = 15.2)
[2024-11-13 22:04] LABS: Prot Elec - Albumin 3.7 g/dL (3.8-4.8); Prot Elec - Alpha1 0.3 g/dL (0.2-0.3); Prot Elec - Alpha2 0.6 g/dL (0.5-0.9); Prot Elec - Beta 1 0.5 g/dL (0.4-0.6); Prot Elec - Beta 2 0.4 g/dL (0.2-0.5); Prot Elec - Gamma 1.1 g/dL (0.8-1.7); Prot Elec - Total Protein 6.5 g/dL (6.1-8.1)
[2024-11-13 23:19] LABS: Antibody to SS-A Antigen <1.0 NEG AI (<1.0 NEG); Antibody to SS-B Antigen <1.0 NEG AI (<1.0 NEG)
[2024-11-15 19:33] LABS: Methylmalonic Acid 190 nmol/L (69-390)
[2024-11-16 13:34] LABS: Anti Nuclear Antibody Pattern Nuclear, Speckled; Anti Nuclear Antibody Screen POSITIVE (NEGATIVE); Anti Nuclear Antibody Titer 1:40 titer
== END 2024-11-12 10:05 | disposition home or self-care (01) ==
LOC: HO.LAB 10:04
PROVIDERS: Internal Medicine Medical Oncology; PCP Internal Medicine; Visit Provider Internal Medicine Cardiovascular Disease
DX: I71.21 Aneurysm of the ascending aorta, without rupture (principal); I48.0 Paroxysmal atrial fibrillation; I25.811 Atherosclerosis of native coronary artery of transplanted heart without angina pectoris; I44.7 Left bundle-branch block, unspecified; D64.9 Anemia, unspecified; G57.93 Unspecified mononeuropathy of bilateral lower limbs; R79.89 Other specified abnormal findings of blood chemistry; E78.00 Pure hypercholesterolemia, unspecified; T14.8XXA Other injury of unspecified body region, initial encounter; W57.XXXA Bitten or stung by nonvenomous insect and other nonvenomous arthropods, initial encounter
CPT/HCPCS: 36415; 80048; 80053; 80061; 82607; 82728; 82746; 83036; 83090; 83735; 83880; 83921; 84165; 84439; 84443; 85025; 85652; 86038; 86039; 86235; 86431; 86617; 86618; 86704; 86706; 86803; 87340; 87389; 93005; 99212

== ENCOUNTER 2024-11-12 10:04 | Outpatient (AMB) | payer MEDICARE, SELFPAY ==
--- NOTE | 2024-11-12 10:32 | MHC.OFFVIS ---
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: No Allergies LUCRECIA Inhibitors Allergy (Intermediate, Verified 10/08/24 10:03) Hyperkalemia Medication List - Last Reconciled 11/12/24 by Waqas De Los Santos MD albuterol sulfate 90 mcg/actuation (Ventolin HFA) 2 puffs inhalation Q6H PRN apixaban (Eliquis) 5 mg PO BID 90 days carvedilol 6.25 mg PO Q12H 90 days cholecalciferol (vitamin D3) 250 mcg PO DAILY cyanocobalamin (vitamin B-12) 1,000 mcg PO DAILY glucosamine HCl 500 mg PO DAILY multivitamin 1 tab PO DAILY polyvinyl alcohol 1.4% (Artificial Tears (polyvinyl alcohol)) 1 drp ophthalmic (eye) BID-QID PRN psyllium husk (Metamucil) 0.8 grams (2 x 0.4 gram) PO BEDTIME PRN rosuvastatin 10 mg PO DAILY tadalafil 20 mg PO ONCE PRN 30 days terazosin 10 mg PO BEDTIME 30 days ursodiol (BASIA Forte) 500 mg PO DAILY HPI Comments Details: Lio comes for follow-up. Complains of numbness in his right leg diagnose with neuropathy. Patient has no cardiac symptoms. Recent echocardiogram shows moderately enlarged ascending aorta at 4.6 respiratory slightly more enlarged. No prolonged palpitation irregular heartbeat. Blood pressure is labile but overall better controlled and in the past. No lightheadedness, syncope. Drinks adequate amount of fluid. No bleeding issues or neurologic events [facility] Medical History Dry eye Vision changes Cystitis Weak urinary stream Left bundle branch block Paroxysmal atrial fibrillation Chronic prostatitis Surgical History Hx of colonoscopy History of cataract surgery History of lumbar surgery Family History Brother Colon cancer Non-small cell lung cancer Mother Stomach cancer Father Prostate CA Social History Household Members: None Housing: House Are you a primary medicare nurse to a significant other at home: No Do you presently have visiting nurse or other home services: No Alcohol intake: current Alcohol intake frequency: 0-2 drinks per day Comment: 1-2 glasses of wine QD Patient Tobacco Use Status: Never used Tobacco Tobacco use type: Cigarette Years Smoked: marijuana e-Cigarette/Vaping Use: Never Used Second Hand Smoke Exposure: No service: No 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: No Hearing needs: No Vision needs: No Review of Systems Const Denies chills, Denies fatigue, Denies fever(s), Denies frequent falls, Denies weakness, Denies weight gain and Denies weight loss ENT Denies dizziness Card Denies chest pain, Denies leg edema, Denies lightheadedness, Denies palpitations, Denies dyspnea, Denies dyspnea on exertion, Denies orthopnea and Denies other (loss of consciousness) Resp Denies cough, Denies dyspnea and Denies dyspnea on exertion GI Denies hematochezia and Denies change in stool character Musc Denies abnormal gait, Denies muscle weakness, Denies numbness, Denies radiating pain into limb and Denies tingling Neuro Denies Abnormal speech present, Denies abnormal gait, Denies dizziness, Denies frequent falls, Denies numbness, Denies tingling and Denies weakness Endo Denies fatigue and Denies palpitations Physical Exam Vital Signs: Last Vital Signs Pulse 58 11/12/24 10:33 BP 110/70 11/12/24 10:33 BMI result Body Mass Index 27.0 Const General: cooperative, comfortable, no acute distress, alert, awake and Physically active Nutritional Appearance: thin Orientation/consciousness: patient oriented x3 Limitations: no limitations HEENT Head: Yes normocephalic and Yes atraumatic Neck Neck: Yes trachea midline, Yes supple and Yes no JVD Resp Effort & Inspection: normal respiratory effort Auscultation: clear to auscultation bilaterally Cardio Jugular venous distension: no JVD Palpation: normal PMI Rate: regular rate Rhythm: regular rhythm Heart sounds: S1 normal heart sound present, S2 normal heart sound present, no click, no gallops, no murmurs and no rubs GI Auscultation: normal bowel sounds Skin General skin exam: no rashes or lesions noted Neuro General: patient oriented x3 and no focal motor deficits Speech: No Abnormal speech present Extrem General: Yes no clubbing, cyanosis or edema Psych Appearance: grossly normal Office Procedures EKG Details: EKG shows sinus bradycardia with no left bundle-branch block with nonspecific ST T wave changes 19771-[id number], Complete Assessment & Plan Assessment & Plan (1) Ascending aortic aneurysm: Code(s): I71.21 - Aneurysm of the ascending aorta, without rupture Category: Medical Plan: Ascending aortic aneurysm which is moderately enlarged on recent echocardiogram. Slight progression noted. Will refer him to [facility] for evaluation for genetic thoracic aortic disease. If present his surgical repair with. 5 cm otherwise well will pursue management to 5.5 cm we discussed about aggressive blood pressure control. Also discussed about avoidance of sudden strenuous isometric exercise. (2) Paroxysmal atrial fibrillation: Comment: Status post radiofrequency ablation in 1993 and cryoablation in 2016 Code(s): I48.0 - Paroxysmal atrial fibrillation Category: Medical Plan: Paroxysmal atrial fibrillation which has remained suppressed after ablation. Currently on carvedilol therapy. Continue the same. Continue rhythm control approach. Continue full oral anticoagulation, currently on Eliquis 5 mg b.i.d.. Semi annual renal function test should be pursued. (3) Atherosclerotic heart disease: Comment: CT angio August 2022, echocardiogram July 2023 51% Code(s): I25.10 - Atherosclerotic heart disease of [place] coronary artery without angina pectoris Category: Medical Qualifiers: Associated angina: without angina Coronary Disease-Associated Artery/Lesion type: [place] artery [place] vs. transplanted heart: transplanted heart Qualified Code(s): I25.811 - Atherosclerosis of [place] coronary artery of transplanted heart without angina pectoris Plan: Atherosclerotic heart disease. Continue aggressive medical management. Continue statin therapy with target goal LDL less than 70 mg/dL. Blood pressure is borderline but labile and adequately controlled. Importance of good blood pressure control was discussed. Low-salt diet was discussed. Advised to maintain adequate hydration and orthostatic precautions were discussed. Will follow up in the clinic in 1 year's time after echocardiogram. Thank you for allowing me to partake in his care Orders: Orders CA echo transthoracic complete 1 Year I71.21 - Aneurysm of the ascending aorta, without rupture Basic Metabolic Panel Today I48.0 - Paroxysmal atrial fibrillation Referrals Genetics Referral I71.21 - Aneurysm of the ascending aorta, without rupture Coding Level of Care Code Est Pt Level 4 (45420) Complex EM visit Add On G2211 Diagnoses Ascending aortic aneurysm I71.21 Paroxysmal atrial fibrillation I48.0 Atherosclerosis of [place] coronary artery of transplanted heart without angina pectoris I25.811 Associated angina: without angina Coronary Disease-Associated Artery/Lesion type: [place] artery [place] vs. transplanted heart: transplanted heart CPT Codes EKG - CPT: 80449-[id number], Complete ([id number])
[2024-11-12 10:33] VITALS: BP 110/70; PULSE 58; BMI 27.0
== END 2024-11-12 11:02 | disposition home or self-care (01) ==
LOC: HO.HCS 10:05
PROVIDERS: PCP Internal Medicine; Visit Provider Internal Medicine Cardiovascular Disease
DX: I71.21 Aneurysm of the ascending aorta, without rupture (principal); I48.0 Paroxysmal atrial fibrillation; I25.811 Atherosclerosis of native coronary artery of transplanted heart without angina pectoris
CPT/HCPCS: 93010; 99214; G2211

== ENCOUNTER 2024-12-24 07:53 | Outpatient (AMB) | payer MEDICARE, SELFPAY ==
--- NOTE | 2024-12-24 07:53 | MHC.OFFVIS ---
Vital Signs 12/24/24 07:56 Height 6 ft 3 in Weight 197 lb BMI 24.6 BP 124/82 Blood Pressure Location Rt brachial Position Sitting Intake Visit Reasons: INP-Unsp mononeuropathy of bilateral lower limbs Intake Note: Patient referred inhouse Dr. Yusuf for neuropathic bilateral leg pain Allergies LUCRECIA Inhibitors Allergy (Intermediate, Verified 12/24/24 07:57) Hyperkalemia Medication List - Last Reconciled 12/24/24 by Joy Stark MD alpha lipoic acid 600 mg PO DAILY apixaban (Eliquis) 5 mg PO BID 90 days carvedilol 6.25 mg PO Q12H 90 days cholecalciferol (vitamin D3) 250 mcg PO DAILY glucosamine HCl 500 mg PO DAILY multivitamin 1 tab PO DAILY polyvinyl alcohol 1.4% (Artificial Tears (polyvinyl alcohol)) 1 drp ophthalmic (eye) BID-QID PRN psyllium husk (Metamucil) 0.8 grams (2 x 0.4 gram) PO BEDTIME PRN rosuvastatin 10 mg PO DAILY tadalafil 20 mg PO ONCE PRN 30 days terazosin 10 mg PO BEDTIME 30 days ursodiol (BASIA Forte) 500 mg PO DAILY HPI Comments Details: 74y/o male comes for further evaluation of neuropathy. He reports tingling and numbness in his right LE- below ankle - predominantly foot and episodically in his left foot.No weakness. No recent gait issues. He has had numbness tingling since 2004 he had back surgery when he was in [place] L5-S1 . But the symptoms have worsened recently. The symptoms are worse when sitting down and during the later part of the day and wakes him up from sleep.Rubbing or moving stretching helps.No known family h/o neuropathy. 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 [facility] Medical History (Updated 12/24/24 @ 10:35 by Joy Stark MD) Restless legs syndrome (RLS) Peripheral neuropathy Dry eye Vision changes Cystitis Weak urinary stream Left bundle branch block Paroxysmal atrial fibrillation Chronic prostatitis Surgical History Hx of colonoscopy History of cataract surgery History of lumbar surgery Family History Brother Colon cancer Non-small cell lung cancer Mother Stomach cancer Father Prostate CA Social History Household Members: None Housing: House Are you a primary respiratory care program director to a significant other at home: No Do you presently have visiting nurse or other home services: No Alcohol intake: current Alcohol intake frequency: 0-2 drinks per day Comment: 1-2 glasses of wine QD Patient Tobacco Use Status: Never used Tobacco Tobacco use type: Cigarette Years Smoked: marijuana e-Cigarette/Vaping Use: Never Used Second Hand Smoke Exposure: No service: No 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: No Hearing needs: No Vision needs: No Physical Exam Vital Signs: Last Vital Signs BP 124/82 12/24/24 07:56 BMI result Body Mass Index 24.6 Const General: cooperative, healthy appearing, comfortable and no acute distress Nutritional Appearance: average body habitus Orientation/consciousness: patient oriented x3 Eyes Pupils: Equal, round and reactive pupils present Neuro Other: Decreased Light touch in distal Right foot and lower third of the leg No atrophy or fasciculation High arched feet General: patient oriented x3, gait normal, tone normal, moves all extremities and no focal motor deficits Cranial nerves: Yes Facial sensation intact/muscles of mastication intact, Yes Equal, round and reactive pupils present, Yes Bilaterally intact EOM present, Yes Nystagmus not present, Yes Normal facial strength present, Yes Midline tongue present, Yes Symmetric palate elevation present and Yes Ability to bilaterally elevate shoulders present Cognition (Neuro): normal cognition Gait exam (Neuro): Normal gait present Motor exam (neuro): 5/5 motor strength present throughout and Normal motor muscle tone present throughout Deep tendon reflexes (DTR's): Right triceps reflex intensity grade: 1+, Left triceps reflex intensity grade: 1+, Rt Biceps (C5, C6): 1+, Left biceps reflex intensity grade: 1+, Right brachioradialis reflex intensity grade: 1+, Left brachioradialis reflex intensity grade: 1+, Right patellar reflex intensity grade: 0, Left patellar reflex intensity grade: 1+, Right ankle reflex intensity grade: 0 and Left ankle reflex intensity grade: 0 Coordination: [id number] test normal Results Reviewed Results Reviewed: EMG /NCS 10/17 IMPRESSION: 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 Assessment & Plan Assessment & Plan (1) Peripheral neuropathy: Comment: likley hereditary neuropathy Code(s): G62.9 - Polyneuropathy, unspecified Category: Medical Qualifiers: Peripheral neuropathy type: polyneuropathy, unspecified Qualified Code(s): G62.9 - Polyneuropathy, unspecified (2) Restless legs syndrome (RLS): Code(s): G25.81 - Restless legs syndrome Category: Medical Plan Reviewed labs I will trial him on gabapentin 600mg qhs for RLS and alpha lipoic acid 600mg for enuropathy Repeat EMG in 1 year Medications: New alpha lipoic acid 600 mg PO DAILY 30 caps 6RF gabapentin 100 mg PO BEDTIME 30 caps 6RF Coding Level of Care Code New Pt Level 4 (50505) Diagnoses Peripheral polyneuropathy G62.9 Peripheral neuropathy type: polyneuropathy, unspecified Restless legs syndrome (RLS) G25.81
[2024-12-24 07:56] VITALS: BP 124/82; BMI 24.6
== END 2024-12-24 08:25 | disposition home or self-care (01) ==
LOC: HO.HSMS 07:53
PROVIDERS: PCP Internal Medicine; Visit Provider Psychiatry & Neurology Neurology
DX: G62.9 Polyneuropathy, unspecified (principal); G25.81 Restless legs syndrome
CPT/HCPCS: 99204

== ENCOUNTER → 2024-12-24 07:53 | Outpatient (BNVA) | payer MEDICARE, SELFPAY | PROVIDERS: PCP Internal Medicine; Visit Provider Psychiatry & Neurology Neurology | DX: G25.81 Restless legs syndrome (principal); G62.9 Polyneuropathy, unspecified | CPT/HCPCS: 99202 ==

== ENCOUNTER → 2025-01-01 09:29 | Outpatient (BNVA) | payer MEDICARE, SELFPAY | PROVIDERS: PCP Internal Medicine; Visit Provider Urology | DX: N40.1 Benign prostatic hyperplasia with lower urinary tract symptoms (principal); R35.0 Frequency of micturition; N52.9 Male erectile dysfunction, unspecified | CPT/HCPCS: 99212 ==

== ENCOUNTER 2025-02-04 08:45 | Outpatient (AMB) | payer MEDICARE, SELFPAY ==
--- OUTSIDE RECORDS SUMMARY | 2025-02-04 09:01 | XMS_ITS | Clinical Summary ---
Author Organization [facility] Address [address] [place] [id number] Phone Care Team Providers Care Commercial Construction Superintendent Name Role Phone Pcp, Unknown Primary Care Provider Unavailabl e Social History Tobacco Use Types Packs/Day Years Used Date Smoking Tobacco: Never Assessed Education Answer Date Recorded Are you interested in more education? Not on ruperto e 10/20/2022 Are you concerned about learning? Not on file 10/20/2022 No 10/20/2022 No 10/20/2022 Digital Access Answer Date Recorded No 11/18/2022 No 11/18/2022 No 11/18/2022 Reliable internet access at home? Not on file 11/18/2022 Device with a working camera? Not on file Sex and Gender Information Value Date Recorded Sex Assigned at Male 06/29/2020 8:46 AM EST Legal Sex Male 2:25 PM EDT Gender Identity Male 06/29/2020 8:47 AM EST Sexual Orientation Straight 06/29/2020 8: 47 AM EST Plan of Treatment Health Maintenance Due Date Last Done Comments Adult Td,Tdap Booster 1950 LIPID PANEL 1952 DEPRESSION SCREENING 1964 SMOKING Hx and SMOKELESS TOB ACCO SCREENING 01/24/1965 HEPATITIS C SCREENING 01/24/1970 COLOGUARD 01/24/1997 COLONOSCOPY 01/24/1997 COLORECTAL CANCER SCREENING 01/24/1997 FIT TEST 01/24/1997 FOBT 01/24/1997 SIGMOIDOSCOPY 01/24/1997 VIRTUAL COLONOSCOPY 01/24/1997 PNEUMOCOCCAL VACCINES (50+ y ears) (1 of 1 - PCV) 01/24/2002 ZOSTER VACCINES (1 of 2) 01/24/2002 COVID-19 VACCINE (2 - 2023-2 5 season) 2024 06/10/2021 RSV VACCINE (1 - 1-dose 75+ series) 01/24/2027 HEPATITIS A VACCINES Aged Out No long er eligible based on patient's age to complete this topic HIB VACCINES Aged Out No longer eligi ble based on patient's age to complete this topic MENINGOCOCCAL VACCINES (ACWY) Aged Out No longer eligible based on patient's age to complete this topic MENINGOCOCCAL VACCINES (B) Aged Out N o longer eligible based on patient's age to complete this topic Medical Devices Not on file Care Teams Commercial Construction Superintendent Relationship Specialty Start Date End Date Pcp, Unknown PCP - General 04/19/20 Additional Source Comments The information contained in this document represents components of the legal health record. It is not the complete legal health record[facility]
--- NOTE | 2025-02-04 09:06 | A.OFFPC_ITS ---
Vital Signs 02/04/25 09:09 Height 6 ft 3 in Weight 195 lb 4 oz BMI 24.4 BP 112/70 Blood Pressure Location Lt brachial Position Sitting Pulse 67 Pulse Source Pulse Oximeter Temp 97.1 F Temp Source Temporal Artery Scan Pulse Oximetry (%) 98 Oxygen Delivery Method Room Air Intake Visit Reasons: CAD, HTN, peripheral neuropathy Intake Note: Patient is here to follow up on CAD, HTN, Peripheral neuropathy. Box Icer Required: No Poured Pipe Maker: Not Required per policy Accompanied by: Self / Same As Patient Allergies LUCRECIA Inhibitors Allergy (Intermediate, Verified 02/04/25 09:09) Hyperkalemia Medication List - Last Reconciled 02/04/25 by Shira Yusuf MD alpha lipoic acid 600 mg PO DAILY apixaban (Eliquis) 5 mg PO BID 90 days carvedilol 6.25 mg PO Q12H 90 days cholecalciferol (vitamin D3) 250 mcg PO DAILY gabapentin 100 mg PO BEDTIME glucosamine HCl 500 mg PO DAILY multivitamin 1 tab PO DAILY polyvinyl alcohol 1.4% (Artificial Tears (polyvinyl alcohol)) 1 drp ophthalmic (eye) BID-QID PRN psyllium husk (Metamucil) 0.8 grams (2 x 0.4 gram) PO BEDTIME PRN rosuvastatin 10 mg PO DAILY tadalafil 20 mg PO ONCE PRN 30 days terazosin 10 mg PO BEDTIME 90 days ursodiol (BASIA Forte) 500 mg PO DAILY Tobacco use date assessed: 02/04/25 Fall risk assessment: No Falls in past year Last assessed Fall Risk: 02/04/25 Dental Screening Dental Screen Date: 07/02/24 HPI CAD, HTN, peripheral neuropathy HPI Details History of Present Illness The patient is a 75-year-old male presenting with a follow-up visit. The patient has a history of atherosclerotic heart disease and has been advised to follow up with cardiology. An echocardiogram in October 2024 revealed a moderately enlarged ascending aorta measuring 4.6 cm, and the patient was advised to seek evaluation for genetic thoracic aortic disease. The patient has a history of atrial fibrillation, with ablations performed in 1993 and 2016. The patient is currently on carvedilol and Eliquis, with regular blood work to monitor renal function. The patient has been diagnosed with polyneuropathy, likely hereditary, and has been advised to take gabapentin 600 mg at bedtime and alpha-lipoic acid 600 mg daily. The patient has a history of benign prostatic hyperplasia and is on tadalafil and terazosin. The patient was advised to increase the dose of tadalafil while continuing terazosin. The patient has a history of degenerative disc disease, hypertension, hypercholesterolemia, asthma, and gastroesophageal reflux disease. Recent blood work in October 2024 showed very mild anemia with a hemoglobin level of 13.9 g/dL, normal electrolytes, good renal function, normal blood sugar, and normal liver function tests. Cholesterol levels were well-controlled with an LDL of 55 mg/dL and triglycerides of 84 mg/dL. Health Maintenance - Up to date with colonoscopy Social History Review of Systems Physical Exam Results - Echocardiogram: Moderately enlarged as cending aorta to 4.6 cm - Blood work (October 2024): Mild anemia wit h hemoglobin 13.9 g/dL, normal electrolytes, good renal function, normal blood sugar, normal liver function tests, LDL 55 mg/dL, triglycerides 84 mg/dL Plan The patient will continue to follow up with cardiology for management of atherosclerotic heart disease and monitoring of the moderately enlarged ascending aorta. Evaluation by genetic specialists for thoracic aortic disease is recommended. For atrial fibrillation, the patient will continue on carvedilol and Eliquis, with regular blood work to monitor renal function. Management of polyneuropathy includes gabapentin 600 mg at bedtime and alpha-li poic acid 600 mg daily. For benign prostatic hyperplasia, the patient is advised to increase the dose of tadalafil while continuing terazosin. Patient was informed and verbally consented to the use of an ambient scribe for clinic note documentation during this visit. Discussion Notes Patient Instructions [facility] Medical History (Updated 02/04/25 @ 09:46 by Shira Yusuf MD) Restless legs syndrome (RLS) Peripheral neuropathy Dry eye Vision changes Cystitis Weak urinary stream Left bundle branch block Paroxysmal atrial fibrillation Chronic prostatitis Surgical History Hx of colonoscopy History of cataract surgery History of lumbar surgery Family History Brother Colon cancer Non-small cell lung cancer Mother Stomach cancer Father Prostate CA Social History (Updated 02/04/25 @ 09:12 by SAMEER Aguiar) Household Members: None Housing: House Are you a primary resident care manager rn to a significant other at home: No Do you presently have visiting nurse or other home services: No Alcohol intake: current Alcohol intake frequency: holidays/special occasions only Comment: 1-2 glasses of wine QD Patient Tobacco Use Status: Never used Tobacco Tobacco use type: Cigarette Years Smoked: marijuana e-Cigarette/Vaping Use: Never Used Second Hand Smoke Exposure: No service: No 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 1. Little interest or pleasure in doing things: not at all 2. Feeling down, depressed, or hopeless: not at all 3. Trouble falling or staying asleep, or sleeping too much: several days 4. Feeling tired or having little energy: several days 5. Poor appetite or overeating: not at all 6. Feeling bad about yourself - or that you are a failure or have let yourself or your family down: not at all 7. Trouble concentrating on things, such as reading the newspaper or watching television: not at all 8. Moving or speaking so slowly that other people could have noticed. Or the opposite - being so fidgety or restless that you have been moving around a lot more than usual: not at all 9. Thoughts that you would be better off or of hurting yourself in some way: not at all Total score: 2 Depression Screening Interpretation: Positive Depression Screening Done: Yes Source: Developed by Drs. Mario Lee, Annabella Toscano, Gage Roberts and colleagues, with an educational malcolm from [employer]. Thrive Questionnaire Date Thrive assessed: 01/28/25 I am a: Patient What is your living situation today?: I have a steady place to live Within the past 12 months, did the food you bought not last and you didn't have the money to get more?: Never true Within the past 12 months, did you worry whether your food would run out before you got money to buy more?: Never true Do you have trouble paying for medicines?: No Do you have trouble getting transportation to medical appointments?: No Do you have trouble paying your heating and electricity bill?: No Do you have trouble taking care of your child, family member or friend?: No Do you have trouble with day-to-day activities such as bathing, preparing meals, shopping, managing finances, etc.?: No Are you currently unemployed and looking for a job?: No Are you interested in more education?: No Please select the resources that you would like help with: None Currently or been in a relationship where the following occur: No concerns reported THRIVE Score: 0 AUDIT C Alcohol Use Questionnaire (AUDIT-C) 1. How often do you have a drink containing alcohol?: Monthly or less Total Score: 1 NEMO-7 AMB Questionnaire NEMO-7 Date NEMO - 7 assessed: 02/04/25 Feeling nervous, anxious, or on edge: 1 = Several days Not being able to stop or control worryin = Several days Worrying too much about different things: 1 = Several days Trouble relaxin = Several days Being so restless that it is hard to sit still: 1 = Several days Becoming easily annoyed or irritable: 1 = Several days Feeling afraid as if something awful might happen: 0 = Not at all Total NEMO-7 score (0-4 normal; 5-9 mild; 10-14 moderate; 15-21 severe): 6 Source: Developed by Drs. Mario Lee, Annabella Toscnao, Gage Roberts and colleagues, with an educational malcolm from [employer]. Physical exam (Primary Care) Vital Signs: Last Vital Signs Temp 97.1 F 02/04/25 09:09 Pulse 67 02/04/25 09:09 BP 112/70 02/04/25 09:09 Pulse Ox 98 02/04/25 09:09 Oxygen Delivery Method Room Air 02/04/25 09:09 BMI result Body Mass Index 24.4 Tobacco/Smoking Status: Tobacco use Status Tobacco use date assessed 02/04/25 02/04/25 09:13 Patient Tobacco Use Status Never used Tobacco 02/04/25 09:13 Tobacco use type Cigarette 02/04/25 09:13 e-Cigarette/Vaping Use Never Used 02/04/25 09:13 PHQ-9: PHQ-9 Score PHQ-9: Total score 2 02/04/25 09:33 Depression Screening Interpretation: Positive Thrive Assessment: Date of Thrive Assessment Date Thrive assessed 01/28/25 02/04/25 09:13 Currently or been in a relationship where the following occur: No concerns reported Const General: alert; No acute distress Eyes Conjunctivae: conjunctivae normal Resp Auscultation: clear to auscultation bilaterally Cardio Rate: regular rate Rhythm: regular rhythm GI Inspection: Yes normal to inspection Extrem General: Yes normal to inspection and No edema Coding Level of Care Code Est Pt Level 4 (84956) Complex EM visit Add On G2211 Diagnoses Atherosclerosis of enterprise coronary artery of transplanted heart without angina pectoris I25.811 Associated angina: without angina Coronary Disease-Associated Artery/Lesion type: enterprise artery [place] vs. transplanted heart: transplanted heart Primary hypertension I10 Hypertension type: primary hypertension Paroxysmal atrial fibrillation I48.0 Ascending aortic aneurysm I71.21 Hypercholesterolemia E78.00 Gastroesophageal reflux disease without esophagitis K21.9 Esophagitis presence: without esophagitis Benign prostatic hyperplasia with urinary frequency N40.1; R35.0 Lower urinary tract symptom detail: urinary frequency Lower urinary tract symptom presence: symptoms present Lumbar degenerative disc disease M51.36 Neuropathic pain, leg, bilateral G57.93 Mild intermittent asthma without complication J45.20 Asthma complication type: uncomplicated Asthma persistence: intermittent Asthma severity: mild Plantar wart of right foot B07.0 Assessment & Plan Assessment & Plan (1) Atherosclerotic heart disease: Comment: CT angio August 2022, echocardiogram July 2023 51% Code(s): I25.10 - Atherosclerotic heart disease of enterprise coronary artery without angina pectoris Category: Medical Qualifiers: Associated angina: without angina Coronary Disease-Associated Artery/Lesion type: enterprise artery [place] vs. transplanted heart: transplanted heart Qualified Code(s): I25.811 - Atherosclerosis of enterprise coronary artery of transplanted heart without angina pectoris Plan: Control the cholesterol, weight, blood pressure, patient is on anticoagulation twice a day year blood work requested (2) Hypertension: Code(s): I10 - Essential (primary) hypertension Category: Medical Qualifiers: Hypertension type: primary hypertension Qualified Code(s): I10 - Essential (primary) hypertension Plan: Continue with blood pressure medication. Decrease salt intake and exercise on carvedilol 6.25 mg twice a day (3) Paroxysmal atrial fibrillation: Comment: Status post radiofrequency ablation in 1993 and cryoablation in 2016 Code(s): I48.0 - Paroxysmal atrial fibrillation Category: Medical Plan: Continue with anticoagulation (4) Ascending aortic aneurysm: Code(s): I71.21 - Aneurysm of the ascending aorta, without rupture Category: Medical Plan: This is presently being monitored 4.6 cm was the last 1. Patient was sent for genetic testing by Cardiology (5) Hypercholesterolemia: Code(s): E78.00 - Pure hypercholesterolemia, unspecified Category: Medical Plan: Avoid fried foods, chicken skin, eggs, butter margarine, pastries and meat. Be it pork or beef they have a lot of cholesterol LDL goal of less than 70 and triglyceride of less than 150 on rosuvastatin (6) GERD (gastroesophageal reflux disease): Code(s): K21.9 - Gastro-esophageal reflux disease without esophagitis Category: Medical Qualifiers: Esophagitis presence: without esophagitis Qualified Code(s): K21.9 - Gastro-esophageal reflux disease without esophagitis Plan: Avoid the foods that causes that usually spicy foods, tomato products, juices, coffee, soda and foods that your sensitive to. After eating do not lie down, allow 3-4 hours before in lie down. And keep the head of bed above 30 degrees to avoid the acid from going up. (7) BPH (benign prostatic hyperplasia): Code(s): N40.0 - Benign prostatic hyperplasia without lower urinary tract symptoms Category: Medical Qualifiers: Lower urinary tract symptom detail: urinary frequency Lower urinary tract symptom presence: symptoms present Qualified Code(s): N40.1 - Benign prostatic hyperplasia with lower urinary tract symptoms; R35.0 - Frequency of micturition Plan: Patient follows up with Neurology on terazosin and placed on tadalafil (8) Lumbar degenerative disc disease: Comment: s/p Surgery L5 -Si 2004 JApan Code(s): M51.36 - Other intervertebral disc degeneration, lumbar region Category: Medical Plan: Continue being active (9) Neuropathic pain, leg, bilateral: Comment: 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 September 2024 Code(s): G57.93 - Unspecified mononeuropathy of bilateral lower limbs Category: Medical Plan: Patient has seen Neurology and has been placed on gabapentin as well as alpha lipoic acid (10) Asthma: Code(s): J45.909 - Unspecified asthma, uncomplicated Category: Medical Qualifiers: Asthma complication type: uncomplicated Asthma persistence: intermittent Asthma severity: mild Qualified Code(s): J45.20 - Mild intermittent asthma, uncomplicated Plan: Stable (11) Plantar wart of right foot: Code(s): B07.0 - Plantar wart Category: Medical Plan: advisde to use otc Plan History of Present Illness The patient is a 75-year-old male presenting with concerns regarding peripheral neuropathy and aortic dilation. The patient reports experiencing peripheral neuropathy, which began following L4-S1 back surgery related to sciatica nerve issues. He was prescribed gabapentin and lipoic acid by neurology, noting slight improvement in symptoms, though numbness persists. The patient has a history of aortic dilation, with the ascending aorta measuring 4.6 cm, noted by cardiology. A referral for genetic testing was made due to the aortic dilation, but the patient has not yet been notified of the appointment. The patient has a history of left bundle branch block, which was not detected during a recent electrocardiogram, causing some confusion. The patient reports a plantar wart on his foot, which he has attempted to treat with sxfi-dee-pjwsorv remedies without success. He has been advised to try Compound W and, if ineffective, to consider referral to a information systems security officer or bankruptcy legal assistant for further treatment. The patient experiences insomnia, which he attributes to stress and prefers not to treat with additional medication. He is considering cognitive behavioral therapy or sleep hygiene practices as alternatives. Health Maintenance - Blood pressure monitoring: Patient advised to maintain control to prevent further aortic dilation. - Stress management: Recommended relaxation techniques to reduce stress-related health impacts. - Sleep hygiene: Consideration of cognitive behavioral therapy for insomnia management. Social History - Stress: Patient reports significant stress related to personal and external factors, impacting sleep and overall health. Review of Systems - Neurological: Reports numbness in feet, persistent despite treatment. - Cardiovascular: Denies chest pain, reports history of left bundle branch block. - Dermatological: Reports plantar wart on foot, painful when walking. - Sleep: Reports insomnia, prefers non-pharmacological interventions. Physical Exam - Cardiovascular: Heart auscultation performed, no abnormalities noted. Results - Cardiovascular: Ascending aorta measured at 4.6 cm, noted in cardiology report. - Cardiovascular: Recent electrocardiogram did not detect left bundle branch block. Plan The patient will continue with gabapentin and lipoic acid for peripheral neuropathy, with the option to increase the gabapentin dosage if symptoms persist. A referral for genetic testing regarding aortic dilation has been made, and the patient is advised to follow up with cardiology for further management. For the plantar wart, the patient is advised to try [id number] treatments such as Compound W, with a referral to a specialist if these are ineffective. Stress management techniques, including relaxation exercises, are recommended to help manage insomnia and reduce cardiovascular risk. Patient was informed and verbally consented to the use of an ambient scribe for clinic note documentation during this visit. Discussion Notes During the visit, we discussed the management of peripheral neuropathy with g abapentin and lipoic acid, noting the potential to adjust the dosage if necessary. We also reviewed the cardiology findings of aortic dilation and the need for genetic testing, advising the patient to follow up with cardiology. For the plantar wart, I recommended trying irdi-ifs-[id number] treatments initially, with a referral to a specialist if needed. We emphasized the importance of stress management and relaxation techniques to aid in managing insomnia and reducing cardiovascular risk. Patient Instructions - Continue taking gabapentin and lipoic acid as prescribed. - Follow up with cardiology regarding genetic testing for aortic dilation. - Try [id number]-[id number] treatment for plantar wart; consult a specialist if it persists. - Practice relaxation techniques to manage stress and improve sleep. Orders: Orders Thyroid Stimulating Hormone 3 Months I48.0 - Paroxysmal atrial fibrillation Lipid Panel 3 Months E78.00 - Pure hypercholesterolemia, unspecified, I48.0 - Paroxysmal atrial fibrillation Vitamin B12 and Folate 3 Months I48.0 - Paroxysmal atrial fibrillation Prostate Specific Antigen Scr 3 Months I48.0 - Paroxysmal atrial fibrillation Ferritin 3 Months I48.0 - Paroxysmal atrial fibrillation Reticulocyte Count 3 Months I48.0 - Paroxysmal atrial fibrillation Complete Blood Count Auto Diff 3 Months I48.0 - Paroxysmal atrial fibrillation Comprehensive Met. Panel 3 Months I48.0 - Paroxysmal atrial fibrillation Free T4 (Free Thyroxine) 3 Months I48.0 - Paroxysmal atrial fibrillation B Type Natriuretic Peptide 3 Months I48.0 - Paroxysmal atrial fibrillation Magnesium 3 Months I48.0 - Paroxysmal atrial fibrillation IRON PROFILE 3 Months I48.0 - Paroxysmal atrial fibrillation
[2025-02-04 09:09] VITALS: BP 112/70; PULSE 67; TEMP 36.2; O2SAT 98; BMI 24.4
== END 2025-02-04 09:54 | disposition home or self-care (01) ==
LOC: HO.HMCH 08:46
PROVIDERS: PCP Internal Medicine; Visit Provider Internal Medicine
DX: I25.811 Atherosclerosis of native coronary artery of transplanted heart without angina pectoris (principal); I10 Essential (primary) hypertension; I48.0 Paroxysmal atrial fibrillation; I71.21 Aneurysm of the ascending aorta, without rupture; E78.00 Pure hypercholesterolemia, unspecified; K21.9 Gastro-esophageal reflux disease without esophagitis; N40.1 Benign prostatic hyperplasia with lower urinary tract symptoms; R35.0 Frequency of micturition; M51.369 Other intervertebral disc degeneration, lumbar region without mention of lumbar back pain or lower extremity pain; G57.93 Unspecified mononeuropathy of bilateral lower limbs; J45.20 Mild intermittent asthma, uncomplicated; B07.0 Plantar wart

== ENCOUNTER → 2025-02-04 08:45 | Outpatient (BNVA) | payer MEDICARE, SELFPAY | PROVIDERS: PCP Internal Medicine; Visit Provider Internal Medicine | DX: I10 Essential (primary) hypertension (principal); G62.9 Polyneuropathy, unspecified; E78.00 Pure hypercholesterolemia, unspecified; K21.9 Gastro-esophageal reflux disease without esophagitis; I25.811 Atherosclerosis of native coronary artery of transplanted heart without angina pectoris; I48.0 Paroxysmal atrial fibrillation; I71.21 Aneurysm of the ascending aorta, without rupture; N40.1 Benign prostatic hyperplasia with lower urinary tract symptoms; R35.0 Frequency of micturition; M51.369 Other intervertebral disc degeneration, lumbar region without mention of lumbar back pain or lower extremity pain; G57.93 Unspecified mononeuropathy of bilateral lower limbs; J45.20 Mild intermittent asthma, uncomplicated; B07.0 Plantar wart; Z79.899 Other long term (current) drug therapy | CPT/HCPCS: 96127; 99212 ==

== ENCOUNTER 2025-04-20 10:40 | Outpatient (REF) | payer MEDICARE, SELFPAY ==
[2025-04-20 10:58] LABS: MANUAL DIFF FLAG NO
[2025-04-20 11:55] LABS: Hematocrit 41.4 % (42.0-52.0); Hemoglobin 13.1 g/dl (14.0-18.0); Imm Gran Abs Auto 0.01 X10*3/uL (0.00-0.03); Imm Gran Pct Auto 0.2 % (0.0-0.4); Lymphocytes Absolute Auto 1.1 X10*3/uL (1.2-4.9); Mean Corpuscular HGB Conc 31.6 g/dl (31.0-36.0); Mean Corpuscular Hemoglobin 29.9 pg (27.0-33.0); Mean Corpuscular Volume 94.5 fL (80.0-98.0); NRBC Abs Auto 0.000 X10*3/uL (0.0-0.012); NRBC Pct Auto 0.0 /100WBC (0.0-0.2); Platelet Count 243 X10*3/uL (160-400); Red Blood Count 4.38 X10*6/uL (4.60-5.80); Reticulocytes Absolute 0.051 X10*6/uL (0.026-0.095); White Blood Count 4.2 X10*3/uL (4.8-10.8)
[2025-04-20 12:01] LABS: NT Pro B Type Natriuretic Pept 257.7 pg/mL (<300)
[2025-04-20 12:02] LABS: Alanine Aminotransferase 20 U/L (0-40); Albumin Level 4.1 g/dL (3.5-5.0); Alkaline Phosphatase 117 U/L (39-117); Anion Gap 10 (12-20); Aspartate Amino Transferase 23 U/L (5-37); Blood Urea Nitrogen 14 mg/dL (9-16); Calcium 8.5 mg/dL (8.4-10.2); Carbon Dioxide 29 mmol/L (22-29); Chloride 107 mmol/L (96-108); Cholesterol 119 mg/dL (<200); Estimated Glomerular Filt Rate > 60; HDL Cholesterol 47 mg/dL (>40); Iron 108 mcg/dL (45-160); Magnesium 2.0 mg/dL (1.6-2.6); Percent Iron Saturation 36 % (15-50); Potassium 4.3 mmol/L (3.3-5.1); Sodium 142 mmol/L (135-145); Total Iron Binding Capacity 299 mcg/dL (228-428); Total Protein 7.0 g/dL (6.5-8.0); Triglycerides 98 mg/dL (<150); Unsaturated Iron Binding 191 ug/dL
[2025-04-20 12:23] LABS: Ferritin 32 ng/mL (20-250); Free T4 (Free Thyroxine) 0.90 ng/dL (0.71-1.85); Thyroid Stimulating Hormone 2.16 uIU/mL (0.32-4.0)
[2025-04-20 12:28] LABS: Folate 12.7 ng/mL (> or = 4.0); Vitamin B12 589 pg/mL (200-900)
--- OUTSIDE RECORDS SUMMARY | 2025-04-20 13:07 | XMS_ITS | Clinical Summary ---
Author Organization [facility] Address [address] [place] [id number] Phone Care Team Providers Care Senior Analyst Programmer Name Role Phone Pcp, Unknown Primary Care [...] 01/24/2002 ZOSTER VACCINES (1 of 2) 01/24/2002 INFLUENZA VACCINE (#1) 2025 COVID-19 VACCINE (2 - 2024-2 6 season) 2025 06/10/2021 RSV VACCINE (1 - 1-dose 75+ [...] Medical Devices Not on file Care Teams Senior Analyst Programmer Relationship Specialty Start Date End Date Pcp, Unknown PCP - General 04/19/20 Additional Source Comments The information contained in this document represents components of the legal health record. It is not the complete legal health record.[facility]
== END 2025-04-20 10:41 | disposition home or self-care (01) ==
LOC: HO.LAB 10:40
PROVIDERS: PCP Internal Medicine; Visit Provider Internal Medicine
DX: I48.0 Paroxysmal atrial fibrillation (principal); E78.00 Pure hypercholesterolemia, unspecified; Z12.5 Encounter for screening for malignant neoplasm of prostate
CPT/HCPCS: 36415; 80053; 80061; 82607; 82728; 82746; 83540; 83735; 83880; 84153; 84439; 84443; 85025; 85045

== ENCOUNTER 2025-04-28 12:19 | Outpatient (AMB) | payer MEDICARE, SELFPAY ==
[2025-04-28 12:31] VITALS: BP 134/80; PULSE 61; TEMP 36.2; O2SAT 95; BMI 24.8
--- NOTE | 2025-04-28 12:31 | MHC.PC.OV ---
Vital Signs 04/28/25 12:31 Height 6 ft 3 in Weight 198 lb 8 oz BMI 24.8 BP 134/80 Blood Pressure Location Lt brachial Position Sitting Pulse 61 Pulse Source Pulse Oximeter Temp 97.1 F Temp Source Temporal Artery Scan Pulse Oximetry (%) 95 Oxygen Delivery Method Room Air Intake Visit Reasons: annual exam Allergies LUCRECIA Inhibitors Allergy (Intermediate, Verified 04/28/25 12:34) Hyperkalemia Medication List - Last Reconciled 04/28/25 by Shira Yusuf MD alpha lipoic acid 600 mg PO DAILY apixaban (Eliquis) 5 mg PO BID 90 days carvedilol 6.25 mg PO Q12H 90 days cholecalciferol (vitamin D3) 250 mcg PO DAILY gabapentin 100 mg PO BEDTIME glucosamine HCl 500 mg PO DAILY multivitamin 1 tab PO DAILY polyvinyl alcohol 1.4% (Artificial Tears (polyvinyl alcohol)) 1 drp ophthalmic (eye) BID-QID PRN psyllium husk (Metamucil) 0.8 grams (2 x 0.4 gram) PO BEDTIME PRN rosuvastatin 10 mg PO DAILY tadalafil 20 mg PO ONCE PRN 30 days terazosin 10 mg PO BEDTIME 90 days ursodiol (BASIA Forte) 500 mg PO DAILY Tobacco use date assessed: 04/28/25 Fall risk assessment: 1 Fall in past year Last assessed Fall Risk: 04/28/25 Dental Screening Dental Screen Date: 04/28/25 Did you have a dental visit in the last 12 months?: Yes Did you have a dental problem in the last 6 months where you did not have access to dental care?: No Was dental information given to patient?: Patient has dentist [facility] Medical History Restless legs syndrome (RLS) Peripheral neuropathy Dry eye Vision changes Cystitis Weak urinary stream Left bundle branch block Paroxysmal atrial fibrillation Chronic prostatitis Surgical History Hx of colonoscopy History of cataract surgery History of lumbar surgery Family History Brother Colon cancer Non-small cell lung cancer Mother Stomach cancer Father Prostate CA Social History (Updated 04/28/25 @ 12:47 by Shira Yusuf MD) Household Members: None Housing: House Are you a primary day care assistant to a significant other at home: No Do you presently have visiting nurse or other home services: No Alcohol intake: current Alcohol intake frequency: holidays/special occasions only Comment: 1-2 glasses of wine QD decreasing Patient Tobacco Use Status: Never used Tobacco Tobacco use type: Cigarette Years Smoked: marijuana stopped also . 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 1. Little interest or pleasure in doing things: not at all 2. Feeling down, depressed, or hopeless: not at all 3. Trouble falling or staying asleep, or sleeping too much: several days 4. Feeling tired or having little energy: several days 5. Poor appetite or overeating: not at all 6. Feeling bad about yourself - or that you are a failure or have let yourself or your family down: not at all 7. Trouble concentrating on things, such as reading the newspaper or watching television: not at all 8. Moving or speaking so slowly that other people could have noticed. Or the opposite - being so fidgety or restless that you have been moving around a lot more than usual: not at all 9. Thoughts that you would be better off or of hurting yourself in some way: not at all Total score: 2 Depression Screening Interpretation: Positive Depression Screening Done: Yes Source: Developed by Drs. Mario Lee, Annabella Toscano, Gage Roberts and colleagues, with an educational malcolm from [employer]. Thrive Questionnaire Date Thrive assessed: 01/28/25 I am a: Patient What is your living situation today?: I have a steady place to live Within the past 12 months, did the food you bought not last and you didn't have the money to get more?: Never true Within the past 12 months, did you worry whether your food would run out before you got money to buy more?: Never true Do you have trouble paying for medicines?: No Do you have trouble getting transportation to medical appointments?: No Do you have trouble paying your heating and electricity bill?: No Do you have trouble taking care of your child, family member or friend?: No Do you have trouble with day-to-day activities such as bathing, preparing meals, shopping, managing finances, etc.?: No Are you currently unemployed and looking for a job?: No Are you interested in more education?: No Please select the resources that you would like help with: None Currently or been in a relationship where the following occur: No concerns reported THRIVE Score: 0 AUDIT C Alcohol Use Questionnaire (AUDIT-C) 1. How often do you have a drink containing alcohol?: Monthly or less 2. How many drinks containing alcohol do you have on a typical day when you are drinking?: 1 or 2 3. How often do you have six or more drinks on one occasion?: Never Total Score: 1 NEMO-7 AMB Questionnaire NEOM-7 Date NEMO - 7 assessed: 02/04/25 Feeling nervous, anxious, or on edge: 1 = Several days Not being able to stop or control worryin = Several days Worrying too much about different things: 1 = Several days Trouble relaxin = Several days Being so restless that it is hard to sit still: 1 = Several days Becoming easily annoyed or irritable: 1 = Several days Feeling afraid as if something awful might happen: 0 = Not at all Total NEMO-7 score (0-4 normal; 5-9 mild; 10-14 moderate; 15-21 severe): 6 Source: Developed by Drs. Mario Lee, Annabella Toscano, Gage Roberts and colleagues, with an educational malcolm from [employer]. Review of Systems Const Denies poor appetite and Denies weakness Eyes Denies no additional complaints ENT Reports Normal hearing present, Denies dizziness, Denies nasal congestion, Denies tinnitus and Denies sore throat Card Denies chest pain, Denies syncope, Denies rapid heart rate and Denies dyspnea Resp Denies cough and Denies dyspnea GI Denies change in stool character, Reports constipation, Denies diarrhea, Denies nausea and Denies vomiting Denies dysuria and Denies urinary frequency Neuro Reports Normal hearing present, Denies confusion, Denies dizziness, Denies syncope and Denies weakness Psych Denies confusion Physical exam (Primary Care) Vital Signs: Last Vital Signs Temp 97.1 F 04/28/25 12:31 Pulse 61 04/28/25 12:31 BP 134/80 04/28/25 12:31 Pulse Ox 95 04/28/25 12:31 Oxygen Delivery Method Room Air 04/28/25 12:31 BMI result Body Mass Index 24.8 Tobacco/Smoking Status: Tobacco use Status Tobacco use date assessed 04/28/25 04/28/25 12:36 Patient Tobacco Use Status Never used Tobacco 04/28/25 12:36 Tobacco use type Cigarette 04/28/25 12:36 e-Cigarette/Vaping Use Never Used 04/28/25 12:36 PHQ-9: PHQ-9 Score PHQ-9: Total score 2 04/28/25 12:36 Depression Screening Interpretation: Positive Thrive Assessment: Date of Thrive Assessment Date Thrive assessed 01/28/25 04/28/25 12:36 Currently or been in a relationship where the following occur: No concerns reported Const General: No confusion Orientation/consciousness: No confusion HENMT Head: Yes normocephalic Ears: external ears normal and TM's normal bilaterally Face and sinus: Yes normal facial exam Mouth: moist mucous membranes Throat: Yes tonsils normal Eyes Conjunctivae: conjunctivae normal Pupils: Equal, round and reactive pupils present and Pupil accommodation reflex normal Direct Ophthalmoscopy: normal light reflex Neck Neck: No lymphadenopathy Thyroid: Thyroid normal Chest Chest palpation & inspection: normal inspection of the chest Resp Effort & Inspection: normal respiratory effort and no audible wheezes Auscultation: clear to auscultation bilaterally, no crackles, no wheezes and lung sounds not diminished Cardio Rate: regular rate Rhythm: regular rhythm Peripheral pulses: radial pulses present and dorsalis pedis present GI Other: colon 06/2024 Palpation (GI): no masses Auscultation: normal bowel sounds and normoactive bowel sounds Rectal Exam - Male: Yes deferred Male General Exam: Yes normal external exam Skin General skin exam: no rashes or lesions noted Rashes: no rashes Neuro General: No confusion Cranial nerves: Yes Equal, round and reactive pupils present and Yes Normal hearing present Cognition (Neuro): normal cognition Gait exam (Neuro): Normal gait present Motor exam (neuro): 5/5 motor strength present throughout Deep tendon reflexes (DTR's): Right brachioradialis reflex intensity grade: 2+, Left brachioradialis reflex intensity grade: 2+, Right patellar reflex intensity grade: 2+ and Left patellar reflex intensity grade: 2+ Extrem General: No edema Coding Level of Care Code Est Pt Prev Care >65y(35878) Diagnoses Annual physical exam Z00.00 Paroxysmal atrial fibrillation I48.0 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 transplanted heart: transplanted heart Associated angina: without angina Primary hypertension I10 Hypertension type: primary hypertension Hypercholesterolemia E78.00 Gastroesophageal reflux disease without esophagitis K21.9 Esophagitis presence: without esophagitis Benign prostatic hyperplasia with urinary frequency N40.1; R35.0 Lower urinary tract symptom presence: symptoms present Lower urinary tract symptom detail: urinary frequency Normochromic normocytic anemia D64.9 Lumbar degenerative disc disease M51.36 Mild intermittent asthma without complication J45.20 Asthma severity: mild Asthma persistence: intermittent Asthma complication type: uncomplicated Assessment & Plan Assessment & Plan (1) Annual physical exam: Code(s): Z00.00 - Encounter for general adult medical examination without abnormal findings Category: Medical Plan: Patient is advised to eat healthy, keep well hydrated, keep active and have adequate sleep. (2) Paroxysmal atrial fibrillation: Comment: Status post radiofrequency ablation in 1993 and cryoablation in 2016 Code(s): I48.0 - Paroxysmal atrial fibrillation Category: Medical Plan: On Eliquis some annual renal function continue with carvedilol (3) Atherosclerotic heart disease: Comment: CT angio August 2022, echocardiogram July 2023 51% Code(s): I25.10 - Atherosclerotic heart disease of [place] coronary artery without angina pectoris Category: Medical Qualifiers: Coronary Disease-Associated Artery/Lesion type: [place] artery [place] vs. 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 Decrease salt intake and exercise on carvedilol 6.25 mg twice a day (5) Hypercholesterolemia: Code(s): E78.00 - Pure hypercholesterolemia, unspecified Category: Medical Plan: Avoid fried foods, chicken skin, eggs, butter margarine, pastries and meat. Be it pork or beef they have a lot of cholesterol on rosuvastatin 10 mg once a (6) GERD (gastroesophageal reflux disease): Code(s): K21.9 - Gastro-esophageal reflux disease without esophagitis Category: Medical Qualifiers: Esophagitis presence: without esophagitis Qualified Code(s): K21.9 - Gastro-esophageal reflux disease without esophagitis Plan: Avoid the foods that causes that usually spicy foods, tomato products, juices, coffee, soda and foods that your sensitive to. After eating do not lie down, allow 3-4 hours before in lie down. And keep the head of bed above 30 degrees to avoid the acid from going up. (7) BPH (benign prostatic hyperplasia): Code(s): N40.0 - Benign prostatic hyperplasia without lower urinary tract symptoms Category: Medical Qualifiers: Lower urinary tract symptom presence: symptoms present Lower urinary tract symptom detail: urinary frequency Qualified Code(s): N40.1 - Benign prostatic hyperplasia with lower urinary tract symptoms; R35.0 - Frequency of micturition Plan: Continue with terazosin (8) Normochromic normocytic anemia: Code(s): D64.9 - Anemia, unspecified Category: Medical Plan: Continuing to monitor (9) Lumbar degenerative disc disease: Comment: s/p Surgery L5 -Si 2004 [facility] Code(s): M51.36 - Other intervertebral disc degeneration, lumbar region Category: Medical Plan: On gabapentin (10) Asthma: Code(s): J45.909 - Unspecified asthma, uncomplicated Category: Medical Qualifiers: Asthma severity: mild Asthma persistence: intermittent Asthma complication type: uncomplicated Qualified Code(s): J45.20 - Mild intermittent asthma, uncomplicated Plan: Stable Plan History of Present Illness The patient is a 75-year-old male presenting for a physical examination. He reports an episode of suspected food poisoning last , which caused significant stomach ache and diarrhea; he continues to experience a lingering headache and does not feel fully recovered. The patient also notes occasional episodes of feeling disoriented or almost fainting upon standing up. His past medical history is significant for atherosclerotic heart disease, atrial fibrillation status post two ablation procedures, hypertension, hypercholesterolemia, asthma, and Gilbert syndrome. He has an enlarged aorta and has been advised to limit lifting to under 40 pounds, though he admits to not always adhering to this. Chronic conditions include stable anemia of chronic disease and leukopenia, which have been present for a long time. He has benign prostatic hyperplasia, managed by urology, with symptoms of a weak stream and nocturia one to three times per night that have not worsened. He also has peripheral neuropathy in his feet, which is stable on gabapentin, and cervical/thoracic degenerative disc disease, with a recent, resolved episode of sharp neck pain. The patient is concerned about erectile dysfunction, which he relates to his blood pressure medication, and notes that tadalafil is only occasionally effective. Regarding health maintenance, his last colonoscopy was in June and he is due for the next one in five years. He had a combined influenza and COVID-19 vaccine and received an RSV vaccine last year. His last eye exam was in June with no significant findings. He reports having cut down his alcohol intake to almost nothing and has not smoked marijuana in a long time. Health Maintenance - Colonoscopy: Patient completed a colonoscopy in June, with the next screening recommended in five years. - Vaccinations: Patient has received a combined influenza and COVID-19 vaccine. He received the RSV vaccine last year. - Vision Screening: Last eye exam was in June, with no problems found. - Laboratory Screening (April 20): Recent bloodwork showed an LDL of 53 mg/dL, a normal PSA, and normal levels of vitamin B12, folic acid, and thyroid hormone. - Blood Glucose: His fasting blood sugar was slightly elevated at 101 mg/dL, but his hemoglobin A1c has been normal. - Substance Use Counseling: Discussed the risks of alcohol with hypertension and memory impairment; patient reports having cut down consumption significantly. Also discussed the correlation between smoking marijuana and bladder cancer; patient reports he has not smoked in a long time. Social History - Alcohol Use: Patient has significantly reduced his alcohol consumption to almost nothing, occasionally having a beer. - Substance Use: He denies smoking marijuana for a long time and does not use cannabis edibles. 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 Review of Systems - General: Denies fainting. Reports feeling not fully recovered from a recent illness. - Neurological: Reports a lingering headache and discomfort since last week. Reports occasional episodes of feeling disoriented or almost fainting upon standing. Denies syncope. Reports stable symptoms of neuropathy in his feet. He had a sharp neck pain about two weeks ago that has since resolved. - Gastrointestinal: Reports a recent history of diarrhea and a significant stomach ache from suspected food poisoning. Denies current nausea or vomiting. - Cardiovascular: Denies chest pain. - Genitourinary: Reports a weak urinary stream, described as a dribble, and nocturia occurring one to three times per night. Reports erectile dysfunction. - HEENT: Reports hearing is good. Denies ear pain. Denies new allergies. Physical Exam General: Cooperative, healthy appearing, comfortable, no acute distress and well developed Orientation: Patient oriented x3 Limitations: No limitations Head: Normal to inspection Ears: Hearing grossly normal bilaterally Nose: Normal external nose present Face and sinus: Normal facial exam Eyes: Appearance normal, both eyes and all related structures Neck: Normal visual inspection and Yes full ROM Respiratory: Normal respiratory effort and able to speak in complete sentences. Clear to auscultation bilaterally Cardiovascular: Regular rate and rhythm. Normal S1 and S2 GI: Normal to inspection. Soft to palpation and nontender, but patient reports recent episode of food poisoning with diarrhea and stomach ache. Skin: No rashes or lesions noted Neuro: Patient oriented x3, reports occasional disorientation or near-fainting episodes, but no complete loss of consciousness. Extremities: Normal to inspection Results - Labs (April 20): - CBC: Revealed anemia of chronic disease and leukopenia, both noted to be stable and borderline low. - BMP: Electrolytes, renal function, and kidney function were good. Blood sugar was elevated at 101 mg/dL. - Lipid Panel: LDL cholesterol was 53 mg/dL. - Other labs: Hemoglobin A1c was normal. Iron, liver function, PSA, vitamin B12, folic acid, and thyroid levels were all within normal limits. Plan Patient was informed and verbally consented to the use of an ambient scribe for clinic note documentation during this visit. 1. Wellness Exam And Health Maintenance A 90-day refill for gabapentin 100 mg was provided. The patient will continue his current medication regimen. We will continue to monitor renal function semiannually due to his use of Eliquis. His recent lab work was reviewed, noting a slightly elevated fasting glucose of 101 mg/dL, and he was advised to be mindful of carbohydrate intake. Follow-up is scheduled in six months. 2. Atrial Fibrillation Continue anticoagulation with Eliquis and rate control with carvedilol 6.25 mg twice a day. 3. Hypertension Continue carvedilol 6.25 mg twice a day. 4. Hypercholesterolemia Continue rosuvastatin 10 mg once a day. The patient's LDL is 53 mg/dL, which is within the goal of less than 70 mg/dL. 5. Benign Prostatic Hyperplasia Continue terazosin and monitor symptoms. The patient will continue follow-up with his urologist, Dr. Garcia. 6. Anemia Of Chronic Disease And Leukopenia The patient's anemia and leukopenia are chronic and stable. We will continue to monitor these conditions, and no further workup, such as a bone marrow biopsy, is indicated at this time as long as his counts remain stable. 7. Erectile Dysfunction The patient's erectile dysfunction is likely a side effect of carvedilol, which is essential for his heart condition and cannot be adjusted. He was advised to discuss alternative, non-systemic treatments such as penile injections or manual suction devices with his urologist. 8. Acute Gastroenteritis The patient is recovering from a recent episode of suspected food poisoning. He was counseled on the importance of hydration, advising him to drink 6-8 glasses (approximately 60 ounces) of water daily. 9. Peripheral Neuropathy He will continue taking gabapentin for stable symptoms of neuropathy in his feet. Discussion Notes I reviewed the patient's recent lab results from April 20. I noted his LDL is well-controlled at 53, and his chronic, stable anemia and leukopenia remain at baseline. I explained that while his fasting blood sugar was slightly elevated at 101, his A1c is normal and no intervention is required at this time, other than being mindful of his diet. We had an extensive discussion about his erectile dysfunction. I explained that his heart medication, carvedilol, is a likely contributor but is critical for his cardiac health and cannot be discontinued or have its dose lowered. I emphasized that the heart takes priority and recommended he discuss non-medicinal options, such as penile injections or vacuum devices, with his urologist. I reassured him that as long as his anemia and leukopenia remain stable, an invasive procedure like a bone marrow biopsy is not necessary. I also reinforced the importance of adhering to his 40-pound lifting restriction due to his enlarged aorta. For his recovery from the recent gastroenteritis episode, I advised him to maintain good hydration. I will see him for follow-up in six months. Patient Instructions - Continue to take all your current medications as prescribed, including Eliquis, carvedilol, and rosuvastatin. - We have sent a 90-day refill for your gabapentin to your pharmacy. - To help your body recover from the recent stomach illness, please make sure to drink plenty of fluids, aiming for 6 to 8 glasses of water (about 60 ounces) each day. - Your blood sugar was a little high on your recent labs. Be mindful of eating sugary foods and drinking sugary beverages. - Regarding erectile dysfunction, you must continue your heart medication, carvedilol. Please speak with your urologist about other treatment options like injections or suction devices. - Remember not to lift anything heavier than 40 pounds because of your enlarged aorta. - Please schedule a follow-up appointment in six months. Medications: Refilled gabapentin 100 mg PO BEDTIME 90 caps 0RF
--- OUTSIDE RECORDS SUMMARY | 2025-04-28 15:05 | XMS_ITS | Clinical Summary ---
Author Organization [facility] Address [address] [place] [phone] Phone Care Team Providers Care Design Assistant Name Role Phone Pcp, Unknown Primary Care [...] Medical Devices Not on file Care Teams Design Assistant Relationship Specialty Start Date End Date Pcp, Unknown PCP - General 04/19/20 Additional Source Comments The information contained in this document represents components of the legal health record. It is not the complete legal health record.[facility]
== END 2025-04-28 13:06 | disposition home or self-care (01) ==
LOC: HO.HMCH 12:19
PROVIDERS: PCP Internal Medicine; Visit Provider Internal Medicine
DX: Z00.00 Encounter for general adult medical examination without abnormal findings (principal); I48.0 Paroxysmal atrial fibrillation; I25.811 Atherosclerosis of native coronary artery of transplanted heart without angina pectoris; I10 Essential (primary) hypertension; E78.00 Pure hypercholesterolemia, unspecified; K21.9 Gastro-esophageal reflux disease without esophagitis; N40.1 Benign prostatic hyperplasia with lower urinary tract symptoms; R35.0 Frequency of micturition; D64.9 Anemia, unspecified; M51.369 Other intervertebral disc degeneration, lumbar region without mention of lumbar back pain or lower extremity pain; J45.20 Mild intermittent asthma, uncomplicated

== ENCOUNTER → 2025-04-28 12:19 | Outpatient (BNVA) | payer MEDICARE, SELFPAY | PROVIDERS: PCP Internal Medicine; Visit Provider Internal Medicine | DX: Z00.00 Encounter for general adult medical examination without abnormal findings (principal); I48.0 Paroxysmal atrial fibrillation; I25.811 Atherosclerosis of native coronary artery of transplanted heart without angina pectoris; I10 Essential (primary) hypertension; E78.00 Pure hypercholesterolemia, unspecified; K21.9 Gastro-esophageal reflux disease without esophagitis; N40.1 Benign prostatic hyperplasia with lower urinary tract symptoms; R35.0 Frequency of micturition; D64.9 Anemia, unspecified; M51.369 Other intervertebral disc degeneration, lumbar region without mention of lumbar back pain or lower extremity pain; J45.20 Mild intermittent asthma, uncomplicated; D72.819 Decreased white blood cell count, unspecified; N52.9 Male erectile dysfunction, unspecified; G62.9 Polyneuropathy, unspecified | CPT/HCPCS: 96127; 99397 ==